=== PATIENT | male | born 1990 | race American Indian/Alaskan Native ===

== ENCOUNTER 2017-04-17 12:21 | Inpatient (IN) | payer SELFPAY ==
[~2017-04-17] VITALS: Ht 193 cm; Wt 90.9 kg
--- NOTE | 2017-04-17 13:24 | PHYS DOC ---
Past Medical History Past Medical History: Pancreatitis Past Surgical History: No Surgical History Alcohol Use: Heavy Drug Use: Benzodiazepine, Opiates Social History Narrative: friend's hydrocodone and xanax yesterday for pain Adult General Chief Complaint Chief Complaint: ABDOMINAL PAIN HPI HPI Patient is a 26 year old male with history of pancreatitis alcohol-induced who presents today abdominal pain moderate in nature with nausea and vomiting that began yesterday. Patient states his pain is on the left upper quadrant and radiates to the left flank region. Patient states he has been during this weekend. He states this typically induces his pancreatitis. Patient denies any fever. Denies any hematemesis. He is actively vomiting in the ED. Review of Systems Review of Systems Constitutional: Denies fever or chills [] Eyes: Denies change in visual acuity, redness, or eye pain [] HENT: Denies nasal congestion or sore throat [] Respiratory: Denies cough or shortness of breath [] Cardiovascular: No additional information not addressed in HPI [] GI: LUQ abdominal pain, nausea, vomiting, denies diarrhea [] : Denies dysuria or hematuria [] Musculoskeletal: Denies back pain or joint pain [] Integument: Denies rash or skin lesions [] Neurologic: Denies headache, focal weakness or sensory changes [] All other systems were reviewed and found to be within normal limits, except as documented in this note. Current Medications Current Medications Current Medications Medications (Trade) Dose Ordered Sig/Barb Start Time Stop Time Status Last Admin Dose Admin Famotidine (Pepcid Vial) 20 mg 1X ONCE 04/17/17 13:30 04/17/17 13:31 DC 04/17/17 13:45 20 MG Hydromorphone HCl (Dilaudid) 2 mg 1X ONCE 04/17/17 15:45 04/17/17 15:46 DC 04/17/17 15:44 2 MG Info (Do NOT chart on this entry -- for MONITORING) 1 each PRN DAILY PRN 04/17/17 13:30 04/19/17 13:29 Iohexol (Omnipaque 300 Mg/ml) 75 ml 1X ONCE 04/17/17 13:30 04/17/17 13:31 DC 04/17/17 13:30 75 ML Ondansetron HCl (Zofran) 8 mg 1X ONCE 04/17/17 13:30 04/17/17 13:31 DC 04/17/17 13:42 8 MG Sodium Chloride 1,000 ml @ 1,000 mls/hr 1X ONCE 04/17/17 13:30 04/17/17 14:29 DC 04/17/17 13:42 1,000 MLS/HR Allergies Allergies Allergies Coded Allergies Type Severity Reaction Last Updated Verified No Known Drug Allergies 04/17/17 No Physical Exam Physical Exam Constitutional: Well developed, well nourished, no acute distress, non-toxic appearance. [] HENT: Normocephalic, atraumatic, bilateral external ears normal, oropharynx moist, no oral exudates, nose normal. [] Eyes: PERRLA, EOMI, conjunctiva normal, no discharge. [] Neck: Normal range of motion, no tenderness, supple, no stridor. [] Cardiovascular:Heart rate regular rhythm, no murmur [] Lungs & Thorax: Bilateral breath sounds clear to auscultation [] Abdomen: Bowel sounds normal, soft, patient is actively vomiting in the ED. Tenderness on palpation of the left upper quadrant. Skin: Warm, dry, no erythema, no rash. [] Back: No tenderness, no CVA tenderness. [] Extremities: No tenderness, no cyanosis, no clubbing, ROM intact, no edema. [] Neurologic: Alert and oriented X 3, normal motor function, normal sensory function, no focal deficits noted. [] Psychologic: Affect normal, judgement normal, mood normal. [] Current Patient Data Vital Signs Vital Signs Date Time Temp Pulse Resp B/P (MAP) Pulse Ox O2 Delivery O2 Flow Rate FiO2 04/17/17 15:44 Room Air 04/17/17 15:04 56 16 153/100 (117) 98 04/17/17 12:55 97.9 97.9 Lab Values Laboratory Tests Test 04/17/17 13:05 04/17/17 15:04 White Blood Count 13.9 x10^3/uL (4.0-11.0) H Red Blood Count 5.29 x10^6/uL (4.30-5.70) Hemoglobin 16.4 g/dL (13.0-17.5) Hematocrit 47.1 % (39.0-53.0) Mean Corpuscular Volume 89 fL (79-100) Mean Corpuscular Hemoglobin 31 pg (25-35) Mean Corpuscular Hemoglobin Concent 35 g/dL (31-37) Red Cell Distribution Width 13.8 % (11.5-14.5) Platelet Count 170 x10^3/uL (140-400) Neutrophils (%) (Auto) 89 % (31-73) H Lymphocytes (%) (Auto) 5 % (24-48) L Monocytes (%) (Auto) 6 % (0-9) Eosinophils (%) (Auto) 0 % (0-3) Basophils (%) (Auto) 1 % (0-3) Neutrophils # (Auto) 12.4 x10^3uL (1.8-7.7) H Lymphocytes # (Auto) 0.6 x10^3/uL (1.0-4.8) L Monocytes # (Auto) 0.8 x10^3/uL (0.0-1.1) Eosinophils # (Auto) 0.0 x10^3/uL (0.0-0.7) Basophils # (Auto) 0.1 x10^3/uL (0.0-0.2) Segmented Neutrophils % 83 % (35-66) H Band Neutrophils % 10 % (0-9) H Lymphocytes % 1 % (24-48) L Atypical Lymphocytes % (Manual) 2 % (0-0) H Monocytes % 4 % (0-10) Platelet Estimate Adequate (ADEQUATE) Sodium Level 140 mmol/L (136-145) Potassium Level 3.7 mmol/L (3.5-5.1) Chloride Level 101 mmol/L (98-107) Carbon Dioxide Level 25 mmol/L (21-32) Anion Gap 14 (6-14) Blood Urea Nitrogen 13 mg/dL (8-26) Creatinine 0.8 mg/dL (0.7-1.3) Estimated GFR (Cockcroft-Gault) 118.8 BUN/Creatinine Ratio 16 (6-20) Glucose Level 131 mg/dL (70-99) H Calcium Level 9.6 mg/dL (8.5-10.1) Total Bilirubin 1.4 mg/dL (0.2-1.0) H Aspartate Amino Transferase (AST) 32 U/L (15-37) Alanine Aminotransferase (ALT) 48 U/L (16-63) Alkaline Phosphatase 117 U/L (46-116) H Total Protein 7.7 g/dL (6.4-8.2) Albumin 4.3 g/dL (3.4-5.0) Albumin/Globulin Ratio 1.3 (1.0-1.7) Lipase 2230 U/L (73-393) H Ethyl Alcohol Level < 10 mg/dL (0-10) Urine Collection Type Unknown Urine Color Yellow Urine Clarity Clear Urine pH 6.0 Urine Specific [place] >=1.030 Urine Protein Negative mg/dL (NEG-TRACE) Urine Glucose (UA) Negative mg/dL (NEG) Urine Ketones (Stick) Negative mg/dL (NEG) Urine Blood Negative (NEG) Urine Nitrite Negative (NEG) Urine Bilirubin Negative (NEG) Urine Urobilinogen Dipstick 0.2 mg/dL (0.2 mg/dL) Urine Leukocyte Esterase Negative (NEG) Urine RBC 1-2 /HPF (0-2) Urine WBC 0 /HPF (0-4) Urine Squamous Epithelial Cells Few /LPF Urine Bacteria 0 /HPF (0-FEW) Urine Mucus Mod /LPF Urine Opiates Screen Pos (NEG) Urine Methadone Screen Neg (NEG) Urine Barbiturates Neg (NEG) Urine Phencyclidine Screen Neg (NEG) Urine Amphetamine/Methamphetamine Neg (NEG) Urine Benzodiazepines Screen Neg (NEG) Urine Cocaine Screen Neg (NEG) Urine Cannabinoids Screen Neg (NEG) Urine Ethyl Alcohol Neg (NEG) Laboratory Tests 04/17/17 13:05 Laboratory Tests 04/17/17 13:05 EKG EKG [] Radiology/Procedures Radiology/Procedures []PROCEDURE: CT ABD PELV W/ IV CONTRST ONLY CT abdomen and pelvis with contrast Indication: Upper abdominal pain and vomiting since yesterday. History of pancreatitis. Technique: CT abdomen and pelvis with 75 mL of Omnipaque 300 with multi planar reformats. Comparison: None Findings: Heart is normal in size. No pericardial or pleural effusion. Clear lung bases. Liver is normal in morphology without focal hepatic lesion. Spleen is not enlarged. Gallbladder is distended without radiopaque gallstones. No pericholecystic fluid or gallbladder wall thickening. Pancreas is diffusely thickened with low attenuation in the pancreatic tail and peripancreatic inflammatory changes. There is a 4.2 x 2.1 cm fluid collection along the pancreatic tail the pancreas demonstrate homogeneous enhancement suggesting no necrosis. High attenuating nodule in the left lower quadrant measuring 1.7 cm likely accessory spleen. Trace amount of perisplenic fluid noted. No retroperitoneal or pelvic adenopathy. No bowel obstruction. Normal appendix. The main portal vein and splenic artery are patent. Multiple perigastric and perisplenic collaterals noted. Patency of distal splenic vein is not confirmed. Adrenal glands are within normal limits. No hydronephrosis or suspicious renal lesion. Bladder within normal limits. The prostate and seminal vesicles show no mass lesion. No suspicious bony lesion. Impression: Findings of acute interstitial edematous pancreatitis with small amount of peripancreatic fluid collection along the pancreatic tail. PQRS Compliance Statement: One or more of the following individualized dose reduction techniques were utilized for this examination: 1. Automated exposure control 2. Adjustment of the mA and/or kV according to patient size 3. Use of iterative reconstruction technique DICTATED and SIGNED BY: MECHELLE MONZON DO DATE: 04/17/17 1423 CC: JULIANA KRUEGER APRN; NO PCP; NON,STAFF ~ Course & Med Decision Making Course & Med Decision Making Pertinent Labs and Imaging studies reviewed. (See chart for details) This is a 26-year-old male patient presenting to the ED today with abdominal pain nausea and vomiting, he has history of pancreatitis and spent the drinking. CBC with a WBC of 13.9, lipase 2230 CT of the abdomen and pelvic was noted for acute interstitial demented] head to his with small amount of pancreatic fluid collection along the pancreatic tail. Patient was started on IV fluids, nausea and pain medicine. Consulted with Dari MANINNG for GI, who will follow-up with patient upon admission. Consulted Dr. iKm who accepted patient for admission. Dragon Disclaimer Dragon Disclaimer This electronic medical record was generated, in whole or in part, using a voice recognition dictation system. Departure Departure Impression: Primary Impression: Acute pancreatitis Additional Impression: ETOH abuse Disposition: ADMITTED INPATIENT Condition: STABLE Referrals: NO PCP (PCP) Problem Qualifiers Primary Impression: Acute pancreatitis Pancreatitis type: alcohol induced Acute pancreatitis complication: unspecified Qualified Codes: K85.20 - Alcohol induced acute pancreatitis without necrosis or infection JULIANA KRUEGER APRN Apr 17, 2017 13:24
[2017-04-17 13:28] LABS: BASO # 0.1 x10^3/uL (0.0-0.2); BASO % 1 % (0-3); EOS % 0 % (0-3); HEMATOCRIT 47.1 % (39.0-53.0); HEMOGLOBIN 16.4 g/dL (13.0-17.5); LYMPH # 0.6 x10^3/uL (1.0-4.8); LYMPH % 5 % (24-48); MEAN CORPUSCULAR HEMOGLOBIN 31 pg (25-35); MEAN CORPUSCULAR HGB CONC 35 g/dL (31-37); MEAN CORPUSCULAR VOLUME 89 fL (79-100); MONO % 6 % (0-9); NEUT % 89 % (31-73); PLATELET COUNT 170 x10^3/uL (140-400); RED BLOOD COUNT 5.29 x10^6/uL (4.30-5.70); RED CELL DISTRIBUTION WIDTH 13.8 % (11.5-14.5); WHITE BLOOD COUNT 13.9 x10^3/uL (4.0-11.0)
[2017-04-17] MEDS ORDERED: CONTRAST GIVEN MC PRN (13:30)
[2017-04-17] MEDS ORDERED: ONDANSETRON PF 4 MG/2 ML VIAL. IV ONE (13:30)
[2017-04-17] MEDS ORDERED: FAMOTIDINE 20 MG/2 ML VIAL IVP ONE (13:30)
[2017-04-17] MEDS ORDERED: IV NORMAL SALINE 1000ML BAG 1,000 ML IV ONE ×2 (13:30→16:15)
[2017-04-17] MEDS ORDERED: HYDROmorphone 2 MG/ML VIAL IV ONE ×2 (13:30→15:45)
[2017-04-17] MEDS ORDERED: IOHEXOL 300 MG/ML 100ML VIAL. IV ONE (13:30)
[2017-04-17 13:37] LABS: CALCIUM 9.6 mg/dL (8.5-10.1); CREATININE 0.8 mg/dL (0.7-1.3); GFR 118.8; POTASSIUM 3.7 mmol/L (3.5-5.1)
[2017-04-17 13:44] LABS: ALBUMIN 4.3 g/dL (3.4-5.0); ALBUMIN/GLOBULIN RATIO 1.3 (1.0-1.7); TOTAL BILIRUBIN 1.4 mg/dL (0.2-1.0); TOTAL PROTEIN 7.7 g/dL (6.4-8.2)
[2017-04-17 13:56] LABS: PLT ESTIMATE ADEQUATE (ADEQUATE)
[2017-04-17 15:18] LABS: BILIRUBIN,URINE NEGATIVE (NEG); GLUCOSE,URINE NEGATIVE (NEG); NITRITE,URINE NEGATIVE (NEG); PROTEIN,URINE NEGATIVE (NEG-TRACE); UROBILINOGEN,URINE 0.2 mg/dL (0.2 mg/dL)
[2017-04-17 15:33] LABS: BARBITURATES NEG (NEG); BENZODIAZEPINES NEG (NEG); CANNABINOIDS NEG (NEG); COCAINE NEG (NEG); METHADONE NEG (NEG); OPIATES POS (NEG); PHENCYCLIDINE NEG (NEG)
[2017-04-17 15:34] LABS: BACTERIA,URINE 0 /HPF (0-FEW); SQUAMOUS EPITHELIAL CELL,UR FEW /LPF; WBC,URINE 0 /HPF (0-4)
--- NOTE | 2017-04-17 15:48 | RAD ---
CT abdomen and pelvis with contrast Indication: Upper abdominal pain and vomiting since yesterday. History of pancreatitis. Technique: CT abdomen and pelvis with 75 mL of Omnipaque 300 with multi planar reformats. Comparison: None Findings: Heart is normal in size. No pericardial or pleural effusion. Clear lung bases. Liver is normal in morphology without focal hepatic lesion. Spleen is not enlarged. Gallbladder is distended without radiopaque gallstones. No pericholecystic fluid or gallbladder wall thickening. Pancreas is diffusely thickened with low attenuation in the pancreatic tail and peripancreatic inflammatory changes. There is a 4.2 x 2.1 cm fluid collection along the pancreatic tail the pancreas demonstrate homogeneous enhancement suggesting no necrosis. High attenuating nodule in the left lower quadrant measuring 1.7 cm likely accessory spleen. Trace amount of perisplenic fluid noted. No retroperitoneal or pelvic adenopathy. No bowel obstruction. Normal appendix. The main portal vein and splenic artery are patent. Multiple perigastric and perisplenic collaterals noted. Patency of distal splenic vein is not confirmed. Adrenal glands are within normal limits. No hydronephrosis or suspicious renal lesion. Bladder within normal limits. The prostate and seminal vesicles show no mass lesion. No suspicious bony lesion. Impression: Findings of acute interstitial edematous pancreatitis with small amount of peripancreatic fluid collection along the pancreatic tail. PQRS Compliance Statement: One or more of the following individualized dose reduction techniques were utilized for this examination: 1. Automated exposure control 2. Adjustment of the mA and/or kV according to patient size 3. Use of iterative reconstruction technique
[2017-04-17] MEDS ORDERED: ONDANSETRON PF 4 MG/2 ML VIAL. IV PRN ×2 (16:15→21:45)
[2017-04-17] MEDS ORDERED: HYDROmorphone 2 MG/ML VIAL IV PRN (16:15)
--- NOTE | 2017-04-17 17:33 | PDOC2 ---
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 Ill since yesterday w/ upper/left-sided abd pain and n/v. Pain radiates to left back, similar to three previous episodes of pancreatitis which have been attributed to alcohol. Binge drinks up to 10 beers + a few mixed drinks in a day. Can go a couple weeks w/o drinking, had been drinking recently (after Thanksgiving). Occasional reflux after certain foods, untreated. No diarrhea, constipation, or bleeding. No previous EGD or colonoscopy. No GB or liver history. No NSAIDs. Labs: WBC 13.9, bili 1.4, Alk Phos 117, lipase 2230. CT: pancreas is diffusely thickened with low attenuation in the pancreatic tail and peripancreatic inflammatory changes w/ a 4.2 x 2.1 cm fluid collection along the pancreatic tail the pancreas demonstrate homogeneous enhancement suggesting no necrosis. PMH: PMH: HTN, GERD, pancreatitis, exploratory surgery for abnormal imaging of back ( nothing found) FH: Family History: Cancer (breast - MGM, stomach and bone - MGF, esopahgeal - materal great uncle), Other (cholecystectomy - mother) Social History: ALCOHOL: heavy Drugs: None ROS: GEN: Denies fevers, chills, sweats HEENT: Denies blurred vision, sore throat CV: Denies chest pain RESP: Denies shortness of air, cough GI: Per HPI : Denies hematuria, dysuria ENDO: Denies weight changes NEURO: Denies confusion, dizziness MSK: Denies weakness, joint pain/swelling SKIN: Denies jaundice, pruritus Vitals: Vitals: Vital Signs Date Time Temp Pulse Resp B/P (MAP) Pulse Ox O2 Delivery O2 Flow Rate FiO2 04/17/17 15:44 Room Air 04/17/17 15:04 56 16 153/100 (117) 98 04/17/17 12:55 97.9 97.9 Labs: Labs: Laboratory Tests Test 04/17/17 13:05 04/17/17 15:04 White Blood Count 13.9 x10^3/uL (4.0-11.0) Red Blood Count 5.29 x10^6/uL (4.30-5.70) Hemoglobin 16.4 g/dL (13.0-17.5) Hematocrit 47.1 % (39.0-53.0) Mean Corpuscular Volume 89 fL (79-100) Mean Corpuscular Hemoglobin 31 pg (25-35) Mean Corpuscular Hemoglobin Concent 35 g/dL (31-37) Red Cell Distribution Width 13.8 % (11.5-14.5) Platelet Count 170 x10^3/uL (140-400) Neutrophils (%) (Auto) 89 % (31-73) Lymphocytes (%) (Auto) 5 % (24-48) Monocytes (%) (Auto) 6 % (0-9) Eosinophils (%) (Auto) 0 % (0-3) Basophils (%) (Auto) 1 % (0-3) Neutrophils # (Auto) 12.4 x10^3uL (1.8-7.7) Lymphocytes # (Auto) 0.6 x10^3/uL (1.0-4.8) Monocytes # (Auto) 0.8 x10^3/uL (0.0-1.1) Eosinophils # (Auto) 0.0 x10^3/uL (0.0-0.7) Basophils # (Auto) 0.1 x10^3/uL (0.0-0.2) Segmented Neutrophils % 83 % (35-66) Band Neutrophils % 10 % (0-9) Lymphocytes % 1 % (24-48) Atypical Lymphocytes % (Manual) 2 % (0-0) Monocytes % 4 % (0-10) Platelet Estimate Adequate (ADEQUATE) Sodium Level 140 mmol/L (136-145) Potassium Level 3.7 mmol/L (3.5-5.1) Chloride Level 101 mmol/L (98-107) Carbon Dioxide Level 25 mmol/L (21-32) Anion Gap 14 (6-14) Blood Urea Nitrogen 13 mg/dL (8-26) Creatinine 0.8 mg/dL (0.7-1.3) Estimated GFR (Cockcroft-Gault) 118.8 BUN/Creatinine Ratio 16 (6-20) Glucose Level 131 mg/dL (70-99) Calcium Level 9.6 mg/dL (8.5-10.1) Total Bilirubin 1.4 mg/dL (0.2-1.0) Aspartate Amino Transf (AST/SGOT) 32 U/L (15-37) Alanine Aminotransferase (ALT/SGPT) 48 U/L (16-63) Alkaline Phosphatase 117 U/L (46-116) Total Protein 7.7 g/dL (6.4-8.2) Albumin 4.3 g/dL (3.4-5.0) Albumin/Globulin Ratio 1.3 (1.0-1.7) Lipase 2230 U/L (73-393) Ethyl Alcohol Level < 10 mg/dL (0-10) Urine Collection Type Unknown Urine Color Yellow Urine Clarity Clear Urine pH 6.0 Urine Specific [place] >=1.030 Urine Protein Negative mg/dL (NEG-TRACE) Urine Glucose (UA) Negative mg/dL (NEG) Urine Ketones (Stick) Negative mg/dL (NEG) Urine Blood Negative (NEG) Urine Nitrite Negative (NEG) Urine Bilirubin Negative (NEG) Urine Urobilinogen Dipstick 0.2 mg/dL (0.2 mg/dL) Urine Leukocyte Esterase Negative (NEG) Urine RBC 1-2 /HPF (0-2) Urine WBC 0 /HPF (0-4) Urine Squamous Epithelial Cells Few /LPF Urine Bacteria 0 /HPF (0-FEW) Urine Mucus Mod /LPF Urine Opiates Screen Pos (NEG) Urine Methadone Screen Neg (NEG) Urine Barbiturates Neg (NEG) Urine Phencyclidine Screen Neg (NEG) Urine Amphetamine/Methamphetamine Neg (NEG) Urine Benzodiazepines Screen Neg (NEG) Urine Cocaine Screen Neg (NEG) Urine Cannabinoids Screen Neg (NEG) Urine Ethyl Alcohol Neg (NEG) Allergies: Coded Allergies: No Known Drug Allergies (Unverified , 04/17/17) Medications: Current Medications Medications (Trade) Dose Ordered Sig/Barb Route PRN Reason Start Time Stop Time Status Last Admin Dose Admin Sodium Chloride 1,000 ml @ 1,000 mls/hr 1X ONCE IV 04/17/17 13:30 04/17/17 14:29 DC 04/17/17 13:42 Ondansetron HCl (Zofran) 8 mg 1X ONCE IV 04/17/17 13:30 04/17/17 13:31 DC 04/17/17 13:42 Hydromorphone HCl (Dilaudid) 1 mg 1X ONCE IV 04/17/17 13:30 04/17/17 13:31 DC 04/17/17 13:44 Famotidine (Pepcid Vial) 20 mg 1X ONCE IVP 04/17/17 13:30 04/17/17 13:31 DC 04/17/17 13:45 Iohexol (Omnipaque 300 Mg/ml) 75 ml 1X ONCE IV 04/17/17 13:30 04/17/17 13:31 DC 04/17/17 13:30 Hydromorphone HCl (Dilaudid) 2 mg 1X ONCE IV 04/17/17 15:45 04/17/17 15:46 DC 04/17/17 15:44 Imaging: Imaging: CT A/P w/ IV contrast Findings: Heart is normal in size. No pericardial or pleural effusion. Clear lung bases. Liver is normal in morphology without focal hepatic lesion. Spleen is not enlarged. Gallbladder is distended without radiopaque gallstones. No pericholecystic fluid or gallbladder wall thickening. Pancreas is diffusely thickened with low attenuation in the pancreatic tail and peripancreatic inflammatory changes. There is a 4.2 x 2.1 cm fluid collection along the pancreatic tail the pancreas demonstrate homogeneous enhancement suggesting no necrosis. High attenuating nodule in the left lower quadrant measuring 1.7 cm likely accessory spleen. Trace amount of perisplenic fluid noted. No retroperitoneal or pelvic adenopathy. No bowel obstruction. Normal appendix. The main portal vein and splenic artery are patent. Multiple perigastric and perisplenic collaterals noted. Patency of distal splenic vein is not confirmed. Adrenal glands are within normal limits. No hydronephrosis or suspicious renal lesion. Bladder within normal limits. The prostate and seminal vesicles show no mass lesion. No suspicious bony lesion. Impression: Findings of acute interstitial edematous pancreatitis with small amount of peripancreatic fluid collection along the pancreatic tail. PE: GEN: NAD HEENT: Atraumatic, PERRL LUNGS: CTAB HEART: RRR ABD: epigastric to LUQ tenderness, BS quiet EXTREMITY: No edema SKIN: No rashes, no jaundice NEURO/PSYCH: A & O 3 A/P: A/P: Pancreatitis, alcohol abuse -4th episode; abd pain w/ n/v began yesterday -binge drinker -lipase 2200 -CT w/ diffusely thickened pancreas w/ fluid collection along the pancreatic tail HTN -- NPO, supportive care, withdrawal precautions. Will review CT findings w/ Dr. Propeck. Encouraged alcohol cessation. NHUNG CHURCHILL Apr 17, 2017 17:33
[2017-04-17 20:00] VITALS: BP 170/102
[2017-04-17] MEDS: HYDROmorphone 2 MG/ML VIAL IV PRN ×2 (21:06→23:08)
--- NOTE | 2017-04-17 21:55 | HP ---
ADMIT DATE: 04/17/2017 CHIEF COMPLAINT: Abdominal pain. HISTORY OF PRESENT ILLNESS: The patient is a 26-year-old gentleman with history of pancreatitis and alcohol abuse who presented with severe mid abdominal pain. He relates that he went on a drinking binge with his friend on Saturday, then started having mid abdominal pain on Saturday, which progressively got worse. He had nausea with this. Never has actually thrown up. Denies any chest pain, shortness of breath, fevers or chills. In the Emergency Room, he was found with a lipase of 2230 and admitted with pancreatitis. PAST MEDICAL HISTORY: Multiple bouts of pancreatitis, last one a few months ago. Alcohol abuse. FAMILY HISTORY: Multiple members including father and paternal grandfather with alcohol abuse. SOCIAL HISTORY: Lives by himself, excessive alcohol use, no tobacco or other drugs. 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 ALLERGIES: No known drug allergies. MEDICATIONS: None. REVIEW OF SYSTEMS: Positive as per HPI. The organ systems were reviewed and found negative otherwise. PHYSICAL EXAMINATION: VITAL SIGNS: From today show a blood pressure of 170/102, pulse of 57, respiratory rate at 19. He is afebrile, currently rating his pain a 10/10. GENERAL: He is alert and oriented, in mild distress, sitting upright as lying back makes his pain worse. HEENT: Shows no scleral icterus. NECK: Supple. LUNGS: Clear. HEART: Has regular rate and rhythm. ABDOMEN: Exquisitely tender above the umbilicus to the left upper quadrant. EXTREMITIES: Show no edema. SKIN: Warm, soft and dry without any rash. LABORATORY DATA: CBC with a WBC of 13.9, hemoglobin 16.4, platelets of 170. Chemistries with BUN and creatinine of 13 and 0.8, normal electrolytes, total bilirubin at 1.4. LFTs within normal, alkaline phosphatase at 117 and lipase at 2230. Tox screen with negative alcohol, positive for opiates, probably from ER administrations. IMAGING: CT of the abdomen and pelvis reveals acute interstitial edematous pancreatitis with small amount of peripancreatic fluid collection along the pancreatic tail. ASSESSMENT AND PLAN: The patient is a 26-year-old alcoholic with previous history of pancreatitis, now admitted for same. He is receiving Dilaudid q. 2 h. p.r.n. for pain. He will be kept n.p.o. He is receiving IV fluids. I will monitor for withdrawal symptoms. This is his second day of abstinence since his binge over the weekend. We would anticipate symptoms to solve fairly soon. According to him never had DTs in the past. We will monitor all his labs including LDH, lipase, platelets and hemoglobin closely with severe signs of pancreatitis. BRADY JANG MD DR: ANDRE/nts JOB#: [id number] / [id number] ESSENCE
[2017-04-17 23:00] VITALS: BP 169/113
[2017-04-17] MEDS ORDERED: METOPROLOL SUCC 24HR ER 25 MG TAB.ER.24H. PO SCH (23:45)
[2017-04-18] VITALS (7 sets, daily range): BP systolic 149–168; BP diastolic 107–120
[2017-04-18] MEDS ORDERED: METOPROLOL TARTRATE 5 MG/5 ML VIAL. IVP PRN (00:15)
[2017-04-18] MEDS: METOPROLOL TARTRATE 5 MG/5 ML VIAL. IVP PRN ×2 (00:17→11:23)
[2017-04-18] MEDS: HYDROmorphone 2 MG/ML VIAL IV PRN ×11 (01:05→22:09)
[2017-04-18 06:07] LABS: BASO % 0 % (0-3); EOS % 0 % (0-3); HEMATOCRIT 43.5 % (39.0-53.0); LYMPH # 0.7 x10^3/uL (1.0-4.8); LYMPH % 5 % (24-48); MEAN CORPUSCULAR HEMOGLOBIN 31 pg (25-35); MEAN CORPUSCULAR HGB CONC 35 g/dL (31-37); MEAN CORPUSCULAR VOLUME 90 fL (79-100); MONO % 7 % (0-9); NEUT % 87 % (31-73); PLATELET COUNT 129 x10^3/uL (140-400); RED BLOOD COUNT 4.84 x10^6/uL (4.30-5.70); RED CELL DISTRIBUTION WIDTH 13.9 % (11.5-14.5); WHITE BLOOD COUNT 14.4 x10^3/uL (4.0-11.0)
[2017-04-18 06:27] LABS: ALBUMIN 3.7 g/dL (3.4-5.0); CREATININE 0.7 mg/dL (0.7-1.3); GFR 138.6; POTASSIUM 3.6 mmol/L (3.5-5.1); TOTAL BILIRUBIN 0.9 mg/dL (0.2-1.0); TOTAL PROTEIN 7.4 g/dL (6.4-8.2)
--- NOTE | 2017-04-18 10:43 | PDOC ---
Subjective: Subjective: A little better today, pain is less. Really thirsty, really wants water. Objective: Vital Signs: Vital Signs Date Time Temp Pulse Resp B/P (MAP) Pulse Ox O2 Delivery O2 Flow Rate FiO2 04/18/17 09:57 Room Air 04/18/17 07:00 98.1 100 18 165/116 (132) 96 98.1 PE: GEN: NAD LUNGS: clear HEART: tachycardic ABD: epigastric soreness NEURO/PSYCH: A & O 3 A/P: Recurrent pancreatitis in setting of alcohol abuse -lipase improving (still >1000), LFTs WNL -CT 04/17 w/ diffusely thickened pancreas w/ fluid collection along the pancreatic tail Leukocytosis (worse), thrombocytopenia HTN, non-compliance -- Cautiously try clears. NHUNG CHURCHILL Apr 18, 2017 10:43
[2017-04-18] MEDS: PANTOPRAZOLE 40 MG TABLET.DR. PO SCH (11:22)
[2017-04-18 12:32] LABS: PROTHROMBIN TIME PATIENT 12.9 SEC (11.7-14.0)
--- NOTE | 2017-04-18 15:21 | PDOC ---
PROGRESS NOTES Chief Complaint Chief Complaint alcoholic pancreatitis, EtOH abuse hx nausea, abd pain leyukocytosis History of Present Illness History of Present Illness hydrate clears advance diet soon, plan to DC if able to karen full liquids Vitals Vitals Vital Signs Date Time Temp Pulse Resp B/P (MAP) Pulse Ox O2 Delivery O2 Flow Rate FiO2 04/18/17 14:42 97.9 102 18 163/110 (127) 97 Room Air 97.9 Physical Exam General: Alert, Cooperative, No acute distress Heart: Normal S1, Gallops Lungs: Wheezing Abdomen: Soft Extremities: No cyanosis, No edema Skin: No breakdown, No significant lesion Labs LABS Laboratory Tests Test 04/18/17 05:00 04/18/17 11:35 White Blood Count 14.4 x10^3/uL (4.0-11.0) Red Blood Count 4.84 x10^6/uL (4.30-5.70) Hemoglobin 15.0 g/dL (13.0-17.5) Hematocrit 43.5 % (39.0-53.0) Mean Corpuscular Volume 90 fL (79-100) Mean Corpuscular Hemoglobin 31 pg (25-35) Mean Corpuscular Hemoglobin Concent 35 g/dL (31-37) Red Cell Distribution Width 13.9 % (11.5-14.5) Platelet Count 129 x10^3/uL (140-400) Neutrophils (%) (Auto) 87 % (31-73) Lymphocytes (%) (Auto) 5 % (24-48) Monocytes (%) (Auto) 7 % (0-9) Eosinophils (%) (Auto) 0 % (0-3) Basophils (%) (Auto) 0 % (0-3) Neutrophils # (Auto) 12.5 x10^3uL (1.8-7.7) Lymphocytes # (Auto) 0.7 x10^3/uL (1.0-4.8) Monocytes # (Auto) 1.1 x10^3/uL (0.0-1.1) Eosinophils # (Auto) 0.0 x10^3/uL (0.0-0.7) Basophils # (Auto) 0.0 x10^3/uL (0.0-0.2) Sodium Level 136 mmol/L (136-145) Potassium Level 3.6 mmol/L (3.5-5.1) Chloride Level 101 mmol/L (98-107) Carbon Dioxide Level 27 mmol/L (21-32) Anion Gap 8 (6-14) Blood Urea Nitrogen 11 mg/dL (8-26) Creatinine 0.7 mg/dL (0.7-1.3) Estimated GFR (Cockcroft-Gault) 138.6 BUN/Creatinine Ratio 16 (6-20) Glucose Level 109 mg/dL (70-99) Calcium Level 9.0 mg/dL (8.5-10.1) Total Bilirubin 0.9 mg/dL (0.2-1.0) Aspartate Amino Transf (AST/SGOT) 25 U/L (15-37) Alanine Aminotransferase (ALT/SGPT) 36 U/L (16-63) Alkaline Phosphatase 91 U/L (46-116) Total Protein 7.4 g/dL (6.4-8.2) Albumin 3.7 g/dL (3.4-5.0) Albumin/Globulin Ratio 1.0 (1.0-1.7) Lipase 1280 U/L (73-393) Prothrombin Time 12.9 SEC (11.7-14.0) Prothromb Time International Ratio 1.0 (0.8-1.1) Review of Systems Review of Systems abd pain nausea Assessment and Plan Assessmemt and Plan Problems Medical Problems: (1) Acute pancreatitis Status: Acute (2) ETOH abuse Status: Acute Problems: Comment Review of Relevant I have reviewed the following items zain (where applicable) has been applied. Labs Laboratory Tests Test 04/17/17 13:05 04/17/17 15:04 04/18/17 05:00 04/18/17 11:35 White Blood Count 13.9 x10^3/uL (4.0-11.0) 14.4 x10^3/uL (4.0-11.0) Red Blood Count 5.29 x10^6/uL (4.30-5.70) 4.84 x10^6/uL (4.30-5.70) Hemoglobin 16.4 g/dL (13.0-17.5) 15.0 g/dL (13.0-17.5) Hematocrit 47.1 % (39.0-53.0) 43.5 % (39.0-53.0) Mean Corpuscular Volume 89 fL (79-100) 90 fL (79-100) Mean Corpuscular Hemoglobin 31 pg (25-35) 31 pg (25-35) Mean Corpuscular Hemoglobin Concent 35 g/dL (31-37) 35 g/dL (31-37) Red Cell Distribution Width 13.8 % (11.5-14.5) 13.9 % (11.5-14.5) Platelet Count 170 x10^3/uL (140-400) 129 x10^3/uL (140-400) Neutrophils (%) (Auto) 89 % (31-73) 87 % (31-73) Lymphocytes (%) (Auto) 5 % (24-48) 5 % (24-48) Monocytes (%) (Auto) 6 % (0-9) 7 % (0-9) Eosinophils (%) (Auto) 0 % (0-3) 0 % (0-3) Basophils (%) (Auto) 1 % (0-3) 0 % (0-3) Neutrophils # (Auto) 12.4 x10^3uL (1.8-7.7) 12.5 x10^3uL (1.8-7.7) Lymphocytes # (Auto) 0.6 x10^3/uL (1.0-4.8) 0.7 x10^3/uL (1.0-4.8) Monocytes # (Auto) 0.8 x10^3/uL (0.0-1.1) 1.1 x10^3/uL (0.0-1.1) Eosinophils # (Auto) 0.0 x10^3/uL (0.0-0.7) 0.0 x10^3/uL (0.0-0.7) Basophils # (Auto) 0.1 x10^3/uL (0.0-0.2) 0.0 x10^3/uL (0.0-0.2) Segmented Neutrophils % 83 % (35-66) Band Neutrophils % 10 % (0-9) Lymphocytes % 1 % (24-48) Atypical Lymphocytes % (Manual) 2 % (0-0) Monocytes % 4 % (0-10) Platelet Estimate Adequate (ADEQUATE) Sodium Level 140 mmol/L (136-145) 136 mmol/L (136-145) Potassium Level 3.7 mmol/L (3.5-5.1) 3.6 mmol/L (3.5-5.1) Chloride Level 101 mmol/L (98-107) 101 mmol/L (98-107) Carbon Dioxide Level 25 mmol/L (21-32) 27 mmol/L (21-32) Anion Gap 14 (6-14) 8 (6-14) Blood Urea Nitrogen 13 mg/dL (8-26) 11 mg/dL (8-26) Creatinine 0.8 mg/dL (0.7-1.3) 0.7 mg/dL (0.7-1.3) Estimated GFR (Cockcroft-Gault) 118.8 138.6 BUN/Creatinine Ratio 16 (6-20) 16 (6-20) Glucose Level 131 mg/dL (70-99) 109 mg/dL (70-99) Calcium Level 9.6 mg/dL (8.5-10.1) 9.0 mg/dL (8.5-10.1) Total Bilirubin 1.4 mg/dL (0.2-1.0) 0.9 mg/dL (0.2-1.0) Aspartate Amino Transf (AST/SGOT) 32 U/L (15-37) 25 U/L (15-37) Alanine Aminotransferase (ALT/SGPT) 48 U/L (16-63) 36 U/L (16-63) Alkaline Phosphatase 117 U/L (46-116) 91 U/L (46-116) Total Protein 7.7 g/dL (6.4-8.2) 7.4 g/dL (6.4-8.2) Albumin 4.3 g/dL (3.4-5.0) 3.7 g/dL (3.4-5.0) Albumin/Globulin Ratio 1.3 (1.0-1.7) 1.0 (1.0-1.7) Lipase 2230 U/L (73-393) 1280 U/L (73-393) Ethyl Alcohol Level < 10 mg/dL (0-10) Urine Collection Type Unknown Urine Color Yellow Urine Clarity Clear Urine pH 6.0 Urine Specific [place] >=1.030 Urine Protein Negative mg/dL (NEG-TRACE) Urine Glucose (UA) Negative mg/dL (NEG) Urine Ketones (Stick) Negative mg/dL (NEG) Urine Blood Negative (NEG) Urine Nitrite Negative (NEG) Urine Bilirubin Negative (NEG) Urine Urobilinogen Dipstick 0.2 mg/dL (0.2 mg/dL) Urine Leukocyte Esterase Negative (NEG) Urine RBC 1-2 /HPF (0-2) Urine WBC 0 /HPF (0-4) Urine Squamous Epithelial Cells Few /LPF Urine Bacteria 0 /HPF (0-FEW) Urine Mucus Mod /LPF Urine Opiates Screen Pos (NEG) Urine Methadone Screen Neg (NEG) Urine Barbiturates Neg (NEG) Urine Phencyclidine Screen Neg (NEG) Urine Amphetamine/Methamphetamine Neg (NEG) Urine Benzodiazepines Screen Neg (NEG) Urine Cocaine Screen Neg (NEG) Urine Cannabinoids Screen Neg (NEG) Urine Ethyl Alcohol Neg (NEG) Prothrombin Time 12.9 SEC (11.7-14.0) Prothromb Time International Ratio 1.0 (0.8-1.1) Laboratory Tests Test 04/18/17 05:00 04/18/17 11:35 White Blood Count 14.4 x10^3/uL (4.0-11.0) Red Blood Count 4.84 x10^6/uL (4.30-5.70) Hemoglobin 15.0 g/dL (13.0-17.5) Hematocrit 43.5 % (39.0-53.0) Mean Corpuscular Volume 90 fL (79-100) Mean Corpuscular Hemoglobin 31 pg (25-35) Mean Corpuscular Hemoglobin Concent 35 g/dL (31-37) Red Cell Distribution Width 13.9 % (11.5-14.5) Platelet Count 129 x10^3/uL (140-400) Neutrophils (%) (Auto) 87 % (31-73) Lymphocytes (%) (Auto) 5 % (24-48) Monocytes (%) (Auto) 7 % (0-9) Eosinophils (%) (Auto) 0 % (0-3) Basophils (%) (Auto) 0 % (0-3) Neutrophils # (Auto) 12.5 x10^3uL (1.8-7.7) Lymphocytes # (Auto) 0.7 x10^3/uL (1.0-4.8) Monocytes # (Auto) 1.1 x10^3/uL (0.0-1.1) Eosinophils # (Auto) 0.0 x10^3/uL (0.0-0.7) Basophils # (Auto) 0.0 x10^3/uL (0.0-0.2) Sodium Level 136 mmol/L (136-145) Potassium Level 3.6 mmol/L (3.5-5.1) Chloride Level 101 mmol/L (98-107) Carbon Dioxide Level 27 mmol/L (21-32) Anion Gap 8 (6-14) Blood Urea Nitrogen 11 mg/dL (8-26) Creatinine 0.7 mg/dL (0.7-1.3) Estimated GFR (Cockcroft-Gault) 138.6 BUN/Creatinine Ratio 16 (6-20) Glucose Level 109 mg/dL (70-99) Calcium Level 9.0 mg/dL (8.5-10.1) Total Bilirubin 0.9 mg/dL (0.2-1.0) Aspartate Amino Transf (AST/SGOT) 25 U/L (15-37) Alanine Aminotransferase (ALT/SGPT) 36 U/L (16-63) Alkaline Phosphatase 91 U/L (46-116) Total Protein 7.4 g/dL (6.4-8.2) Albumin 3.7 g/dL (3.4-5.0) Albumin/Globulin Ratio 1.0 (1.0-1.7) Lipase 1280 U/L (73-393) Prothrombin Time 12.9 SEC (11.7-14.0) Prothromb Time International Ratio 1.0 (0.8-1.1) Medications Current Medications Sodium Chloride 1,000 ml @ 1,000 mls/hr 1X ONCE IV Last administered on 04/17 13:42; Start 04/17/17 at 13:30; Stop 04/17/17 at 14:29; Status DC Ondansetron HCl (Zofran) 8 mg 1X ONCE IV Last administered on 04/17/17 13:42 ; Start 04/17/17 at 13:30; Stop 04/17/17 at 13:31; Status DC Hydromorphone HCl (Dilaudid) 1 mg 1X ONCE IV Last administered on 04/17/17 13:44; Start 04/17/17 at 13:30; Stop 04/17/17 at 13:31; Status DC Famotidine (Pepcid Vial) 20 mg 1X ONCE IVP Last administered on 04/17/17 13: 45; Start 04/17/17 at 13:30; Stop 04/17/17 at 13:31; Status DC Iohexol (Omnipaque 300 Mg/ml) 75 ml 1X ONCE IV Last administered on 13:30; Start 04/17/17 at 13:30; Stop 04/17/17 at 13:31; Status DC Info (Do NOT chart on this entry -- for MONITORING) 1 each PRN DAILY PRN MC SEE COMMENTS; Start 04/17/17 at 13:30; Stop 04/19/17 at 13:29 Hydromorphone HCl (Dilaudid) 2 mg 1X ONCE IV Last administered on 04/17/17 15:44; Start 04/17/17 at 15:45; Stop 04/17/17 at 15:46; Status DC Ondansetron HCl (Zofran) 4 mg PRN Q8HRS PRN IV NAUSEA/VOMITING; Start at 16:15; Stop 04/17/17 at 21:46; Status DC Sodium Chloride 1,000 ml @ 125 mls/hr 1X ONCE IV Last administered on 17:59; Start 04/17/17 at 16:15; Stop 04/18/17 at 00:14; Status DC Hydromorphone HCl (Dilaudid) 1 mg Q3HRS PRN IV pain Last administered on 18:05; Start 04/17/17 at 16:15; Stop 04/17/17 at 20:58; Status DC Hydromorphone HCl (Dilaudid) 1 mg PRN Q2HR PRN IV pain Last administered on 14:03; Start 04/17/17 at 21:00 Ondansetron HCl (Zofran) 4 mg PRN Q6HRS PRN IV NAUSEA/VOMITING; Start at 21:45 Metoprolol Succinate (Toprol Xl) 25 mg BID PO ; Start 04/17/17 at 23:45; Status Cancel Metoprolol Tartrate (Lopressor) 25 mg BID PO ; Start 04/18/17 at 23:55; Stop 04/18/17 at 23:55; Status DC Metoprolol Tartrate (Lopressor Vial) 5 mg PRN Q6HRS PRN IVP HYPERTENSION, SEE COMMENTS Last administered on 04/18/17 11:23; Start 04/18/17 at 00:00 Metoprolol Tartrate (Lopressor Vial) 5 mg Q6HRS PRN IVP HYPERTENSION, SEE COMMENTS; Start 04/18/17 at 00:15; Status UNV Pantoprazole Sodium (Protonix) 40 mg DAILYAC PO Last administered on 11:22; Start 04/18/17 at 11:30 Potassium Chloride/Sodium Chloride 1,000 ml @ 100 mls/hr Q10H IV Last administered on 04/18/17 14:48; Start 04/18/17 at 14:15 Lorazepam (Ativan) 2 mg PRN Q4HRS PRN IV ANXIETY / AGITATION Last administered on 04/18/17 14:49; Start 04/18/17 at 14:45 Vitals/I & O Vital Sign - Last 24 Hours 04/17/17 04/17/17 04/17/17 04/17/17 15:44 16:04 17:04 18:04 Pulse 54 78 54 Resp 20 15 14 B/P (MAP) 173/117 (135) 168/109 (128) 183/114 (137) Pulse Ox 97 96 97 O2 Delivery Room Air Room Air Room Air Room Air 04/17/17 04/17/17 04/17/17 04/17/17 18:05 18:34 19:04 20:00 Temp 98.5 98.5 Pulse 58 59 57 Resp 22 16 16 19 B/P (MAP) 179/114 (135) 165/111 (129) 170/102 (124) Pulse Ox 96 95 96 97 O2 Delivery Room Air Room Air Room Air Room Air 04/17/17 04/17/17 04/17/17 04/18/17 21:06 23:00 23:08 00:17 Temp 98.4 98.4 Pulse 61 95 Resp 20 17 20 B/P (MAP) 169/113 (131) 167/110 Pulse Ox 95 96 95 O2 Delivery Room Air Room Air Room Air 04/18/17 04/18/17 04/18/17 04/18/17 01:05 03:00 03:06 03:39 Temp 98.6 98.6 Pulse 84 Resp 20 19 20 B/P (MAP) 168/120 (136) 161/108 (125) Pulse Ox 94 97 O2 Delivery Room Air Room Air Room Air 04/18/17 04/18/17 04/18/17 04/18/17 05:10 06:00 07:00 07:44 Temp 98.1 98.1 Pulse 100 Resp 20 20 18 B/P (MAP) 165/116 (132) Pulse Ox 94 95 96 O2 Delivery Room Air Room Air Room Air 04/18/17 04/18/17 04/18/17 04/18/17 08:00 09:57 11:00 11:23 Temp 98.0 98.0 Pulse 105 105 Resp 18 B/P (MAP) 157/113 (128) 157/113 Pulse Ox 95 O2 Delivery Room Air Room Air Room Air 04/18/17 04/18/17 04/18/17 04/18/17 12:03 14:03 14:35 14:42 Temp 97.9 97.9 Pulse 102 Resp 18 B/P (MAP) 163/110 (127) Pulse Ox 97 O2 Delivery Room Air Room Air Room Air Room Air Intake and Output 04/17/17 04/17/17 04/18/17 15:00 23:00 07:00 Intake Total 1000 ml Output Total 400 ml Balance 1000 ml -400 ml PUSHPA ARAMBULA MD Apr 18, 2017 15:21
[2017-04-18] MEDS ORDERED: METOPROLOL TART IMMED RELEASE 25 MG TABLET. PO SCH (23:55)
[2017-04-19] MEDS: HYDROmorphone 2 MG/ML VIAL IV PRN ×10 (00:15→22:41)
[2017-04-19 03:00] VITALS: BP 143/103
[2017-04-19] MEDS: METOPROLOL TARTRATE 5 MG/5 ML VIAL. IVP PRN (03:38)
[2017-04-19 07:00] VITALS: BP 150/92
[2017-04-19 07:02] LABS: BASO % 0 % (0-3); EOS % 0 % (0-3); HEMOGLOBIN 14.6 g/dL (13.0-17.5); LYMPH # 0.8 x10^3/uL (1.0-4.8); LYMPH % 4 % (24-48); MEAN CORPUSCULAR HEMOGLOBIN 31 pg (25-35); MEAN CORPUSCULAR HGB CONC 34 g/dL (31-37); MEAN CORPUSCULAR VOLUME 90 fL (79-100); MONO % 10 % (0-9); NEUT % 86 % (31-73); PLATELET COUNT 123 x10^3/uL (140-400); RED BLOOD COUNT 4.77 x10^6/uL (4.30-5.70); RED CELL DISTRIBUTION WIDTH 13.7 % (11.5-14.5); WHITE BLOOD COUNT 20.2 x10^3/uL (4.0-11.0)
[2017-04-19 07:09] LABS: ALBUMIN 3.2 g/dL (3.4-5.0); ALBUMIN/GLOBULIN RATIO 0.8 (1.0-1.7); CALCIUM 9.3 mg/dL (8.5-10.1); GFR 91.8; POTASSIUM 3.4 mmol/L (3.5-5.1); TOTAL PROTEIN 7.3 g/dL (6.4-8.2)
[2017-04-19] MEDS: PANTOPRAZOLE 40 MG TABLET.DR. PO SCH (07:43)
[2017-04-19] MEDS ORDERED: LORazepam 1 MG TABLET PO ONE (10:30)
[2017-04-19] MEDS ORDERED: METOPROLOL TART IMMED RELEASE 25 MG TABLET. PO ONE (10:30)
--- NOTE | 2017-04-19 10:41 | PDOC ---
PROGRESS NOTES Chief Complaint Chief Complaint alcoholic pancreatitis, EtOH abuse hx nausea, abd pain leukocytosis History of Present Illness History of Present Illness weird dreams overnight pain persists, poor PO intake clears, he does not want to advance, still getting IV pain meds hypokalemia today, getting 20meq in NS, 125 advance diet soon, plan to DC if able to karen full liquids Vitals Vitals Vital Signs Date Time Temp Pulse Resp B/P (MAP) Pulse Ox O2 Delivery O2 Flow Rate FiO2 04/19/17 10:38 Room Air 04/19/17 10:31 119 141/92 04/19/17 07:00 97.7 18 95 97.7 Physical Exam General: Alert, Oriented X3, Cooperative, No acute distress Heart: Normal S1, Gallops Lungs: Wheezing Abdomen: Soft Extremities: No cyanosis, No edema Skin: No breakdown, No significant lesion Labs LABS Laboratory Tests Test 04/18/17 11:35 04/19/17 05:15 Prothrombin Time 12.9 SEC (11.7-14.0) Prothromb Time International Ratio 1.0 (0.8-1.1) White Blood Count 20.2 x10^3/uL (4.0-11.0) Red Blood Count 4.77 x10^6/uL (4.30-5.70) Hemoglobin 14.6 g/dL (13.0-17.5) Hematocrit 43.0 % (39.0-53.0) Mean Corpuscular Volume 90 fL (79-100) Mean Corpuscular Hemoglobin 31 pg (25-35) Mean Corpuscular Hemoglobin Concent 34 g/dL (31-37) Red Cell Distribution Width 13.7 % (11.5-14.5) Platelet Count 123 x10^3/uL (140-400) Neutrophils (%) (Auto) 86 % (31-73) Lymphocytes (%) (Auto) 4 % (24-48) Monocytes (%) (Auto) 10 % (0-9) Eosinophils (%) (Auto) 0 % (0-3) Basophils (%) (Auto) 0 % (0-3) Neutrophils # (Auto) 17.3 x10^3uL (1.8-7.7) Lymphocytes # (Auto) 0.8 x10^3/uL (1.0-4.8) Monocytes # (Auto) 2.0 x10^3/uL (0.0-1.1) Eosinophils # (Auto) 0.0 x10^3/uL (0.0-0.7) Basophils # (Auto) 0.0 x10^3/uL (0.0-0.2) Sodium Level 135 mmol/L (136-145) Potassium Level 3.4 mmol/L (3.5-5.1) Chloride Level 98 mmol/L (98-107) Carbon Dioxide Level 25 mmol/L (21-32) Anion Gap 12 (6-14) Blood Urea Nitrogen 10 mg/dL (8-26) Creatinine 1.0 mg/dL (0.7-1.3) Estimated GFR (Cockcroft-Gault) 91.8 BUN/Creatinine Ratio 10 (6-20) Glucose Level 109 mg/dL (70-99) Calcium Level 9.3 mg/dL (8.5-10.1) Total Bilirubin 2.0 mg/dL (0.2-1.0) Aspartate Amino Transf (AST/SGOT) 21 U/L (15-37) Alanine Aminotransferase (ALT/SGPT) 23 U/L (16-63) Alkaline Phosphatase 89 U/L (46-116) Total Protein 7.3 g/dL (6.4-8.2) Albumin 3.2 g/dL (3.4-5.0) Albumin/Globulin Ratio 0.8 (1.0-1.7) Assessment and Plan Assessmemt and Plan Problems Medical Problems: (1) Acute pancreatitis Status: Acute (2) ETOH abuse Status: Acute Problems: Comment Review of Relevant I have reviewed the following items zain (where applicable) has been applied. Labs Laboratory Tests Test 04/17/17 13:05 04/17/17 15:04 04/18/17 05:00 04/18/17 11:35 White Blood Count 13.9 x10^3/uL (4.0-11.0) 14.4 x10^3/uL (4.0-11.0) Red Blood Count 5.29 x10^6/uL (4.30-5.70) 4.84 x10^6/uL (4.30-5.70) Hemoglobin 16.4 g/dL (13.0-17.5) 15.0 g/dL (13.0-17.5) Hematocrit 47.1 % (39.0-53.0) 43.5 % (39.0-53.0) Mean Corpuscular Volume 89 fL (79-100) 90 fL (79-100) Mean Corpuscular Hemoglobin 31 pg (25-35) 31 pg (25-35) Mean Corpuscular Hemoglobin Concent 35 g/dL (31-37) 35 g/dL (31-37) Red Cell Distribution Width 13.8 % (11.5-14.5) 13.9 % (11.5-14.5) Platelet Count 170 x10^3/uL (140-400) 129 x10^3/uL (140-400) Neutrophils (%) (Auto) 89 % (31-73) 87 % (31-73) Lymphocytes (%) (Auto) 5 % (24-48) 5 % (24-48) Monocytes (%) (Auto) 6 % (0-9) 7 % (0-9) Eosinophils (%) (Auto) 0 % (0-3) 0 % (0-3) Basophils (%) (Auto) 1 % (0-3) 0 % (0-3) Neutrophils # (Auto) 12.4 x10^3uL (1.8-7.7) 12.5 x10^3uL (1.8-7.7) Lymphocytes # (Auto) 0.6 x10^3/uL (1.0-4.8) 0.7 x10^3/uL (1.0-4.8) Monocytes # (Auto) 0.8 x10^3/uL (0.0-1.1) 1.1 x10^3/uL (0.0-1.1) Eosinophils # (Auto) 0.0 x10^3/uL (0.0-0.7) 0.0 x10^3/uL (0.0-0.7) Basophils # (Auto) 0.1 x10^3/uL (0.0-0.2) 0.0 x10^3/uL (0.0-0.2) Segmented Neutrophils % 83 % (35-66) Band Neutrophils % 10 % (0-9) Lymphocytes % 1 % (24-48) Atypical Lymphocytes % (Manual) 2 % (0-0) Monocytes % 4 % (0-10) Platelet Estimate Adequate (ADEQUATE) Sodium Level 140 mmol/L (136-145) 136 mmol/L (136-145) Potassium Level 3.7 mmol/L (3.5-5.1) 3.6 mmol/L (3.5-5.1) Chloride Level 101 mmol/L (98-107) 101 mmol/L (98-107) Carbon Dioxide Level 25 mmol/L (21-32) 27 mmol/L (21-32) Anion Gap 14 (6-14) 8 (6-14) Blood Urea Nitrogen 13 mg/dL (8-26) 11 mg/dL (8-26) Creatinine 0.8 mg/dL (0.7-1.3) 0.7 mg/dL (0.7-1.3) Estimated GFR (Cockcroft-Gault) 118.8 138.6 BUN/Creatinine Ratio 16 (6-20) 16 (6-20) Glucose Level 131 mg/dL (70-99) 109 mg/dL (70-99) Calcium Level 9.6 mg/dL (8.5-10.1) 9.0 mg/dL (8.5-10.1) Total Bilirubin 1.4 mg/dL (0.2-1.0) 0.9 mg/dL (0.2-1.0) Aspartate Amino Transf (AST/SGOT) 32 U/L (15-37) 25 U/L (15-37) Alanine Aminotransferase (ALT/SGPT) 48 U/L (16-63) 36 U/L (16-63) Alkaline Phosphatase 117 U/L (46-116) 91 U/L (46-116) Total Protein 7.7 g/dL (6.4-8.2) 7.4 g/dL (6.4-8.2) Albumin 4.3 g/dL (3.4-5.0) 3.7 g/dL (3.4-5.0) Albumin/Globulin Ratio 1.3 (1.0-1.7) 1.0 (1.0-1.7) Lipase 2230 U/L (73-393) 1280 U/L (73-393) Ethyl Alcohol Level < 10 mg/dL (0-10) Urine Collection Type Unknown Urine Color Yellow Urine Clarity Clear Urine pH 6.0 Urine Specific [place] >=1.030 Urine Protein Negative mg/dL (NEG-TRACE) Urine Glucose (UA) Negative mg/dL (NEG) Urine Ketones (Stick) Negative mg/dL (NEG) Urine Blood Negative (NEG) Urine Nitrite Negative (NEG) Urine Bilirubin Negative (NEG) Urine Urobilinogen Dipstick 0.2 mg/dL (0.2 mg/dL) Urine Leukocyte Esterase Negative (NEG) Urine RBC 1-2 /HPF (0-2) Urine WBC 0 /HPF (0-4) Urine Squamous Epithelial Cells Few /LPF Urine Bacteria 0 /HPF (0-FEW) Urine Mucus Mod /LPF Urine Opiates Screen Pos (NEG) Urine Methadone Screen Neg (NEG) Urine Barbiturates Neg (NEG) Urine Phencyclidine Screen Neg (NEG) Urine Amphetamine/Methamphetamine Neg (NEG) Urine Benzodiazepines Screen Neg (NEG) Urine Cocaine Screen Neg (NEG) Urine Cannabinoids Screen Neg (NEG) Urine Ethyl Alcohol Neg (NEG) Prothrombin Time 12.9 SEC (11.7-14.0) Prothromb Time International Ratio 1.0 (0.8-1.1) Test 04/19/17 05:15 White Blood Count 20.2 x10^3/uL (4.0-11.0) Red Blood Count 4.77 x10^6/uL (4.30-5.70) Hemoglobin 14.6 g/dL (13.0-17.5) Hematocrit 43.0 % (39.0-53.0) Mean Corpuscular Volume 90 fL (79-100) Mean Corpuscular Hemoglobin 31 pg (25-35) Mean Corpuscular Hemoglobin Concent 34 g/dL (31-37) Red Cell Distribution Width 13.7 % (11.5-14.5) Platelet Count 123 x10^3/uL (140-400) Neutrophils (%) (Auto) 86 % (31-73) Lymphocytes (%) (Auto) 4 % (24-48) Monocytes (%) (Auto) 10 % (0-9) Eosinophils (%) (Auto) 0 % (0-3) Basophils (%) (Auto) 0 % (0-3) Neutrophils # (Auto) 17.3 x10^3uL (1.8-7.7) Lymphocytes # (Auto) 0.8 x10^3/uL (1.0-4.8) Monocytes # (Auto) 2.0 x10^3/uL (0.0-1.1) Eosinophils # (Auto) 0.0 x10^3/uL (0.0-0.7) Basophils # (Auto) 0.0 x10^3/uL (0.0-0.2) Sodium Level 135 mmol/L (136-145) Potassium Level 3.4 mmol/L (3.5-5.1) Chloride Level 98 mmol/L (98-107) Carbon Dioxide Level 25 mmol/L (21-32) Anion Gap 12 (6-14) Blood Urea Nitrogen 10 mg/dL (8-26) Creatinine 1.0 mg/dL (0.7-1.3) Estimated GFR (Cockcroft-Gault) 91.8 BUN/Creatinine Ratio 10 (6-20) Glucose Level 109 mg/dL (70-99) Calcium Level 9.3 mg/dL (8.5-10.1) Total Bilirubin 2.0 mg/dL (0.2-1.0) Aspartate Amino Transf (AST/SGOT) 21 U/L (15-37) Alanine Aminotransferase (ALT/SGPT) 23 U/L (16-63) Alkaline Phosphatase 89 U/L (46-116) Total Protein 7.3 g/dL (6.4-8.2) Albumin 3.2 g/dL (3.4-5.0) Albumin/Globulin Ratio 0.8 (1.0-1.7) Laboratory Tests Test 04/18/17 11:35 04/19/17 05:15 Prothrombin Time 12.9 SEC (11.7-14.0) Prothromb Time International Ratio 1.0 (0.8-1.1) White Blood Count 20.2 x10^3/uL (4.0-11.0) Red Blood Count 4.77 x10^6/uL (4.30-5.70) Hemoglobin 14.6 g/dL (13.0-17.5) Hematocrit 43.0 % (39.0-53.0) Mean Corpuscular Volume 90 fL (79-100) Mean Corpuscular Hemoglobin 31 pg (25-35) Mean Corpuscular Hemoglobin Concent 34 g/dL (31-37) Red Cell Distribution Width 13.7 % (11.5-14.5) Platelet Count 123 x10^3/uL (140-400) Neutrophils (%) (Auto) 86 % (31-73) Lymphocytes (%) (Auto) 4 % (24-48) Monocytes (%) (Auto) 10 % (0-9) Eosinophils (%) (Auto) 0 % (0-3) Basophils (%) (Auto) 0 % (0-3) Neutrophils # (Auto) 17.3 x10^3uL (1.8-7.7) Lymphocytes # (Auto) 0.8 x10^3/uL (1.0-4.8) Monocytes # (Auto) 2.0 x10^3/uL (0.0-1.1) Eosinophils # (Auto) 0.0 x10^3/uL (0.0-0.7) Basophils # (Auto) 0.0 x10^3/uL (0.0-0.2) Sodium Level 135 mmol/L (136-145) Potassium Level 3.4 mmol/L (3.5-5.1) Chloride Level 98 mmol/L (98-107) Carbon Dioxide Level 25 mmol/L (21-32) Anion Gap 12 (6-14) Blood Urea Nitrogen 10 mg/dL (8-26) Creatinine 1.0 mg/dL (0.7-1.3) Estimated GFR (Cockcroft-Gault) 91.8 BUN/Creatinine Ratio 10 (6-20) Glucose Level 109 mg/dL (70-99) Calcium Level 9.3 mg/dL (8.5-10.1) Total Bilirubin 2.0 mg/dL (0.2-1.0) Aspartate Amino Transf (AST/SGOT) 21 U/L (15-37) Alanine Aminotransferase (ALT/SGPT) 23 U/L (16-63) Alkaline Phosphatase 89 U/L (46-116) Total Protein 7.3 g/dL (6.4-8.2) Albumin 3.2 g/dL (3.4-5.0) Albumin/Globulin Ratio 0.8 (1.0-1.7) Medications Current Medications Sodium Chloride 1,000 ml @ 1,000 mls/hr 1X ONCE IV Last administered on 04/17 13:42; Start 04/17/17 at 13:30; Stop 04/17/17 at 14:29; Status DC Ondansetron HCl (Zofran) 8 mg 1X ONCE IV Last administered on 04/17/17 13:42 ; Start 04/17/17 at 13:30; Stop 04/17/17 at 13:31; Status DC Hydromorphone HCl (Dilaudid) 1 mg 1X ONCE IV Last administered on 04/17/17 13:44; Start 04/17/17 at 13:30; Stop 04/17/17 at 13:31; Status DC Famotidine (Pepcid Vial) 20 mg 1X ONCE IVP Last administered on 04/17/17 13: 45; Start 04/17/17 at 13:30; Stop 04/17/17 at 13:31; Status DC Iohexol (Omnipaque 300 Mg/ml) 75 ml 1X ONCE IV Last administered on 13:30; Start 04/17/17 at 13:30; Stop 04/17/17 at 13:31; Status DC Info (Do NOT chart on this entry -- for MONITORING) 1 each PRN DAILY PRN MC SEE COMMENTS; Start 04/17/17 at 13:30; Stop 04/19/17 at 13:29 Hydromorphone HCl (Dilaudid) 2 mg 1X ONCE IV Last administered on 04/17/17 15:44; Start 04/17/17 at 15:45; Stop 04/17/17 at 15:46; Status DC Ondansetron HCl (Zofran) 4 mg PRN Q8HRS PRN IV NAUSEA/VOMITING; Start at 16:15; Stop 04/17/17 at 21:46; Status DC Sodium Chloride 1,000 ml @ 125 mls/hr 1X ONCE IV Last administered on 17:59; Start 04/17/17 at 16:15; Stop 04/18/17 at 00:14; Status DC Hydromorphone HCl (Dilaudid) 1 mg Q3HRS PRN IV pain Last administered on 18:05; Start 04/17/17 at 16:15; Stop 04/17/17 at 20:58; Status DC Hydromorphone HCl (Dilaudid) 1 mg PRN Q2HR PRN IV pain Last administered on 10:08; Start 04/17/17 at 21:00 Ondansetron HCl (Zofran) 4 mg PRN Q6HRS PRN IV NAUSEA/VOMITING; Start at 21:45 Metoprolol Succinate (Toprol Xl) 25 mg BID PO ; Start 04/17/17 at 23:45; Status Cancel Metoprolol Tartrate (Lopressor) 25 mg BID PO ; Start 04/18/17 at 23:55; Stop 04/18/17 at 23:55; Status DC Metoprolol Tartrate (Lopressor Vial) 5 mg PRN Q6HRS PRN IVP HYPERTENSION, SEE COMMENTS Last administered on 04/19/17 03:38; Start 04/18/17 at 00:00 Metoprolol Tartrate (Lopressor Vial) 5 mg Q6HRS PRN IVP HYPERTENSION, SEE COMMENTS; Start 04/18/17 at 00:15; Status UNV Pantoprazole Sodium (Protonix) 40 mg DAILYAC PO Last administered on 04/19/17 07:43; Start 04/18/17 at 11:30 Potassium Chloride/Sodium Chloride 1,000 ml @ 100 mls/hr Q10H IV Last administered on 04/19/17 01:36; Start 04/18/17 at 14:15 Lorazepam (Ativan) 2 mg PRN Q4HRS PRN IV ANXIETY / AGITATION Last administered on 04/19/17 07:44; Start 04/18/17 at 14:45 Lorazepam (Ativan) 1 mg 1X ONCE PO Last administered on 04/19/17 10:31; Start 04/19/17 at 10:30; Stop 04/19/17 at 10:31; Status DC Metoprolol Tartrate (Lopressor) 25 mg 1X ONCE PO Last administered on 10:31; Start 04/19/17 at 10:30; Stop 04/19/17 at 10:31; Status DC Metoprolol Tartrate (Lopressor) 25 mg BID PO ; Start 04/19/17 at 21:00 Vitals/I & O Vital Sign - Last 24 Hours 11/30/04/18/17 04/18/17 04/18/17 11:00 11:23 12:03 14:03 Temp 98.0 98.0 Pulse 105 105 Resp 18 B/P (MAP) 157/113 (128) 157/113 Pulse Ox 95 O2 Delivery Room Air Room Air Room Air 04/18/17 04/18/17 04/18/17 04/18/17 14:42 16:16 18:29 19:00 Temp 97.9 99.4 97.9 99.4 Pulse 102 115 Resp 18 20 B/P (MAP) 163/110 (127) 158/109 (125) Pulse Ox 97 95 O2 Delivery Room Air Room Air Room Air Room Air 04/18/17 04/18/17 04/18/17 04/18/17 20:00 20:08 22:09 23:00 Temp 99.5 99.5 Pulse 129 Resp 20 B/P (MAP) 149/107 (121) Pulse Ox 97 97 93 O2 Delivery Room Air Room Air Room Air Room Air 04/19/17 04/19/17 04/19/17 04/19/17 00:15 03:00 03:02 03:38 Temp 99.9 99.9 Pulse 130 130 Resp 20 B/P (MAP) 143/103 (116) 149/110 Pulse Ox 97 95 97 O2 Delivery Room Air Room Air 04/19/17 04/19/17 04/19/17 04/19/17 05:00 05:30 07:00 07:44 Temp 97.7 97.7 Pulse 116 Resp 18 B/P (MAP) 150/92 (111) Pulse Ox 97 97 95 O2 Delivery Room Air Room Air Room Air 04/19/17 04/19/17 04/19/17 04/19/17 08:30 10:08 10:31 10:38 Pulse 119 B/P (MAP) 141/92 O2 Delivery Room Air Room Air Room Air Intake and Output 04/18/17 04/18/17 04/19/17 15:00 23:00 07:00 Intake Total 640 ml 2574 ml Output Total 350 ml Balance 640 ml 2224 ml PUSHPA ARAMBULA MD Apr 19, 2017 10:41
[2017-04-19 10:57] VITALS: BP 141/92
--- NOTE | 2017-04-19 11:29 | PDOC ---
G I PROGRESS NOTE Reason for Follow-up Pancreatitis/abd pain Subjective Pain persists Physical Exam Lungs decreased BS CV S1 S2 ABD +hypoactive BS, soft, epigastric tenderness to palpation Review of Relevant I have reviewed the following items zain (where applicable) has been applied. Labs Laboratory Tests Test 04/17/17 13:05 04/17/17 15:04 04/18/17 05:00 04/18/17 11:35 White Blood Count 13.9 x10^3/uL (4.0-11.0) 14.4 x10^3/uL (4.0-11.0) Red Blood Count 5.29 x10^6/uL (4.30-5.70) 4.84 x10^6/uL (4.30-5.70) Hemoglobin 16.4 g/dL (13.0-17.5) 15.0 g/dL (13.0-17.5) Hematocrit 47.1 % (39.0-53.0) 43.5 % (39.0-53.0) Mean Corpuscular Volume 89 fL (79-100) 90 fL (79-100) Mean Corpuscular Hemoglobin 31 pg (25-35) 31 pg (25-35) Mean Corpuscular Hemoglobin Concent 35 g/dL (31-37) 35 g/dL (31-37) Red Cell Distribution Width 13.8 % (11.5-14.5) 13.9 % (11.5-14.5) Platelet Count 170 x10^3/uL (140-400) 129 x10^3/uL (140-400) Neutrophils (%) (Auto) 89 % (31-73) 87 % (31-73) Lymphocytes (%) (Auto) 5 % (24-48) 5 % (24-48) Monocytes (%) (Auto) 6 % (0-9) 7 % (0-9) Eosinophils (%) (Auto) 0 % (0-3) 0 % (0-3) Basophils (%) (Auto) 1 % (0-3) 0 % (0-3) Neutrophils # (Auto) 12.4 x10^3uL (1.8-7.7) 12.5 x10^3uL (1.8-7.7) Lymphocytes # (Auto) 0.6 x10^3/uL (1.0-4.8) 0.7 x10^3/uL (1.0-4.8) Monocytes # (Auto) 0.8 x10^3/uL (0.0-1.1) 1.1 x10^3/uL (0.0-1.1) Eosinophils # (Auto) 0.0 x10^3/uL (0.0-0.7) 0.0 x10^3/uL (0.0-0.7) Basophils # (Auto) 0.1 x10^3/uL (0.0-0.2) 0.0 x10^3/uL (0.0-0.2) Segmented Neutrophils % 83 % (35-66) Band Neutrophils % 10 % (0-9) Lymphocytes % 1 % (24-48) Atypical Lymphocytes % (Manual) 2 % (0-0) Monocytes % 4 % (0-10) Platelet Estimate Adequate (ADEQUATE) Sodium Level 140 mmol/L (136-145) 136 mmol/L (136-145) Potassium Level 3.7 mmol/L (3.5-5.1) 3.6 mmol/L (3.5-5.1) Chloride Level 101 mmol/L (98-107) 101 mmol/L (98-107) Carbon Dioxide Level 25 mmol/L (21-32) 27 mmol/L (21-32) Anion Gap 14 (6-14) 8 (6-14) Blood Urea Nitrogen 13 mg/dL (8-26) 11 mg/dL (8-26) Creatinine 0.8 mg/dL (0.7-1.3) 0.7 mg/dL (0.7-1.3) Estimated GFR (Cockcroft-Gault) 118.8 138.6 BUN/Creatinine Ratio 16 (6-20) 16 (6-20) Glucose Level 131 mg/dL (70-99) 109 mg/dL (70-99) Calcium Level 9.6 mg/dL (8.5-10.1) 9.0 mg/dL (8.5-10.1) Total Bilirubin 1.4 mg/dL (0.2-1.0) 0.9 mg/dL (0.2-1.0) Aspartate Amino Transf (AST/SGOT) 32 U/L (15-37) 25 U/L (15-37) Alanine Aminotransferase (ALT/SGPT) 48 U/L (16-63) 36 U/L (16-63) Alkaline Phosphatase 117 U/L (46-116) 91 U/L (46-116) Total Protein 7.7 g/dL (6.4-8.2) 7.4 g/dL (6.4-8.2) Albumin 4.3 g/dL (3.4-5.0) 3.7 g/dL (3.4-5.0) Albumin/Globulin Ratio 1.3 (1.0-1.7) 1.0 (1.0-1.7) Lipase 2230 U/L (73-393) 1280 U/L (73-393) Ethyl Alcohol Level < 10 mg/dL (0-10) Urine Collection Type Unknown Urine Color Yellow Urine Clarity Clear Urine pH 6.0 Urine Specific [place] >=1.030 Urine Protein Negative mg/dL (NEG-TRACE) Urine Glucose (UA) Negative mg/dL (NEG) Urine Ketones (Stick) Negative mg/dL (NEG) Urine Blood Negative (NEG) Urine Nitrite Negative (NEG) Urine Bilirubin Negative (NEG) Urine Urobilinogen Dipstick 0.2 mg/dL (0.2 mg/dL) Urine Leukocyte Esterase Negative (NEG) Urine RBC 1-2 /HPF (0-2) Urine WBC 0 /HPF (0-4) Urine Squamous Epithelial Cells Few /LPF Urine Bacteria 0 /HPF (0-FEW) Urine Mucus Mod /LPF Urine Opiates Screen Pos (NEG) Urine Methadone Screen Neg (NEG) Urine Barbiturates Neg (NEG) Urine Phencyclidine Screen Neg (NEG) Urine Amphetamine/Methamphetamine Neg (NEG) Urine Benzodiazepines Screen Neg (NEG) Urine Cocaine Screen Neg (NEG) Urine Cannabinoids Screen Neg (NEG) Urine Ethyl Alcohol Neg (NEG) Prothrombin Time 12.9 SEC (11.7-14.0) Prothromb Time International Ratio 1.0 (0.8-1.1) Test 04/19/17 05:15 04/19/17 09:45 White Blood Count 20.2 x10^3/uL (4.0-11.0) Red Blood Count 4.77 x10^6/uL (4.30-5.70) Hemoglobin 14.6 g/dL (13.0-17.5) Hematocrit 43.0 % (39.0-53.0) Mean Corpuscular Volume 90 fL (79-100) Mean Corpuscular Hemoglobin 31 pg (25-35) Mean Corpuscular Hemoglobin Concent 34 g/dL (31-37) Red Cell Distribution Width 13.7 % (11.5-14.5) Platelet Count 123 x10^3/uL (140-400) Neutrophils (%) (Auto) 86 % (31-73) Lymphocytes (%) (Auto) 4 % (24-48) Monocytes (%) (Auto) 10 % (0-9) Eosinophils (%) (Auto) 0 % (0-3) Basophils (%) (Auto) 0 % (0-3) Neutrophils # (Auto) 17.3 x10^3uL (1.8-7.7) Lymphocytes # (Auto) 0.8 x10^3/uL (1.0-4.8) Monocytes # (Auto) 2.0 x10^3/uL (0.0-1.1) Eosinophils # (Auto) 0.0 x10^3/uL (0.0-0.7) Basophils # (Auto) 0.0 x10^3/uL (0.0-0.2) Sodium Level 135 mmol/L (136-145) Potassium Level 3.4 mmol/L (3.5-5.1) Chloride Level 98 mmol/L (98-107) Carbon Dioxide Level 25 mmol/L (21-32) Anion Gap 12 (6-14) Blood Urea Nitrogen 10 mg/dL (8-26) Creatinine 1.0 mg/dL (0.7-1.3) Estimated GFR (Cockcroft-Gault) 91.8 BUN/Creatinine Ratio 10 (6-20) Glucose Level 109 mg/dL (70-99) Calcium Level 9.3 mg/dL (8.5-10.1) Total Bilirubin 2.0 mg/dL (0.2-1.0) Aspartate Amino Transf (AST/SGOT) 21 U/L (15-37) Alanine Aminotransferase (ALT/SGPT) 23 U/L (16-63) Alkaline Phosphatase 89 U/L (46-116) Total Protein 7.3 g/dL (6.4-8.2) Albumin 3.2 g/dL (3.4-5.0) Albumin/Globulin Ratio 0.8 (1.0-1.7) Magnesium Level 1.6 mg/dL (1.8-2.4) Laboratory Tests Test 04/18/17 11:35 04/19/17 05:15 04/19/17 09:45 Prothrombin Time 12.9 SEC (11.7-14.0) Prothromb Time International Ratio 1.0 (0.8-1.1) White Blood Count 20.2 x10^3/uL (4.0-11.0) Red Blood Count 4.77 x10^6/uL (4.30-5.70) Hemoglobin 14.6 g/dL (13.0-17.5) Hematocrit 43.0 % (39.0-53.0) Mean Corpuscular Volume 90 fL (79-100) Mean Corpuscular Hemoglobin 31 pg (25-35) Mean Corpuscular Hemoglobin Concent 34 g/dL (31-37) Red Cell Distribution Width 13.7 % (11.5-14.5) Platelet Count 123 x10^3/uL (140-400) Neutrophils (%) (Auto) 86 % (31-73) Lymphocytes (%) (Auto) 4 % (24-48) Monocytes (%) (Auto) 10 % (0-9) Eosinophils (%) (Auto) 0 % (0-3) Basophils (%) (Auto) 0 % (0-3) Neutrophils # (Auto) 17.3 x10^3uL (1.8-7.7) Lymphocytes # (Auto) 0.8 x10^3/uL (1.0-4.8) Monocytes # (Auto) 2.0 x10^3/uL (0.0-1.1) Eosinophils # (Auto) 0.0 x10^3/uL (0.0-0.7) Basophils # (Auto) 0.0 x10^3/uL (0.0-0.2) Sodium Level 135 mmol/L (136-145) Potassium Level 3.4 mmol/L (3.5-5.1) Chloride Level 98 mmol/L (98-107) Carbon Dioxide Level 25 mmol/L (21-32) Anion Gap 12 (6-14) Blood Urea Nitrogen 10 mg/dL (8-26) Creatinine 1.0 mg/dL (0.7-1.3) Estimated GFR (Cockcroft-Gault) 91.8 BUN/Creatinine Ratio 10 (6-20) Glucose Level 109 mg/dL (70-99) Calcium Level 9.3 mg/dL (8.5-10.1) Total Bilirubin 2.0 mg/dL (0.2-1.0) Aspartate Amino Transf (AST/SGOT) 21 U/L (15-37) Alanine Aminotransferase (ALT/SGPT) 23 U/L (16-63) Alkaline Phosphatase 89 U/L (46-116) Total Protein 7.3 g/dL (6.4-8.2) Albumin 3.2 g/dL (3.4-5.0) Albumin/Globulin Ratio 0.8 (1.0-1.7) Magnesium Level 1.6 mg/dL (1.8-2.4) Medications Current Medications Sodium Chloride 1,000 ml @ 1,000 mls/hr 1X ONCE IV Last administered on 04/17 13:42; Start 04/17/17 at 13:30; Stop 04/17/17 at 14:29; Status DC Ondansetron HCl (Zofran) 8 mg 1X ONCE IV Last administered on 04/17/17 13:42 ; Start 04/17/17 at 13:30; Stop 04/17/17 at 13:31; Status DC Hydromorphone HCl (Dilaudid) 1 mg 1X ONCE IV Last administered on 04/17/17 13:44; Start 04/17/17 at 13:30; Stop 04/17/17 at 13:31; Status DC Famotidine (Pepcid Vial) 20 mg 1X ONCE IVP Last administered on 04/17/17 13: 45; Start 04/17/17 at 13:30; Stop 04/17/17 at 13:31; Status DC Iohexol (Omnipaque 300 Mg/ml) 75 ml 1X ONCE IV Last administered on 13:30; Start 04/17/17 at 13:30; Stop 04/17/17 at 13:31; Status DC Info (Do NOT chart on this entry -- for MONITORING) 1 each PRN DAILY PRN MC SEE COMMENTS; Start 04/17/17 at 13:30; Stop 04/19/17 at 13:29 Hydromorphone HCl (Dilaudid) 2 mg 1X ONCE IV Last administered on 04/17/17 15:44; Start 04/17/17 at 15:45; Stop 04/17/17 at 15:46; Status DC Ondansetron HCl (Zofran) 4 mg PRN Q8HRS PRN IV NAUSEA/VOMITING; Start at 16:15; Stop 04/17/17 at 21:46; Status DC Sodium Chloride 1,000 ml @ 125 mls/hr 1X ONCE IV Last administered on 17:59; Start 04/17/17 at 16:15; Stop 04/18/17 at 00:14; Status DC Hydromorphone HCl (Dilaudid) 1 mg Q3HRS PRN IV pain Last administered on 18:05; Start 04/17/17 at 16:15; Stop 04/17/17 at 20:58; Status DC Hydromorphone HCl (Dilaudid) 1 mg PRN Q2HR PRN IV pain Last administered on 10:08; Start 04/17/17 at 21:00 Ondansetron HCl (Zofran) 4 mg PRN Q6HRS PRN IV NAUSEA/VOMITING; Start at 21:45 Metoprolol Succinate (Toprol Xl) 25 mg BID PO ; Start 04/17/17 at 23:45; Status Cancel Metoprolol Tartrate (Lopressor) 25 mg BID PO ; Start 04/18/17 at 23:55; Stop 04/18/17 at 23:55; Status DC Metoprolol Tartrate (Lopressor Vial) 5 mg PRN Q6HRS PRN IVP HYPERTENSION, SEE COMMENTS Last administered on 04/19/17 03:38; Start 04/18/17 at 00:00 Metoprolol Tartrate (Lopressor Vial) 5 mg Q6HRS PRN IVP HYPERTENSION, SEE COMMENTS; Start 04/18/17 at 00:15; Status UNV Pantoprazole Sodium (Protonix) 40 mg DAILYAC PO Last administered on 04/19/17 07:43; Start 04/18/17 at 11:30 Potassium Chloride/Sodium Chloride 1,000 ml @ 100 mls/hr Q10H IV Last administered on 04/19/17 01:36; Start 04/18/17 at 14:15 Lorazepam (Ativan) 2 mg PRN Q4HRS PRN IV ANXIETY / AGITATION Last administered on 04/19/17 07:44; Start 04/18/17 at 14:45 Lorazepam (Ativan) 1 mg 1X ONCE PO Last administered on 04/19/17 10:31; Start 04/19/17 at 10:30; Stop 04/19/17 at 10:31; Status DC Metoprolol Tartrate (Lopressor) 25 mg 1X ONCE PO Last administered on 10:31; Start 04/19/17 at 10:30; Stop 04/19/17 at 10:31; Status DC Metoprolol Tartrate (Lopressor) 25 mg BID PO ; Start 04/19/17 at 21:00 Vitals/I & O Vital Sign - Last 24 Hours 04/18/17 04/18/17 04/18/17 04/18/17 12:03 14:03 14:42 16:16 Temp 97.9 97.9 Pulse 102 Resp 18 B/P (MAP) 163/110 (127) Pulse Ox 97 O2 Delivery Room Air Room Air Room Air Room Air 04/18/17 04/18/17 04/18/17 04/18/17 18:29 19:00 20:00 20:08 Temp 99.4 99.4 Pulse 115 Resp 20 B/P (MAP) 158/109 (125) Pulse Ox 95 97 O2 Delivery Room Air Room Air Room Air Room Air 04/18/17 04/18/17 04/19/17 04/19/17 22:09 23:00 00:15 03:00 Temp 99.5 99.9 99.5 99.9 Pulse 129 130 Resp 20 20 B/P (MAP) 149/107 (121) 143/103 (116) Pulse Ox 97 93 97 95 O2 Delivery Room Air Room Air Room Air 04/19/17 04/19/17 04/19/17 04/19/17 03:02 03:38 05:00 05:30 Pulse 130 B/P (MAP) 149/110 Pulse Ox 97 97 97 O2 Delivery Room Air Room Air 04/19/17 04/19/17 04/19/17 04/19/17 07:00 07:44 08:30 10:08 Temp 97.7 97.7 Pulse 116 Resp 18 B/P (MAP) 150/92 (111) Pulse Ox 95 O2 Delivery Room Air Room Air Room Air Room Air 04/19/17 04/19/17 04/19/17 10:31 10:38 10:57 Temp 97.9 97.9 Pulse 119 119 Resp 18 B/P (MAP) 141/92 141/92 (108) Pulse Ox 98 O2 Delivery Room Air Room Air Intake and Output 04/18/17 04/18/17 04/19/17 15:00 23:00 07:00 Intake Total 640 ml 2574 ml Output Total 350 ml Balance 640 ml 2224 ml Problem List Problems Medical Problems: (1) Acute pancreatitis Status: Acute (2) ETOH abuse Status: Acute Assessment Acute pancreatitis- most likely alcohol induced, rising leukopcytosis and tachycardia noted, medical therapy recommended, interval CT scan next week if pain/abnormal labs persist to assess for complication-pseudocyst, pancreatic necrosis, and/or phlegmon. ADDISON THOMPSON MD Apr 19, 2017 11:29
[2017-04-19 14:40] VITALS: BP 142/90
[2017-04-19 19:22] VITALS: BP 156/93
[2017-04-19] MEDS: METOPROLOL TART IMMED RELEASE 25 MG TABLET. PO SCH (20:46)
[2017-04-19 23:22] VITALS: BP 139/96
[2017-04-20] MEDS: HYDROmorphone 2 MG/ML VIAL IV PRN ×9 (00:51→23:02)
[2017-04-20 03:11] VITALS: BP 132/90
[2017-04-20 07:00] VITALS: BP 144/97
[2017-04-20] MEDS: PANTOPRAZOLE 40 MG TABLET.DR. PO SCH (08:12)
[2017-04-20] MEDS: METOPROLOL TART IMMED RELEASE 25 MG TABLET. PO SCH ×2 (08:13→20:52)
[2017-04-20] MEDS: NICOTINE 7MG PATCH. TD PRN (08:18)
[2017-04-20 10:41] VITALS: BP 138/98
--- NOTE | 2017-04-20 14:40 | PDOC ---
Subjective: Subjective: tolerating broth. Wants to advance diet Objective: Vital Signs: Vital Signs Date Time Temp Pulse Resp B/P (MAP) Pulse Ox O2 Delivery O2 Flow Rate FiO2 04/20/17 14:07 16 Room Air 04/20/17 10:41 97.8 102 138/98 (111) 96 97.8 Labs: none today Physical Exam: Physical Exam: GEN: NAD HEENT: OP clear CV: S1S2 without murmurs, rubs, or gallops RESP: CTAB without wheezing, rhonchi, or crackles ABD: NABS, SNT/ND EXT: No edema NEURO: AAO x 3 Assessment & Plan: Assessment : 1) Pancreatitis Plan: Check labs (WBC 20 yesterday) Advance diet Problems: BULMARO TEIXEIRA MD Apr 20, 2017 14:40
--- NOTE | 2017-04-20 18:18 | PDOC ---
PROGRESS NOTES Chief Complaint Chief Complaint alcoholic pancreatitis, EtOH abuse hx nausea, abd pain leukocytosis History of Present Illness History of Present Illness weird dreams overnight pain persists, poor PO intake, liquid diet, req. IV fliud clears, he does not want to advance, still getting IV pain meds advance diet soon, plan to DC if able to karen full liquids Vitals Vitals Vital Signs Date Time Temp Pulse Resp B/P (MAP) Pulse Ox O2 Delivery O2 Flow Rate FiO2 04/20/17 16:56 16 Room Air 04/20/17 10:41 97.8 102 138/98 (111) 96 97.8 Physical Exam General: Alert, Oriented X3, Cooperative, No acute distress Heart: Normal S1, Gallops Lungs: Wheezing Abdomen: Soft Extremities: No cyanosis, No edema Skin: No breakdown, No significant lesion Review of Systems Review of Systems nausea, abd pain Assessment and Plan Assessmemt and Plan Problems Medical Problems: (1) Acute pancreatitis Status: Acute (2) ETOH abuse Status: Acute Problems: Comment Review of Relevant I have reviewed the following items zain (where applicable) has been applied. Labs Laboratory Tests Test 04/19/17 05:15 04/19/17 09:45 White Blood Count 20.2 x10^3/uL (4.0-11.0) Red Blood Count 4.77 x10^6/uL (4.30-5.70) Hemoglobin 14.6 g/dL (13.0-17.5) Hematocrit 43.0 % (39.0-53.0) Mean Corpuscular Volume 90 fL (79-100) Mean Corpuscular Hemoglobin 31 pg (25-35) Mean Corpuscular Hemoglobin Concent 34 g/dL (31-37) Red Cell Distribution Width 13.7 % (11.5-14.5) Platelet Count 123 x10^3/uL (140-400) Neutrophils (%) (Auto) 86 % (31-73) Lymphocytes (%) (Auto) 4 % (24-48) Monocytes (%) (Auto) 10 % (0-9) Eosinophils (%) (Auto) 0 % (0-3) Basophils (%) (Auto) 0 % (0-3) Neutrophils # (Auto) 17.3 x10^3uL (1.8-7.7) Lymphocytes # (Auto) 0.8 x10^3/uL (1.0-4.8) Monocytes # (Auto) 2.0 x10^3/uL (0.0-1.1) Eosinophils # (Auto) 0.0 x10^3/uL (0.0-0.7) Basophils # (Auto) 0.0 x10^3/uL (0.0-0.2) Sodium Level 135 mmol/L (136-145) Potassium Level 3.4 mmol/L (3.5-5.1) Chloride Level 98 mmol/L (98-107) Carbon Dioxide Level 25 mmol/L (21-32) Anion Gap 12 (6-14) Blood Urea Nitrogen 10 mg/dL (8-26) Creatinine 1.0 mg/dL (0.7-1.3) Estimated GFR (Cockcroft-Gault) 91.8 BUN/Creatinine Ratio 10 (6-20) Glucose Level 109 mg/dL (70-99) Calcium Level 9.3 mg/dL (8.5-10.1) Total Bilirubin 2.0 mg/dL (0.2-1.0) Aspartate Amino Transf (AST/SGOT) 21 U/L (15-37) Alanine Aminotransferase (ALT/SGPT) 23 U/L (16-63) Alkaline Phosphatase 89 U/L (46-116) Total Protein 7.3 g/dL (6.4-8.2) Albumin 3.2 g/dL (3.4-5.0) Albumin/Globulin Ratio 0.8 (1.0-1.7) Magnesium Level 1.6 mg/dL (1.8-2.4) Medications Current Medications Sodium Chloride 1,000 ml @ 1,000 mls/hr 1X ONCE IV Last administered on 04/17 13:42; Start 04/17/17 at 13:30; Stop 04/17/17 at 14:29; Status DC Ondansetron HCl (Zofran) 8 mg 1X ONCE IV Last administered on 04/17/17 13:42 ; Start 04/17/17 at 13:30; Stop 04/17/17 at 13:31; Status DC Hydromorphone HCl (Dilaudid) 1 mg 1X ONCE IV Last administered on 04/17/17 13:44; Start 04/17/17 at 13:30; Stop 04/17/17 at 13:31; Status DC Famotidine (Pepcid Vial) 20 mg 1X ONCE IVP Last administered on 04/17/17 13: 45; Start 04/17/17 at 13:30; Stop 04/17/17 at 13:31; Status DC Iohexol (Omnipaque 300 Mg/ml) 75 ml 1X ONCE IV Last administered on 13:30; Start 04/17/17 at 13:30; Stop 04/17/17 at 13:31; Status DC Info (Do NOT chart on this entry -- for MONITORING) 1 each PRN DAILY PRN MC SEE COMMENTS; Start 04/17/17 at 13:30; Stop 04/19/17 at 13:29; Status DC Hydromorphone HCl (Dilaudid) 2 mg 1X ONCE IV Last administered on 04/17/17 15:44; Start 04/17/17 at 15:45; Stop 04/17/17 at 15:46; Status DC Ondansetron HCl (Zofran) 4 mg PRN Q8HRS PRN IV NAUSEA/VOMITING; Start at 16:15; Stop 04/17/17 at 21:46; Status DC Sodium Chloride 1,000 ml @ 125 mls/hr 1X ONCE IV Last administered on 17:59; Start 04/17/17 at 16:15; Stop 04/18/17 at 00:14; Status DC Hydromorphone HCl (Dilaudid) 1 mg Q3HRS PRN IV pain Last administered on 18:05; Start 04/17/17 at 16:15; Stop 04/17/17 at 20:58; Status DC Hydromorphone HCl (Dilaudid) 1 mg PRN Q2HR PRN IV pain Last administered on 16:26; Start 04/17/17 at 21:00 Ondansetron HCl (Zofran) 4 mg PRN Q6HRS PRN IV NAUSEA/VOMITING; Start at 21:45 Metoprolol Succinate (Toprol Xl) 25 mg BID PO ; Start 04/17/17 at 23:45; Status Cancel Metoprolol Tartrate (Lopressor) 25 mg BID PO ; Start 04/18/17 at 23:55; Stop 04/18/17 at 23:55; Status DC Metoprolol Tartrate (Lopressor Vial) 5 mg PRN Q6HRS PRN IVP HYPERTENSION, SEE COMMENTS Last administered on 04/19/17 03:38; Start 04/18/17 at 00:00 Metoprolol Tartrate (Lopressor Vial) 5 mg Q6HRS PRN IVP HYPERTENSION, SEE COMMENTS; Start 04/18/17 at 00:15; Status UNV Pantoprazole Sodium (Protonix) 40 mg DAILYAC PO Last administered on 04/20/17 08:12; Start 04/18/17 at 11:30 Potassium Chloride/Sodium Chloride 1,000 ml @ 100 mls/hr Q10H IV Last administered on 04/20/17 08:19; Start 04/18/17 at 14:15 Lorazepam (Ativan) 2 mg PRN Q4HRS PRN IV ANXIETY / AGITATION Last administered on 04/20/17 12:31; Start 04/18/17 at 14:45 Lorazepam (Ativan) 1 mg 1X ONCE PO Last administered on 04/19/17 10:31; Start 04/19/17 at 10:30; Stop 04/19/17 at 10:31; Status DC Metoprolol Tartrate (Lopressor) 25 mg 1X ONCE PO Last administered on 10:31; Start 04/19/17 at 10:30; Stop 04/19/17 at 10:31; Status DC Metoprolol Tartrate (Lopressor) 25 mg BID PO Last administered on 04/20/17 08: 13; Start 04/19/17 at 21:00 Nicotine (Nicoderm Cq 7mg) 1 patch PRN DAILY PRN TD SMOKING CESSATION Last administered on 04/20/17 08:18; Start 04/19/17 at 22:00 Nicotine Polacrilex (Nicorette Gum) 1 each PRN Q1HR PRN BC SMOKING CESSATION; Start 04/20/17 at 17:45 Vitals/I & O Vital Sign - Last 24 Hours 04/19/17 04/19/17 04/19/17 04/19/17 19:20 19:22 19:23 20:46 Temp 98.0 98.0 Pulse 122 122 Resp 18 16 B/P (MAP) 156/93 (114) 156/93 Pulse Ox 95 O2 Delivery Room Air Room Air Room Air 04/19/17 04/19/17 04/20/17 04/20/17 22:41 23:22 00:51 03:11 Temp 98.5 98.6 98.5 98.6 Pulse 107 103 Resp 18 18 18 18 B/P (MAP) 139/96 (110) 132/90 (104) Pulse Ox 98 93 O2 Delivery Room Air Room Air Room Air Room Air 04/20/17 04/20/17 04/20/17 04/20/17 03:21 07:00 08:00 08:13 Temp 98.0 98.0 Pulse 105 Resp 18 18 16 B/P (MAP) 144/97 (113) Pulse Ox 98 O2 Delivery Room Air Room Air Room Air Room Air 04/20/17 04/20/17 04/20/17 04/20/17 08:13 10:41 10:56 13:33 Temp 97.8 97.8 Pulse 105 102 Resp 18 16 16 B/P (MAP) 144/97 138/98 (111) Pulse Ox 96 O2 Delivery Room Air Room Air Room Air 04/20/17 04/20/17 16:26 16:56 Resp 16 16 O2 Delivery Room Air Room Air Intake and Output 04/19/17 04/19/17 04/20/17 15:00 23:00 07:00 Intake Total 700 ml 1100 ml 1935.74 ml Output Total 250 ml 375 ml Balance 450 ml 1100 ml 1560.74 ml PUSHPA ARAMBULA MD Apr 20, 2017 18:18
[2017-04-20] MEDS: NICOTINE POLACRILEX 2MG GUM PACKAGE of 12. BC PRN (18:30)
[2017-04-20 19:00] VITALS: BP 140/99
[2017-04-20 23:00] VITALS: BP 128/82
[2017-04-21] MEDS: HYDROmorphone 2 MG/ML VIAL IV PRN ×3 (01:14→07:55)
[2017-04-21 03:00] VITALS: BP 130/89
[2017-04-21 06:05] LABS: BASO % 0 % (0-3); EOS % 1 % (0-3); HEMATOCRIT 36.3 % (39.0-53.0); HEMOGLOBIN 12.6 g/dL (13.0-17.5); LYMPH # 0.7 x10^3/uL (1.0-4.8); LYMPH % 9 % (24-48); MEAN CORPUSCULAR HEMOGLOBIN 31 pg (25-35); MEAN CORPUSCULAR HGB CONC 35 g/dL (31-37); MEAN CORPUSCULAR VOLUME 90 fL (79-100); MONO % 14 % (0-9); NEUT % 76 % (31-73); PLATELET COUNT 124 x10^3/uL (140-400); RED BLOOD COUNT 4.02 x10^6/uL (4.30-5.70); RED CELL DISTRIBUTION WIDTH 13.5 % (11.5-14.5); WHITE BLOOD COUNT 7.3 x10^3/uL (4.0-11.0)
[2017-04-21 07:00] VITALS: BP 125/85
[2017-04-21] MEDS: PANTOPRAZOLE 40 MG TABLET.DR. PO SCH (07:54)
[2017-04-21] MEDS: NICOTINE 7MG PATCH. TD PRN (08:05)
[2017-04-21] MEDS: METOPROLOL TART IMMED RELEASE 25 MG TABLET. PO SCH ×2 (08:08→20:21)
[2017-04-21 11:00] VITALS: BP 128/88
[2017-04-21] MEDS: oxyCODONE IR 5 MG TABLET PO PRN ×3 (12:44→22:15)
[2017-04-21] MEDS: NICOTINE POLACRILEX 2MG GUM PACKAGE of 12. BC PRN (12:46)
--- NOTE | 2017-04-21 13:27 | PDOC ---
PROGRESS NOTES Chief Complaint Chief Complaint alcoholic pancreatitis, EtOH abuse hx nausea, abd pain leukocytosis History of Present Illness History of Present Illness pain getting better, poor PO intake, try to advance to full liquid diet, req. IV fliud still getting IV pain meds, encourage PO, oxy 10 prn in AM, plan to DC if able to karen full liquids Vitals Vitals Vital Signs Date Time Temp Pulse Resp B/P (MAP) Pulse Ox O2 Delivery O2 Flow Rate FiO2 04/21/17 12:44 16 Room Air 04/21/17 11:00 98.6 96 128/88 (101) 99 98.6 Physical Exam General: Alert, Oriented X3, Cooperative, No acute distress Heart: Normal S1, Gallops Lungs: Wheezing Abdomen: Soft Extremities: No cyanosis, No edema Skin: No breakdown, No significant lesion Labs LABS Laboratory Tests Test 04/21/17 05:00 White Blood Count 7.3 x10^3/uL (4.0-11.0) Red Blood Count 4.02 x10^6/uL (4.30-5.70) Hemoglobin 12.6 g/dL (13.0-17.5) Hematocrit 36.3 % (39.0-53.0) Mean Corpuscular Volume 90 fL (79-100) Mean Corpuscular Hemoglobin 31 pg (25-35) Mean Corpuscular Hemoglobin Concent 35 g/dL (31-37) Red Cell Distribution Width 13.5 % (11.5-14.5) Platelet Count 124 x10^3/uL (140-400) Neutrophils (%) (Auto) 76 % (31-73) Lymphocytes (%) (Auto) 9 % (24-48) Monocytes (%) (Auto) 14 % (0-9) Eosinophils (%) (Auto) 1 % (0-3) Basophils (%) (Auto) 0 % (0-3) Neutrophils # (Auto) 5.5 x10^3uL (1.8-7.7) Lymphocytes # (Auto) 0.7 x10^3/uL (1.0-4.8) Monocytes # (Auto) 1.0 x10^3/uL (0.0-1.1) Eosinophils # (Auto) 0.1 x10^3/uL (0.0-0.7) Basophils # (Auto) 0.0 x10^3/uL (0.0-0.2) Assessment and Plan Assessmemt and Plan Problems Medical Problems: (1) Acute pancreatitis Status: Acute (2) ETOH abuse Status: Acute Problems: Comment Review of Relevant I have reviewed the following items zain (where applicable) has been applied. Labs Laboratory Tests Test 04/21/17 05:00 White Blood Count 7.3 x10^3/uL (4.0-11.0) Red Blood Count 4.02 x10^6/uL (4.30-5.70) Hemoglobin 12.6 g/dL (13.0-17.5) Hematocrit 36.3 % (39.0-53.0) Mean Corpuscular Volume 90 fL (79-100) Mean Corpuscular Hemoglobin 31 pg (25-35) Mean Corpuscular Hemoglobin Concent 35 g/dL (31-37) Red Cell Distribution Width 13.5 % (11.5-14.5) Platelet Count 124 x10^3/uL (140-400) Neutrophils (%) (Auto) 76 % (31-73) Lymphocytes (%) (Auto) 9 % (24-48) Monocytes (%) (Auto) 14 % (0-9) Eosinophils (%) (Auto) 1 % (0-3) Basophils (%) (Auto) 0 % (0-3) Neutrophils # (Auto) 5.5 x10^3uL (1.8-7.7) Lymphocytes # (Auto) 0.7 x10^3/uL (1.0-4.8) Monocytes # (Auto) 1.0 x10^3/uL (0.0-1.1) Eosinophils # (Auto) 0.1 x10^3/uL (0.0-0.7) Basophils # (Auto) 0.0 x10^3/uL (0.0-0.2) Laboratory Tests Test 04/21/17 05:00 White Blood Count 7.3 x10^3/uL (4.0-11.0) Red Blood Count 4.02 x10^6/uL (4.30-5.70) Hemoglobin 12.6 g/dL (13.0-17.5) Hematocrit 36.3 % (39.0-53.0) Mean Corpuscular Volume 90 fL (79-100) Mean Corpuscular Hemoglobin 31 pg (25-35) Mean Corpuscular Hemoglobin Concent 35 g/dL (31-37) Red Cell Distribution Width 13.5 % (11.5-14.5) Platelet Count 124 x10^3/uL (140-400) Neutrophils (%) (Auto) 76 % (31-73) Lymphocytes (%) (Auto) 9 % (24-48) Monocytes (%) (Auto) 14 % (0-9) Eosinophils (%) (Auto) 1 % (0-3) Basophils (%) (Auto) 0 % (0-3) Neutrophils # (Auto) 5.5 x10^3uL (1.8-7.7) Lymphocytes # (Auto) 0.7 x10^3/uL (1.0-4.8) Monocytes # (Auto) 1.0 x10^3/uL (0.0-1.1) Eosinophils # (Auto) 0.1 x10^3/uL (0.0-0.7) Basophils # (Auto) 0.0 x10^3/uL (0.0-0.2) Medications Current Medications Sodium Chloride 1,000 ml @ 1,000 mls/hr 1X ONCE IV Last administered on 04/17 13:42; Start 04/17/17 at 13:30; Stop 04/17/17 at 14:29; Status DC Ondansetron HCl (Zofran) 8 mg 1X ONCE IV Last administered on 04/17/17 13:42 ; Start 04/17/17 at 13:30; Stop 04/17/17 at 13:31; Status DC Hydromorphone HCl (Dilaudid) 1 mg 1X ONCE IV Last administered on 04/17/17 13:44; Start 04/17/17 at 13:30; Stop 04/17/17 at 13:31; Status DC Famotidine (Pepcid Vial) 20 mg 1X ONCE IVP Last administered on 04/17/17 13: 45; Start 04/17/17 at 13:30; Stop 04/17/17 at 13:31; Status DC Iohexol (Omnipaque 300 Mg/ml) 75 ml 1X ONCE IV Last administered on 13:30; Start 04/17/17 at 13:30; Stop 04/17/17 at 13:31; Status DC Info (Do NOT chart on this entry -- for MONITORING) 1 each PRN DAILY PRN MC SEE COMMENTS; Start 04/17/17 at 13:30; Stop 04/19/17 at 13:29; Status DC Hydromorphone HCl (Dilaudid) 2 mg 1X ONCE IV Last administered on 04/17/17 15:44; Start 04/17/17 at 15:45; Stop 04/17/17 at 15:46; Status DC Ondansetron HCl (Zofran) 4 mg PRN Q8HRS PRN IV NAUSEA/VOMITING; Start at 16:15; Stop 04/17/17 at 21:46; Status DC Sodium Chloride 1,000 ml @ 125 mls/hr 1X ONCE IV Last administered on 17:59; Start 04/17/17 at 16:15; Stop 04/18/17 at 00:14; Status DC Hydromorphone HCl (Dilaudid) 1 mg Q3HRS PRN IV pain Last administered on 18:05; Start 04/17/17 at 16:15; Stop 04/17/17 at 20:58; Status DC Hydromorphone HCl (Dilaudid) 1 mg PRN Q2HR PRN IV pain Last administered on 07:55; Start 04/17/17 at 21:00 Ondansetron HCl (Zofran) 4 mg PRN Q6HRS PRN IV NAUSEA/VOMITING; Start at 21:45 Metoprolol Succinate (Toprol Xl) 25 mg BID PO ; Start 04/17/17 at 23:45; Status Cancel Metoprolol Tartrate (Lopressor) 25 mg BID PO ; Start 04/18/17 at 23:55; Stop 04/18/17 at 23:55; Status DC Metoprolol Tartrate (Lopressor Vial) 5 mg PRN Q6HRS PRN IVP HYPERTENSION, SEE COMMENTS Last administered on 04/19/17 03:38; Start 04/18/17 at 00:00 Metoprolol Tartrate (Lopressor Vial) 5 mg Q6HRS PRN IVP HYPERTENSION, SEE COMMENTS; Start 04/18/17 at 00:15; Status UNV Pantoprazole Sodium (Protonix) 40 mg DAILYAC PO Last administered on 04/21/17 07:54; Start 04/18/17 at 11:30 Potassium Chloride/Sodium Chloride 1,000 ml @ 100 mls/hr Q10H IV Last administered on 04/21/17 08:03; Start 04/18/17 at 14:15 Lorazepam (Ativan) 2 mg PRN Q4HRS PRN IV ANXIETY / AGITATION Last administered on 04/21/17 06:06; Start 04/18/17 at 14:45 Lorazepam (Ativan) 1 mg 1X ONCE PO Last administered on 04/19/17 10:31; Start 04/19/17 at 10:30; Stop 04/19/17 at 10:31; Status DC Metoprolol Tartrate (Lopressor) 25 mg 1X ONCE PO Last administered on 10:31; Start 04/19/17 at 10:30; Stop 04/19/17 at 10:31; Status DC Metoprolol Tartrate (Lopressor) 25 mg BID PO Last administered on 04/21/17 08: 08; Start 04/19/17 at 21:00 Nicotine (Nicoderm Cq 7mg) 1 patch PRN DAILY PRN TD SMOKING CESSATION Last administered on 04/21/17 08:05; Start 04/19/17 at 22:00 Nicotine Polacrilex (Nicorette Gum) 1 each PRN Q1HR PRN BC SMOKING CESSATION Last administered on 04/21/17 12:46; Start 04/20/17 at 17:45 Oxycodone HCl (Roxicodone) 10 mg PRN Q4HRS PRN PO PAIN Last administered on 12:44; Start 04/21/17 at 11:30 Vitals/I & O Vital Sign - Last 24 Hours 04/20/17 04/20/17 04/20/17 04/20/17 13:33 16:26 18:31 19:00 Temp 98.1 98.1 Pulse 105 Resp 16 16 16 20 B/P (MAP) 140/99 (113) Pulse Ox 95 O2 Delivery Room Air Room Air Room Air 04/20/17 04/20/17 04/20/17 04/20/17 20:52 20:53 23:00 23:02 Temp 97.8 97.8 Pulse 105 91 Resp 18 17 B/P (MAP) 140/99 128/82 (97) Pulse Ox 95 94 95 O2 Delivery Room Air Room Air 04/21/17 04/21/17 04/21/17 04/21/17 01:14 03:00 04:13 04:51 Temp 98.1 98.1 Pulse 94 Resp 17 B/P (MAP) 130/89 (103) Pulse Ox 95 98 95 95 O2 Delivery Room Air Room Air 04/21/17 04/21/17 04/21/17 04/21/17 07:00 07:55 08:00 08:08 Temp 98.0 98.0 Pulse 85 85 Resp 22 16 B/P (MAP) 125/85 (98) 128/85 Pulse Ox 98 O2 Delivery Room Air Room Air Room Air 04/21/17 04/21/17 04/21/17 08:25 11:00 12:44 Temp 98.6 98.6 Pulse 96 Resp 16 24 16 B/P (MAP) 128/88 (101) Pulse Ox 99 O2 Delivery Room Air Room Air Room Air Intake and Output 04/20/17 04/20/17 04/21/17 15:00 23:00 07:00 Intake Total 720 ml 1230 ml Output Total 850 ml Balance 720 ml 1230 ml -850 ml PUSHPA ARAMBULA MD Apr 21, 2017 13:27
--- NOTE | 2017-04-21 14:45 | PDOC ---
Subjective: Subjective: Wants to go home. Some pain after liquids. Tolerating PO meds somewhat Objective: Vital Signs: Vital Signs Date Time Temp Pulse Resp B/P (MAP) Pulse Ox O2 Delivery O2 Flow Rate FiO2 04/21/17 12:44 16 Room Air 04/21/17 11:00 98.6 96 128/88 (101) 99 98.6 Labs: Laboratory Tests Test 04/21/17 05:00 White Blood Count 7.3 x10^3/uL (4.0-11.0) Red Blood Count 4.02 x10^6/uL (4.30-5.70) Hemoglobin 12.6 g/dL (13.0-17.5) Hematocrit 36.3 % (39.0-53.0) Mean Corpuscular Volume 90 fL (79-100) Mean Corpuscular Hemoglobin 31 pg (25-35) Mean Corpuscular Hemoglobin Concent 35 g/dL (31-37) Red Cell Distribution Width 13.5 % (11.5-14.5) Platelet Count 124 x10^3/uL (140-400) Neutrophils (%) (Auto) 76 % (31-73) Lymphocytes (%) (Auto) 9 % (24-48) Monocytes (%) (Auto) 14 % (0-9) Eosinophils (%) (Auto) 1 % (0-3) Basophils (%) (Auto) 0 % (0-3) Neutrophils # (Auto) 5.5 x10^3uL (1.8-7.7) Lymphocytes # (Auto) 0.7 x10^3/uL (1.0-4.8) Monocytes # (Auto) 1.0 x10^3/uL (0.0-1.1) Eosinophils # (Auto) 0.1 x10^3/uL (0.0-0.7) Basophils # (Auto) 0.0 x10^3/uL (0.0-0.2) Physical Exam: Physical Exam: GEN: NAD HEENT: OP clear CV: S1S2 without murmurs, rubs, or gallops RESP: CTAB without wheezing, rhonchi, or crackles ABD: NABS, SNT/ND EXT: No edema NEURO: AAO x 3 Assessment & Plan: Assessment : 1) Pancreatitis Plan: Leukocytosis resolved Can d/c if tolerating PO meds and PO Advised EtOH cessation Problems: BULMARO TEIXEIRA MD Apr 21, 2017 14:45
[2017-04-21 15:00] VITALS: BP 140/84
[2017-04-21 19:00] VITALS: BP 141/93
[2017-04-21 23:00] VITALS: BP 137/89
[2017-04-22 03:00] VITALS: BP 130/80
[2017-04-22] MEDS: oxyCODONE IR 5 MG TABLET PO PRN ×5 (03:08→23:42)
[2017-04-22 05:34] LABS: BASO % 0 % (0-3); EOS % 2 % (0-3); HEMATOCRIT 37.6 % (39.0-53.0); LYMPH # 0.8 x10^3/uL (1.0-4.8); LYMPH % 12 % (24-48); MEAN CORPUSCULAR HEMOGLOBIN 31 pg (25-35); MEAN CORPUSCULAR HGB CONC 35 g/dL (31-37); MEAN CORPUSCULAR VOLUME 90 fL (79-100); MONO % 17 % (0-9); NEUT % 69 % (31-73); PLATELET COUNT 158 x10^3/uL (140-400); RED BLOOD COUNT 4.16 x10^6/uL (4.30-5.70); RED CELL DISTRIBUTION WIDTH 13.7 % (11.5-14.5); WHITE BLOOD COUNT 6.7 x10^3/uL (4.0-11.0)
[2017-04-22 06:13] LABS: ALBUMIN 2.9 g/dL (3.4-5.0); ALBUMIN/GLOBULIN RATIO 0.6 (1.0-1.7); CALCIUM 10.1 mg/dL (8.5-10.1); CREATININE 0.9 mg/dL (0.7-1.3); GFR 103.7; TOTAL BILIRUBIN 0.7 mg/dL (0.2-1.0); TOTAL PROTEIN 7.6 g/dL (6.4-8.2)
[2017-04-22 06:19] LABS: POTASSIUM 4.9 mmol/L (3.5-5.1)
[2017-04-22 07:16] VITALS: BP 124/90
[2017-04-22] MEDS: PANTOPRAZOLE 40 MG TABLET.DR. PO SCH (08:27)
[2017-04-22] MEDS: METOPROLOL TART IMMED RELEASE 25 MG TABLET. PO SCH ×2 (08:27→20:53)
[2017-04-22] MEDS: NICOTINE 7MG PATCH. TD PRN (08:33)
[2017-04-22 10:36] VITALS: BP 122/80
--- NOTE | 2017-04-22 10:39 | PDOC ---
Subjective: Subjective: Tells me tolerating GI soft w/ ongoing pain - says no better. Asks for Ativan. Objective: Objective: Reviewed notes - yesterday discussed possible DC today. Per RN - not eating much (estimates 50%), stops because he has LUQ pain. Vital Signs: Vital Signs Date Time Temp Pulse Resp B/P (MAP) Pulse Ox O2 Delivery O2 Flow Rate FiO2 04/22/17 08:31 18 Room Air 04/22/17 08:27 84 124/90 04/22/17 07:16 98.1 96 98.1 PE: GEN: NAD, was asleep LUNGS: clear HEART: RRR ABD: BS+ (quiet), epigastric to LUQ discomfort NEURO/PSYCH: A & O 3 A/P: Recurrent pancreatitis -alcohol abuse -lipase now WNL, Alk Phos 139 -CT 04/17 w/ diffusely thickened pancreas w/ fluid collection along the pancreatic tail Leukocytosis, tachycardia - resolved -- Defer request for Ativan to primary. Labs/vital improved. If no plans to DC today, consider repeating CT A/P w/ ongoing post-prandial pain. NHUNG CHURCHILL Apr 22, 2017 10:39
[2017-04-22] MEDS: NICOTINE POLACRILEX 2MG GUM PACKAGE of 12. BC PRN ×2 (12:20→18:15)
--- NOTE | 2017-04-22 12:27 | PDOC ---
PROGRESS NOTES Chief Complaint Chief Complaint acute pancreatitis, recurrent alcoholic pancreatitis, EtOH abuse hx nausea, abd pain leukocytosis History of Present Illness History of Present Illness pain getting better, poor PO intake, try to advance to full liquid diet, req. IV fluid again today, not much urine output try to limit use of IV pain meds, encourage PO, oxy 10 prn may be able to DC if able to karen full liquids Vitals Vitals Vital Signs Date Time Temp Pulse Resp B/P (MAP) Pulse Ox O2 Delivery O2 Flow Rate FiO2 04/22/17 10:36 97.8 83 18 122/80 (94) 95 Room Air 97.8 Physical Exam General: Alert, Oriented X3, Cooperative, No acute distress Heart: Normal S1, Gallops Lungs: Wheezing Abdomen: Soft Extremities: No cyanosis, No edema Skin: No breakdown, No significant lesion Labs LABS Laboratory Tests Test 04/22/17 04:50 White Blood Count 6.7 x10^3/uL (4.0-11.0) Red Blood Count 4.16 x10^6/uL (4.30-5.70) Hemoglobin 13.0 g/dL (13.0-17.5) Hematocrit 37.6 % (39.0-53.0) Mean Corpuscular Volume 90 fL (79-100) Mean Corpuscular Hemoglobin 31 pg (25-35) Mean Corpuscular Hemoglobin Concent 35 g/dL (31-37) Red Cell Distribution Width 13.7 % (11.5-14.5) Platelet Count 158 x10^3/uL (140-400) Neutrophils (%) (Auto) 69 % (31-73) Lymphocytes (%) (Auto) 12 % (24-48) Monocytes (%) (Auto) 17 % (0-9) Eosinophils (%) (Auto) 2 % (0-3) Basophils (%) (Auto) 0 % (0-3) Neutrophils # (Auto) 4.6 x10^3uL (1.8-7.7) Lymphocytes # (Auto) 0.8 x10^3/uL (1.0-4.8) Monocytes # (Auto) 1.1 x10^3/uL (0.0-1.1) Eosinophils # (Auto) 0.1 x10^3/uL (0.0-0.7) Basophils # (Auto) 0.0 x10^3/uL (0.0-0.2) Sodium Level 140 mmol/L (136-145) Potassium Level 4.9 mmol/L (3.5-5.1) Chloride Level 102 mmol/L (98-107) Carbon Dioxide Level 32 mmol/L (21-32) Anion Gap 6 (6-14) Blood Urea Nitrogen 7 mg/dL (8-26) Creatinine 0.9 mg/dL (0.7-1.3) Estimated GFR (Cockcroft-Gault) 103.7 BUN/Creatinine Ratio 8 (6-20) Glucose Level 100 mg/dL (70-99) Calcium Level 10.1 mg/dL (8.5-10.1) Total Bilirubin 0.7 mg/dL (0.2-1.0) Aspartate Amino Transf (AST/SGOT) 23 U/L (15-37) Alanine Aminotransferase (ALT/SGPT) 15 U/L (16-63) Alkaline Phosphatase 139 U/L (46-116) Total Protein 7.6 g/dL (6.4-8.2) Albumin 2.9 g/dL (3.4-5.0) Albumin/Globulin Ratio 0.6 (1.0-1.7) Lipase 287 U/L (73-393) Assessment and Plan Assessmemt and Plan lipase improved pain persists, try to advance diet as able Problems Medical Problems: (1) Acute pancreatitis Status: Acute (2) ETOH abuse Status: Acute Problems: Comment Review of Relevant I have reviewed the following items zain (where applicable) has been applied. Labs Laboratory Tests Test 04/21/17 05:00 04/22/17 04:50 White Blood Count 7.3 x10^3/uL (4.0-11.0) 6.7 x10^3/uL (4.0-11.0) Red Blood Count 4.02 x10^6/uL (4.30-5.70) 4.16 x10^6/uL (4.30-5.70) Hemoglobin 12.6 g/dL (13.0-17.5) 13.0 g/dL (13.0-17.5) Hematocrit 36.3 % (39.0-53.0) 37.6 % (39.0-53.0) Mean Corpuscular Volume 90 fL (79-100) 90 fL (79-100) Mean Corpuscular Hemoglobin 31 pg (25-35) 31 pg (25-35) Mean Corpuscular Hemoglobin Concent 35 g/dL (31-37) 35 g/dL (31-37) Red Cell Distribution Width 13.5 % (11.5-14.5) 13.7 % (11.5-14.5) Platelet Count 124 x10^3/uL (140-400) 158 x10^3/uL (140-400) Neutrophils (%) (Auto) 76 % (31-73) 69 % (31-73) Lymphocytes (%) (Auto) 9 % (24-48) 12 % (24-48) Monocytes (%) (Auto) 14 % (0-9) 17 % (0-9) Eosinophils (%) (Auto) 1 % (0-3) 2 % (0-3) Basophils (%) (Auto) 0 % (0-3) 0 % (0-3) Neutrophils # (Auto) 5.5 x10^3uL (1.8-7.7) 4.6 x10^3uL (1.8-7.7) Lymphocytes # (Auto) 0.7 x10^3/uL (1.0-4.8) 0.8 x10^3/uL (1.0-4.8) Monocytes # (Auto) 1.0 x10^3/uL (0.0-1.1) 1.1 x10^3/uL (0.0-1.1) Eosinophils # (Auto) 0.1 x10^3/uL (0.0-0.7) 0.1 x10^3/uL (0.0-0.7) Basophils # (Auto) 0.0 x10^3/uL (0.0-0.2) 0.0 x10^3/uL (0.0-0.2) Sodium Level 140 mmol/L (136-145) Potassium Level 4.9 mmol/L (3.5-5.1) Chloride Level 102 mmol/L (98-107) Carbon Dioxide Level 32 mmol/L (21-32) Anion Gap 6 (6-14) Blood Urea Nitrogen 7 mg/dL (8-26) Creatinine 0.9 mg/dL (0.7-1.3) Estimated GFR (Cockcroft-Gault) 103.7 BUN/Creatinine Ratio 8 (6-20) Glucose Level 100 mg/dL (70-99) Calcium Level 10.1 mg/dL (8.5-10.1) Total Bilirubin 0.7 mg/dL (0.2-1.0) Aspartate Amino Transf (AST/SGOT) 23 U/L (15-37) Alanine Aminotransferase (ALT/SGPT) 15 U/L (16-63) Alkaline Phosphatase 139 U/L (46-116) Total Protein 7.6 g/dL (6.4-8.2) Albumin 2.9 g/dL (3.4-5.0) Albumin/Globulin Ratio 0.6 (1.0-1.7) Lipase 287 U/L (73-393) Laboratory Tests Test 04/22/17 04:50 White Blood Count 6.7 x10^3/uL (4.0-11.0) Red Blood Count 4.16 x10^6/uL (4.30-5.70) Hemoglobin 13.0 g/dL (13.0-17.5) Hematocrit 37.6 % (39.0-53.0) Mean Corpuscular Volume 90 fL (79-100) Mean Corpuscular Hemoglobin 31 pg (25-35) Mean Corpuscular Hemoglobin Concent 35 g/dL (31-37) Red Cell Distribution Width 13.7 % (11.5-14.5) Platelet Count 158 x10^3/uL (140-400) Neutrophils (%) (Auto) 69 % (31-73) Lymphocytes (%) (Auto) 12 % (24-48) Monocytes (%) (Auto) 17 % (0-9) Eosinophils (%) (Auto) 2 % (0-3) Basophils (%) (Auto) 0 % (0-3) Neutrophils # (Auto) 4.6 x10^3uL (1.8-7.7) Lymphocytes # (Auto) 0.8 x10^3/uL (1.0-4.8) Monocytes # (Auto) 1.1 x10^3/uL (0.0-1.1) Eosinophils # (Auto) 0.1 x10^3/uL (0.0-0.7) Basophils # (Auto) 0.0 x10^3/uL (0.0-0.2) Sodium Level 140 mmol/L (136-145) Potassium Level 4.9 mmol/L (3.5-5.1) Chloride Level 102 mmol/L (98-107) Carbon Dioxide Level 32 mmol/L (21-32) Anion Gap 6 (6-14) Blood Urea Nitrogen 7 mg/dL (8-26) Creatinine 0.9 mg/dL (0.7-1.3) Estimated GFR (Cockcroft-Gault) 103.7 BUN/Creatinine Ratio 8 (6-20) Glucose Level 100 mg/dL (70-99) Calcium Level 10.1 mg/dL (8.5-10.1) Total Bilirubin 0.7 mg/dL (0.2-1.0) Aspartate Amino Transf (AST/SGOT) 23 U/L (15-37) Alanine Aminotransferase (ALT/SGPT) 15 U/L (16-63) Alkaline Phosphatase 139 U/L (46-116) Total Protein 7.6 g/dL (6.4-8.2) Albumin 2.9 g/dL (3.4-5.0) Albumin/Globulin Ratio 0.6 (1.0-1.7) Lipase 287 U/L (73-393) Medications Current Medications Sodium Chloride 1,000 ml @ 1,000 mls/hr 1X ONCE IV Last administered on 04/17 13:42; Start 04/17/17 at 13:30; Stop 04/17/17 at 14:29; Status DC Ondansetron HCl (Zofran) 8 mg 1X ONCE IV Last administered on 04/17/17 13:42 ; Start 04/17/17 at 13:30; Stop 04/17/17 at 13:31; Status DC Hydromorphone HCl (Dilaudid) 1 mg 1X ONCE IV Last administered on 04/17/17 13:44; Start 04/17/17 at 13:30; Stop 04/17/17 at 13:31; Status DC Famotidine (Pepcid Vial) 20 mg 1X ONCE IVP Last administered on 04/17/17 13: 45; Start 04/17/17 at 13:30; Stop 04/17/17 at 13:31; Status DC Iohexol (Omnipaque 300 Mg/ml) 75 ml 1X ONCE IV Last administered on 13:30; Start 04/17/17 at 13:30; Stop 04/17/17 at 13:31; Status DC Info (Do NOT chart on this entry -- for MONITORING) 1 each PRN DAILY PRN MC SEE COMMENTS; Start 04/17/17 at 13:30; Stop 04/19/17 at 13:29; Status DC Hydromorphone HCl (Dilaudid) 2 mg 1X ONCE IV Last administered on 04/17/17 15:44; Start 04/17/17 at 15:45; Stop 04/17/17 at 15:46; Status DC Ondansetron HCl (Zofran) 4 mg PRN Q8HRS PRN IV NAUSEA/VOMITING; Start at 16:15; Stop 04/17/17 at 21:46; Status DC Sodium Chloride 1,000 ml @ 125 mls/hr 1X ONCE IV Last administered on 17:59; Start 04/17/17 at 16:15; Stop 04/18/17 at 00:14; Status DC Hydromorphone HCl (Dilaudid) 1 mg Q3HRS PRN IV pain Last administered on 18:05; Start 04/17/17 at 16:15; Stop 04/17/17 at 20:58; Status DC Hydromorphone HCl (Dilaudid) 1 mg PRN Q2HR PRN IV pain Last administered on 07:55; Start 04/17/17 at 21:00 Ondansetron HCl (Zofran) 4 mg PRN Q6HRS PRN IV NAUSEA/VOMITING; Start at 21:45 Metoprolol Succinate (Toprol Xl) 25 mg BID PO ; Start 04/17/17 at 23:45; Status Cancel Metoprolol Tartrate (Lopressor) 25 mg BID PO ; Start 04/18/17 at 23:55; Stop 04/18/17 at 23:55; Status DC Metoprolol Tartrate (Lopressor Vial) 5 mg PRN Q6HRS PRN IVP HYPERTENSION, SEE COMMENTS Last administered on 04/19/17 03:38; Start 04/18/17 at 00:00 Metoprolol Tartrate (Lopressor Vial) 5 mg Q6HRS PRN IVP HYPERTENSION, SEE COMMENTS; Start 04/18/17 at 00:15; Status UNV Pantoprazole Sodium (Protonix) 40 mg DAILYAC PO Last administered on 04/22/17 08:27; Start 04/18/17 at 11:30 Potassium Chloride/Sodium Chloride 1,000 ml @ 100 mls/hr Q10H IV Last administered on 04/21/17 08:03; Start 04/18/17 at 14:15; Stop 04/21/17 at 13: 28; Status DC Lorazepam (Ativan) 2 mg PRN Q4HRS PRN IV ANXIETY / AGITATION Last administered on 04/22/17 11:17; Start 04/18/17 at 14:45 Lorazepam (Ativan) 1 mg 1X ONCE PO Last administered on 04/19/17 10:31; Start 04/19/17 at 10:30; Stop 04/19/17 at 10:31; Status DC Metoprolol Tartrate (Lopressor) 25 mg 1X ONCE PO Last administered on 10:31; Start 04/19/17 at 10:30; Stop 04/19/17 at 10:31; Status DC Metoprolol Tartrate (Lopressor) 25 mg BID PO Last administered on 04/22/17 08: 27; Start 04/19/17 at 21:00 Nicotine (Nicoderm Cq 7mg) 1 patch PRN DAILY PRN TD SMOKING CESSATION Last administered on 04/22/17 08:33; Start 04/19/17 at 22:00 Nicotine Polacrilex (Nicorette Gum) 1 each PRN Q1HR PRN BC SMOKING CESSATION Last administered on 04/22/17 12:20; Start 04/20/17 at 17:45 Oxycodone HCl (Roxicodone) 10 mg PRN Q4HRS PRN PO PAIN Last administered on 08:31; Start 04/21/17 at 11:30 Vitals/I & O Vital Sign - Last 24 Hours 04/21/17 04/21/17 04/21/17 04/21/17 12:44 15:00 17:36 19:00 Temp 98.0 96.3 98.0 96.3 Pulse 88 94 Resp 16 22 16 18 B/P (MAP) 140/84 (102) 141/93 (109) Pulse Ox 99 95 O2 Delivery Room Air Room Air Room Air 04/21/17 04/21/17 04/21/17 04/22/17 20:21 22:15 23:00 03:00 Temp 100.0 98.0 100.0 98.0 Pulse 94 90 94 Resp 16 18 18 B/P (MAP) 141/93 137/89 (105) 130/80 (97) Pulse Ox 95 99 98 O2 Delivery Room Air Room Air Room Air 04/22/17 04/22/17 04/22/17 04/22/17 03:08 04:37 07:16 08:00 Temp 98.1 98.1 Pulse 84 Resp 15 18 B/P (MAP) 124/90 (101) Pulse Ox 99 99 96 O2 Delivery Room Air Room Air Room Air 04/22/17 04/22/17 04/22/17 04/22/17 08:27 08:31 09:31 10:36 Temp 97.8 97.8 Pulse 84 83 Resp 18 18 18 B/P (MAP) 124/90 122/80 (94) Pulse Ox 95 O2 Delivery Room Air Room Air Room Air Intake and Output 04/21/17 04/21/17 04/22/17 15:00 23:00 07:00 Intake Total 780 ml 1180 ml 1000 ml Output Total 600 ml Balance 780 ml 580 ml 1000 ml PUSHPA ARAMBULA MD Apr 22, 2017 12:27
[2017-04-22] MEDS ORDERED: IV NORMAL SALINE 1000ML BAG 1,000 ML IV ONE (12:30)
[2017-04-22 14:45] VITALS: BP 131/83
[2017-04-22 19:00] VITALS: BP 138/90
[2017-04-22 22:54] VITALS: BP 137/100
[2017-04-23] MEDS: NICOTINE POLACRILEX 2MG GUM PACKAGE of 12. BC PRN ×2 (00:30→08:15)
[2017-04-23 02:33] VITALS: BP 138/99
[2017-04-23] MEDS: oxyCODONE IR 5 MG TABLET PO PRN ×2 (03:36→08:14)
[2017-04-23 05:11] LABS: BASO % 0 % (0-3); EOS % 1 % (0-3); HEMATOCRIT 39.2 % (39.0-53.0); HEMOGLOBIN 13.3 g/dL (13.0-17.5); LYMPH # 0.8 x10^3/uL (1.0-4.8); LYMPH % 14 % (24-48); MEAN CORPUSCULAR HEMOGLOBIN 31 pg (25-35); MEAN CORPUSCULAR HGB CONC 34 g/dL (31-37); MEAN CORPUSCULAR VOLUME 91 fL (79-100); MONO % 15 % (0-9); NEUT % 70 % (31-73); PLATELET COUNT 192 x10^3/uL (140-400); RED CELL DISTRIBUTION WIDTH 13.6 % (11.5-14.5); WHITE BLOOD COUNT 6.2 x10^3/uL (4.0-11.0)
[2017-04-23 06:25] LABS: ALBUMIN/GLOBULIN RATIO 0.6 (1.0-1.7); CALCIUM 9.3 mg/dL (8.5-10.1); CREATININE 0.7 mg/dL (0.7-1.3); GFR 138.6; POTASSIUM 3.9 mmol/L (3.5-5.1); TOTAL BILIRUBIN 0.6 mg/dL (0.2-1.0); TOTAL PROTEIN 7.7 g/dL (6.4-8.2)
[2017-04-23 07:24] VITALS: BP 131/93
[2017-04-23] MEDS: METOPROLOL TART IMMED RELEASE 25 MG TABLET. PO SCH (08:15)
[2017-04-23] MEDS: PANTOPRAZOLE 40 MG TABLET.DR. PO SCH (08:15)
[2017-04-23] MEDS ORDERED: OXYC5TAB95 PO (09:57)
--- NOTE | 2017-04-23 10:01 | DISCH ---
DISCHARGE INSTRUCTIONS Condition on Discharge Condition on Discharge: Stable Activity After Discharge Activity Instructions for Disc: No restrictions Diet after Discharge Diet after Discharge: GI Soft Contacting the DR. after DC Call your doctor for: If your condition worsens (Please avoid drinking alcohol ) Follow-Up Follow up with: Follow-up with PCP in 1 week LISSET NAQVI MD Apr 23, 2017 10:01
[2017-04-23 10:32] VITALS: BP 120/81
--- NOTE | 2017-04-23 16:34 | PDOC3 ---
Discharge Summary [facility] Date of Admission: Apr 17, 2017 Discharge Date: Apr 23, 2017 Admitting Diagnosis Acute Pancreatitis Alcohol Abuse Problems: (1) Acute pancreatitis (2) ETOH abuse Final Diagnosis Problems Medical Problems: (1) Acute pancreatitis Status: Acute (2) ETOH abuse Status: Acute CONSULTS GI Procedures None Brief Hospital Course Mr. Foreman is a 26 year old male that complained of epigastric pain after he went on a drinking binge with his friend. Patient was found to have lipase > 2000 and was treated for acute pancreatitis. Patient initially was started on IV pain medications and IV fluids and GI was consulted as well. Patient eventually was able to tolerate food and his lipase was within normal and he was medically stable for discharge Problems: (1) Acute pancreatitis (2) ETOH abuse Disposition Home CONDITION AT DISCHARGE: Stable Diet GI soft Scheduled PRN Oxycodone Hcl (Oxycodone Hcl), 5 MG PO PRN Q8HRS PRN for PAIN Follow Up Follow-up with PCP in 1 week Patient Instructions Alcohol Cessation Problem Qualifiers (1) Acute pancreatitis: Pancreatitis type: alcohol induced Acute pancreatitis complication: unspecified Qualified Codes: K85.20 - Alcohol induced acute pancreatitis without necrosis or infection LISSET NAQVI MD Apr 23, 2017 16:34
== END 2017-04-23 11:06 | disposition home or self-care (01) | DRG 440 ==
LOC: ER 12:21 → ED HOLD 16:05 → 5 SOUTH 19:15
PROVIDERS: ADMIT Internal Medicine Hematology & Oncology; ATTEND Internal Medicine Hematology & Oncology
DX: K85.20 Alcohol induced acute pancreatitis without necrosis or infection (principal); D69.6 Thrombocytopenia, unspecified; F10.10 Alcohol abuse, uncomplicated; E87.6 Hypokalemia; I10 Essential (primary) hypertension; K21.9 Gastro-esophageal reflux disease without esophagitis; D72.829 Elevated white blood cell count, unspecified; Z91.19 Patient's noncompliance with other medical treatment and regimen; Z80.3 Family history of malignant neoplasm of breast; Z81.1 Family history of alcohol abuse and dependence
CPT/HCPCS: 36415; 74177; 80053; 80307; 81001; 83690; 83735; 85007; 85025; 85610; 96361; 96374; 96375; 96376; G0480; J1170; J2060; J2405; J3490; J7030; Q9967; S0028; 99285-25; G0479

== ENCOUNTER 2017-05-15 10:41 | Inpatient (IN) | payer SELFPAY ==
[2017-05-15 11:27] LABS: ADD MAN DIFF? NO
[2017-05-15 11:33] LABS: BILIRUBIN,URINE NEGATIVE (NEG); CLARITY,URINE CLEAR; COLOR,URINE YELLOW; GLUCOSE,URINE NEGATIVE (NEG); NITRITE,URINE NEGATIVE (NEG); PROTEIN,URINE NEGATIVE (NEG-TRACE); UROBILINOGEN,URINE 0.2 mg/dL (0.2 mg/dL)
[2017-05-15 11:34] LABS: BASO # 0.1 x10^3/uL (0.0-0.2); BASO % 1 % (0-3); EOS # 0.1 x10^3/uL (0.0-0.7); EOS % 1 % (0-3); HEMATOCRIT 45.4 % (39.0-53.0); HEMOGLOBIN 15.5 g/dL (13.0-17.5); LYMPH % 10 % (24-48); MEAN CORPUSCULAR HEMOGLOBIN 31 pg (25-35); MEAN CORPUSCULAR HGB CONC 34 g/dL (31-37); MEAN CORPUSCULAR VOLUME 90 fL (79-100); MONO # 0.8 x10^3/uL (0.0-1.1); MONO % 8 % (0-9); NEUT # 7.9 x10^3uL (1.8-7.7); NEUT % 80 % (31-73); PLATELET COUNT 207 x10^3/uL (140-400); RED BLOOD COUNT 5.05 x10^6/uL (4.30-5.70); RED CELL DISTRIBUTION WIDTH 14.9 % (11.5-14.5); WHITE BLOOD COUNT 9.9 x10^3/uL (4.0-11.0)
[2017-05-15 11:40] LABS: BARBITURATES NEG (NEG); BENZODIAZEPINES NEG (NEG); CANNABINOIDS NEG (NEG); COCAINE NEG (NEG); METHADONE NEG (NEG); OPIATES NEG (NEG); PHENCYCLIDINE NEG (NEG)
[2017-05-15 11:45] LABS: AMPHETAMINE/METHAMPHETAMINE NEG (NEG); ETHANOL, URINE POS (NEG)
[2017-05-15 11:49] LABS: BACTERIA,URINE 0 /HPF (0-FEW); RBC,URINE 0 /HPF (0-2); WBC,URINE 0 /HPF (0-4)
[2017-05-15 11:54] LABS: ANION GAP 13 (6-14); BLOOD UREA NITROGEN 8 mg/dL (8-26); BUN/CREATININE RATIO 10 (6-20); CALCIUM 9.1 mg/dL (8.5-10.1); CARBON DIOXIDE 26 mmol/L (21-32); CHLORIDE 103 mmol/L (98-107); CREATININE 0.8 mg/dL (0.7-1.3); GFR 118.8; GLUCOSE 100 mg/dL (70-99); INFLUENZA A PATIENT NEGATIVE (NEGATIVE); INFLUENZA B PATIENT NEGATIVE (NEGATIVE); OBC FLU VALID; POTASSIUM 4.3 mmol/L (3.5-5.1); SODIUM 142 mmol/L (136-145)
[2017-05-15] MEDS: fentaNYL PF VIAL 100 MCG/2 ML VIAL IV ×2 (11:58→12:48)
[2017-05-15] MEDS: hydrALAZINE 20 MG/ML VIAL. IVP ×2 (11:59→21:03)
[2017-05-15] MEDS: IV NORMAL SALINE 1000ML BAG 1,000 ML IV ×3 (11:59→21:29)
[2017-05-15 12:00] LABS: ALBUMIN 3.9 g/dL (3.4-5.0); ALK PHOS 108 U/L (46-116); ALT (SGPT) 60 U/L (16-63); AMYLASE 110 U/L (25-115); AST (SGOT) 45 U/L (15-37); LIPASE 858 U/L (73-393); TOTAL BILIRUBIN 0.7 mg/dL (0.2-1.0); TOTAL PROTEIN 7.7 g/dL (6.4-8.2)
[2017-05-15 12:02] LABS: LACTIC ACID 1.9 mmol/L (0.4-2.0)
[2017-05-15] MEDS: MORPHINE SULFATE 2 MG/ML DISP.SYRIN. IV ×4 (13:11→20:44)
[2017-05-15] MEDS: ONDANSETRON PF 4 MG/2 ML VIAL. IV ×2 (13:11→14:30)
[2017-05-15] MEDS ORDERED: ONDANSETRON PF 4 MG/2 ML VIAL. IV (14:45)
[2017-05-15] MEDS ORDERED: CONTRAST GIVEN MC (15:00)
[2017-05-15] MEDS: IOHEXOL 300 MG/ML 100ML VIAL. IV (15:04)
[2017-05-15] MEDS: METOCLOPRAMIDE HCL 10 MG/2 ML VIAL. IV (15:13)
[2017-05-15 15:28] LABS: LACTIC ACID 2.4 mmol/L (0.4-2.0)
[2017-05-15 15:44] LABS: LIPASE 5645 U/L (73-393)
[2017-05-15] MEDS: MULTIVIT INFUSN,ADULT 4,VIT K 10 ML, THIAMINE 100 MG, FOLIC ACID 1 MG in IV DEXTROSE 5 ... IV (16:17)
[2017-05-15] MEDS: HYDROmorphone 2 MG/ML VIAL IVP ×2 (16:36→22:42)
[2017-05-15] MEDS: ALPRAZolam 0.25 MG TABLET PO (16:36)
[2017-05-15] MEDS: chlordiazePOXIDE HCL 25 MG CAPSULE PO (16:36)
[2017-05-15] MEDS: NICOTINE 21MG PATCH. TD (16:37)
[2017-05-15] MEDS: ZOLPIDEM 5 MG TABLET. PO (22:45)
[2017-05-16] MEDS: MORPHINE SULFATE 2 MG/ML DISP.SYRIN. IV ×5 (00:14→18:39)
[2017-05-16] MEDS: HYDROmorphone 2 MG/ML VIAL IVP ×5 (02:45→21:29)
[2017-05-16] MEDS: IV NORMAL SALINE 1000ML BAG 1,000 ML IV ×2 (04:25→09:04)
[2017-05-16] MEDS: hydrALAZINE 20 MG/ML VIAL. IVP ×3 (04:43→18:08)
[2017-05-16 06:24] LABS: BASO % 0 % (0-3); EOS % 0 % (0-3); HEMATOCRIT 43.6 % (39.0-53.0); HEMOGLOBIN 14.9 g/dL (13.0-17.5); LYMPH # 0.6 x10^3/uL (1.0-4.8); LYMPH % 3 % (24-48); MEAN CORPUSCULAR HEMOGLOBIN 31 pg (25-35); MEAN CORPUSCULAR HGB CONC 34 g/dL (31-37); MEAN CORPUSCULAR VOLUME 90 fL (79-100); MONO # 1.3 x10^3/uL (0.0-1.1); MONO % 8 % (0-9); NEUT # 14.3 x10^3uL (1.8-7.7); NEUT % 88 % (31-73); PLATELET COUNT 172 x10^3/uL (140-400); RED BLOOD COUNT 4.85 x10^6/uL (4.30-5.70); WHITE BLOOD COUNT 16.2 x10^3/uL (4.0-11.0)
[2017-05-16 06:47] LABS: ANION GAP 11 (6-14); BLOOD UREA NITROGEN 9 mg/dL (8-26); CALCIUM 8.6 mg/dL (8.5-10.1); CARBON DIOXIDE 27 mmol/L (21-32); CHLORIDE 102 mmol/L (98-107); CREATININE 0.6 mg/dL (0.7-1.3); GFR 165.5; GLUCOSE 129 mg/dL (70-99); POTASSIUM 3.4 mmol/L (3.5-5.1); SODIUM 140 mmol/L (136-145)
[2017-05-16 06:48] LABS: ADD MAN DIFF? YES
[2017-05-16 07:26] LABS: LIPASE 5314 U/L (73-393)
[2017-05-16] MEDS: MULTIVIT INFUSN,ADULT 4,VIT K 10 ML, THIAMINE 100 MG, FOLIC ACID 1 MG in IV DEXTROSE 5 ... IV (09:04)
[2017-05-16] MEDS ORDERED: ONDANSETRON PF 4 MG/2 ML VIAL. IV (10:00)
[2017-05-16 10:15] LABS: % BANDS 3 % (0-9); % LYMPHS 1 % (24-48); % MONOS 3 % (0-10); % SEGS 93 % (35-66)
[2017-05-16 10:17] LABS: PLT ESTIMATE ADEQUATE (ADEQUATE)
[2017-05-16] MEDS: cefTRIAXone IV Push 1 GM VIAL. IVP (10:28)
[2017-05-16] MEDS: POTASSIUM CHLORIDE 10MEQ 100 ML IV ×2 (10:32→11:39)
[2017-05-16] MEDS ORDERED: TPN PER PHARMACY MC (13:45)
[2017-05-16] MEDS: AMINO AC 3%/ELECTROLYTE/GLYCER 1,000 ML IV (14:21)
[2017-05-16] MEDS: NICOTINE 21MG PATCH. TD (15:00)
[2017-05-17] MEDS: HYDROmorphone 2 MG/ML VIAL IVP ×2 (02:15→11:09)
[2017-05-17] MEDS: AMINO AC 3%/ELECTROLYTE/GLYCER 1,000 ML IV ×2 (03:00→17:11)
[2017-05-17] MEDS: MORPHINE SULFATE 2 MG/ML DISP.SYRIN. IV ×9 (04:54→22:58)
[2017-05-17 05:44] LABS: ADD MAN DIFF? NO
[2017-05-17 06:07] LABS: BASO % 0 % (0-3); EOS % 1 % (0-3); HEMATOCRIT 42.4 % (39.0-53.0); HEMOGLOBIN 14.5 g/dL (13.0-17.5); LYMPH # 0.7 x10^3/uL (1.0-4.8); LYMPH % 8 % (24-48); MEAN CORPUSCULAR HEMOGLOBIN 31 pg (25-35); MEAN CORPUSCULAR HGB CONC 34 g/dL (31-37); MEAN CORPUSCULAR VOLUME 91 fL (79-100); MONO % 12 % (0-9); NEUT # 6.6 x10^3uL (1.8-7.7); NEUT % 80 % (31-73); PLATELET COUNT 116 x10^3/uL (140-400); RED BLOOD COUNT 4.68 x10^6/uL (4.30-5.70); RED CELL DISTRIBUTION WIDTH 14.8 % (11.5-14.5); WHITE BLOOD COUNT 8.3 x10^3/uL (4.0-11.0)
[2017-05-17 06:39] LABS: PHOSPHORUS 3.1 mg/dL (2.6-4.7)
[2017-05-17 06:39] LABS: MAGNESIUM 1.8 mg/dL (1.8-2.4); TRIGLYCERIDES 109 mg/dL (0-150)
[2017-05-17 06:43] LABS: ALBUMIN 3.2 g/dL (3.4-5.0); ALBUMIN/GLOBULIN RATIO 0.8 (1.0-1.7); ALK PHOS 87 U/L (46-116); ALT (SGPT) 29 U/L (16-63); ANION GAP 9 (6-14); AST (SGOT) 19 U/L (15-37); BLOOD UREA NITROGEN 9 mg/dL (8-26); BUN/CREATININE RATIO 15 (6-20); CALCIUM 8.6 mg/dL (8.5-10.1); CARBON DIOXIDE 26 mmol/L (21-32); CHLORIDE 100 mmol/L (98-107); CREATININE 0.6 mg/dL (0.7-1.3); GFR 165.5; GLUCOSE 110 mg/dL (70-99); POTASSIUM 3.5 mmol/L (3.5-5.1); SODIUM 135 mmol/L (136-145); TOTAL BILIRUBIN 0.8 mg/dL (0.2-1.0); TOTAL PROTEIN 7.2 g/dL (6.4-8.2)
[2017-05-17 06:46] LABS: LIPASE 1723 U/L (73-393)
[2017-05-17] MEDS: MULTIVIT INFUSN,ADULT 4,VIT K 10 ML, THIAMINE 100 MG, FOLIC ACID 1 MG in IV DEXTROSE 5 ... IV (09:45)
[2017-05-17] MEDS: cefTRIAXone IV Push 1 GM VIAL. IVP (09:45)
[2017-05-17] MEDS: hydrALAZINE 20 MG/ML VIAL. IVP (09:54)
[2017-05-17] MEDS: METOPROLOL TARTRATE 5 MG/5 ML VIAL. IVP ×3 (12:11→23:04)
[2017-05-17 14:19] LABS: BILIRUBIN,URINE NEGATIVE (NEG); CLARITY,URINE CLEAR; COLOR,URINE YELLOW; GLUCOSE,URINE NEGATIVE (NEG); NITRITE,URINE NEGATIVE (NEG); PROTEIN,URINE NEGATIVE (NEG-TRACE); UROBILINOGEN,URINE 0.2 mg/dL (0.2 mg/dL)
[2017-05-17 14:47] LABS: BACTERIA,URINE FEW /HPF (0-FEW); RBC,URINE 0 /HPF (0-2); SQUAMOUS EPITHELIAL CELL,UR OCC /LPF
[2017-05-17] MEDS ORDERED: TOTAL PARENTERAL NUTRITION IV (22:00)
[2017-05-17] MEDS ORDERED: AMINO ACIDS IV (22:00)
[2017-05-17] MEDS ORDERED: DEXTROSE 70% IV (22:00)
[2017-05-17] MEDS ORDERED: [UNRECOGNIZED DRUG - OTHER] IV (22:00)
[2017-05-18] MEDS: MORPHINE SULFATE 2 MG/ML DISP.SYRIN. IV ×10 (01:24→22:18)
[2017-05-18] MEDS: AMINO AC 3%/ELECTROLYTE/GLYCER 1,000 ML IV (03:49)
[2017-05-18] MEDS: METOPROLOL TARTRATE 5 MG/5 ML VIAL. IVP ×3 (06:00→17:03)
[2017-05-18 06:27] LABS: ANION GAP 10 (6-14); BLOOD UREA NITROGEN 12 mg/dL (8-26); CALCIUM 8.6 mg/dL (8.5-10.1); CARBON DIOXIDE 25 mmol/L (21-32); CHLORIDE 100 mmol/L (98-107); CREATININE 0.6 mg/dL (0.7-1.3); GFR 165.5; GLUCOSE 94 mg/dL (70-99); MAGNESIUM 1.9 mg/dL (1.8-2.4); PHOSPHORUS 3.9 mg/dL (2.6-4.7); POTASSIUM 3.7 mmol/L (3.5-5.1); SODIUM 135 mmol/L (136-145)
[2017-05-18] MEDS: cefTRIAXone IV Push 1 GM VIAL. IVP (08:23)
[2017-05-18] MEDS: MULTIVIT INFUSN,ADULT 4,VIT K 10 ML, THIAMINE 100 MG, FOLIC ACID 1 MG in IV DEXTROSE 5 ... IV (08:31)
[2017-05-18] MEDS: TPN PER PHARMACY MC (11:27)
[2017-05-18] MEDS: NICOTINE 21MG PATCH. TD (14:59)
[2017-05-18] MEDS: TOTAL PARENTERAL NUTRITION 1,424.9987 ML, AMINO ACIDS 10 % 60 GM, DEXTROSE 70 % IN WATE... IV (20:17)
[2017-05-18 23:41] LABS: POC GLUCOSE 86 mg/dL (70-99)
[2017-05-19] MEDS: METOPROLOL TARTRATE 5 MG/5 ML VIAL. IVP ×3 (00:44→12:00)
[2017-05-19] MEDS: MORPHINE SULFATE 2 MG/ML DISP.SYRIN. IV ×4 (00:46→10:32)
[2017-05-19 04:17] LABS: ANION GAP 8 (6-14); BLOOD UREA NITROGEN 13 mg/dL (8-26); CALCIUM 9.1 mg/dL (8.5-10.1); CARBON DIOXIDE 28 mmol/L (21-32); CHLORIDE 103 mmol/L (98-107); CREATININE 0.6 mg/dL (0.7-1.3); GFR 165.5; GLUCOSE 96 mg/dL (70-99); MAGNESIUM 1.9 mg/dL (1.8-2.4); PHOSPHORUS 4.8 mg/dL (2.6-4.7); POTASSIUM 3.7 mmol/L (3.5-5.1); SODIUM 139 mmol/L (136-145)
[2017-05-19 05:16] LABS: POC GLUCOSE 101 mg/dL (70-99)
[2017-05-19 07:38] LABS: LIPASE 367 U/L (73-393)
[2017-05-19] MEDS: TPN PER PHARMACY MC (09:10)
[2017-05-19] MEDS: MULTIVIT INFUSN,ADULT 4,VIT K 10 ML, THIAMINE 100 MG, FOLIC ACID 1 MG in IV DEXTROSE 5 ... IV (10:32)
[2017-05-19] MEDS: cefTRIAXone IV Push 1 GM VIAL. IVP (10:40)
[2017-05-19] MEDS ORDERED: AMINO ACIDS IV (22:00)
[2017-05-19] MEDS ORDERED: DEXTROSE 70% IV (22:00)
[2017-05-19] MEDS ORDERED: TOTAL PARENTERAL NUTRITION IV (22:00)
[2017-05-19] MEDS ORDERED: [UNRECOGNIZED DRUG - OTHER] IV (22:00)
== END 2017-05-19 16:48 | disposition home or self-care (01) | DRG 439 ==
LOC: ER 10:41 → 5 SOUTH 12:48
PROC: 05HB33Z Insertion of Infusion Device into Right Basilic Vein, Percutaneous Approach (ICD-10-PCS; principal; 2017-05-15)
PROC: B54MZZA Ultrasonography of Right Upper Extremity Veins, Guidance (ICD-10-PCS; 2017-05-15)
PROC: 02HV33Z Insertion of Infusion Device into Superior Vena Cava, Percutaneous Approach (ICD-10-PCS; 2017-05-15)
DX: K85.20 Alcohol induced acute pancreatitis without necrosis or infection (principal); R65.10 Systemic inflammatory response syndrome (SIRS) of non-infectious origin without acute organ dysfunction; F11.20 Opioid dependence, uncomplicated; K86.3 Pseudocyst of pancreas; K86.0 Alcohol-induced chronic pancreatitis; E11.9 Type 2 diabetes mellitus without complications; F17.210 Nicotine dependence, cigarettes, uncomplicated; I10 Essential (primary) hypertension; Z80.3 Family history of malignant neoplasm of breast; F10.20 Alcohol dependence, uncomplicated; K21.9 Gastro-esophageal reflux disease without esophagitis; Z90.49 Acquired absence of other specified parts of digestive tract
CPT/HCPCS: 36415; 36569; 71020; 74177; 76705; 80048; 80053; 80307; 81001; 82150; 82962; 83605; 83690; 83735; 84100; 84478; 85007; 85025; 87804; 87804-59; 96361; 96374; 96375; 99285; 99285-25; J0360; J0610; J0696; J1170; J2270; J2405; J2765; J3010; J3475; J3480; J3490; J7030; Q9967

== ENCOUNTER 2018-03-02 17:51 | Inpatient (IN) | payer SELFPAY ==
[~2018-03-02] VITALS: Ht 193 cm; Wt 108.9 kg
[~2018-03-02 17:51] MED LIST: OXYC5TAB95 PO
[2018-03-02] MEDS ORDERED: LIDO:MAALOX 1:1 20 ML SINGLE DOSE. SWSW ONE (18:00)
--- NOTE | 2018-03-02 18:06 | PHYS DOC ---
Past Medical History Past Medical History: Hypertension, Pancreatitis Past Surgical History: No Surgical History Alcohol Use: Heavy Drug Use: None Adult General Chief Complaint Chief Complaint: ABDOMINAL PAIN HPI HPI Patient is a 27 year old male who presents with eating spicy food last night and continuing having mid epigastric pain. Patient states he took some Advil this morning with little relief. Patient rates pain 8 out of 10. Patient denies vomiting, nausea, diarrhea. Patient's bowel movement was about 3 hours ago and was normal for him. Review of Systems Review of Systems Constitutional: Denies fever or chills [] Eyes: Denies change in visual acuity, redness, or eye pain [] HENT: Denies nasal congestion or sore throat [] Respiratory: Denies cough or shortness of breath [] Cardiovascular: No additional information not addressed in HPI [] GI: Epigastric abdominal pain. Denies nausea, vomiting, bloody stools or diarrhea [] : Denies dysuria or hematuria [] Musculoskeletal: Denies back pain or joint pain [] Integument: Denies rash or skin lesions [] Neurologic: Denies headache, focal weakness or sensory changes [] Endocrine: Denies polyuria or polydipsia [] All other systems were reviewed and found to be within normal limits, except as documented in this note. Current Medications Current Medications Current Medications Medications (Trade) Dose Ordered Sig/Barb Start Time Stop Time Status Last Admin Dose Admin Fentanyl Citrate (Fentanyl 2ml Vial) 50 mcg PRN Q2HR PRN 03/02/18 19:30 03/03/18 19:29 UNV Multi-Ingredient Mouthwash/Gargle (Gi Cocktail) 20 ml 1X ONCE 03/02/18 18:00 03/02/18 18:10 DC 03/02/18 18:00 20 ML Ondansetron HCl (Zofran) 4 mg PRN Q8HRS PRN 03/02/18 19:30 03/03/18 19:29 UNV Sodium Chloride 1,000 ml @ 200 mls/hr Q5H 03/02/18 19:30 03/03/18 19:29 UNV Allergies Allergies Allergies Coded Allergies Type Severity Reaction Last Updated Verified No Known Drug Allergies 04/17/17 No Physical Exam Physical Exam Constitutional: Well developed, well nourished, no acute distress, non-toxic appearance. [] HENT: Normocephalic, atraumatic, bilateral external ears normal, oropharynx moist, no oral exudates, nose normal. [] Eyes: PERRLA, EOMI, conjunctiva normal, no discharge. [] Neck: Normal range of motion, no tenderness, supple, no stridor. [] Cardiovascular:Heart rate regular rhythm, no murmur [] Lungs & Thorax: Bilateral breath sounds clear to auscultation [] Abdomen: Bowel sounds normal, soft, epigastric tenderness, no masses, no pulsatile masses. [] Skin: Warm, dry, no erythema, no rash. [] Back: No tenderness, no CVA tenderness. [] Extremities: No tenderness, no cyanosis, no clubbing, ROM intact, no edema. [] Neurologic: Alert and oriented X 3, normal motor function, normal sensory function, no focal deficits noted. [] Psychologic: Affect normal, judgement normal, mood normal. [] Current Patient Data Vital Signs Vital Signs Date Time Temp Pulse Resp B/P (MAP) Pulse Ox O2 Delivery O2 Flow Rate FiO2 03/02/18 19:11 16 98 Room Air 03/02/18 18:00 98.5 76 183/114 (137) 98.5 Lab Values Laboratory Tests Test 03/02/18 18:20 03/02/18 19:18 White Blood Count 8.3 x10^3/uL (4.0-11.0) Red Blood Count 4.77 x10^6/uL (4.30-5.70) Hemoglobin 15.1 g/dL (13.0-17.5) Hematocrit 41.6 % (39.0-53.0) Mean Corpuscular Volume 87 fL (79-100) Mean Corpuscular Hemoglobin 32 pg (25-35) Mean Corpuscular Hemoglobin Concent 36 g/dL (31-37) Red Cell Distribution Width 13.9 % (11.5-14.5) Platelet Count 179 x10^3/uL (140-400) Neutrophils (%) (Auto) 77 % (31-73) H Lymphocytes (%) (Auto) 14 % (24-48) L Monocytes (%) (Auto) 7 % (0-9) Eosinophils (%) (Auto) 2 % (0-3) Basophils (%) (Auto) 1 % (0-3) Neutrophils # (Auto) 6.4 x10^3uL (1.8-7.7) Lymphocytes # (Auto) 1.2 x10^3/uL (1.0-4.8) Monocytes # (Auto) 0.5 x10^3/uL (0.0-1.1) Eosinophils # (Auto) 0.2 x10^3/uL (0.0-0.7) Basophils # (Auto) 0.1 x10^3/uL (0.0-0.2) Sodium Level 144 mmol/L (136-145) Potassium Level 3.8 mmol/L (3.5-5.1) Chloride Level 104 mmol/L (98-107) Carbon Dioxide Level 26 mmol/L (21-32) Anion Gap 14 (6-14) Blood Urea Nitrogen 13 mg/dL (8-26) Creatinine 0.8 mg/dL (0.7-1.3) Estimated GFR (Cockcroft-Gault) 117.8 BUN/Creatinine Ratio 16 (6-20) Glucose Level 98 mg/dL (70-99) Calcium Level 9.2 mg/dL (8.5-10.1) Total Bilirubin 0.7 mg/dL (0.2-1.0) Aspartate Amino Transferase (AST) 48 U/L (15-37) H Alanine Aminotransferase (ALT) 91 U/L (16-63) H Alkaline Phosphatase 86 U/L (46-116) Total Protein 7.8 g/dL (6.4-8.2) Albumin 4.0 g/dL (3.4-5.0) Albumin/Globulin Ratio 1.1 (1.0-1.7) Lipase 658 U/L (73-393) H Urine Collection Type Unknown Urine Color Yellow Urine Clarity Clear Urine pH 6.5 Urine Specific Patterson 1.025 Urine Protein Negative mg/dL (NEG-TRACE) Urine Glucose (UA) Negative mg/dL (NEG) Urine Ketones (Stick) Negative mg/dL (NEG) Urine Blood Negative (NEG) Urine Nitrite Negative (NEG) Urine Bilirubin Negative (NEG) Urine Urobilinogen Dipstick 0.2 mg/dL (0.2 mg/dL) Urine Leukocyte Esterase Negative (NEG) Urine RBC Occ /HPF (0-2) Urine WBC 0 /HPF (0-4) Urine Squamous Epithelial Cells Few /LPF Urine Bacteria 0 /HPF (0-FEW) Urine Mucus Marked /LPF Urine Opiates Screen Neg (NEG) Urine Methadone Screen Neg (NEG) Urine Barbiturates Neg (NEG) Urine Phencyclidine Screen Neg (NEG) Urine Amphetamine/Methamphetamine Neg (NEG) Urine Benzodiazepines Screen Neg (NEG) Urine Cocaine Screen Neg (NEG) Urine Cannabinoids Screen Neg (NEG) Urine Ethyl Alcohol Neg (NEG) Laboratory Tests 03/02/18 18:20 Laboratory Tests 03/02/18 18:20 EKG EKG Sinus rhythm, no STEMI[] Interpretation Time: [address] Swartz Radiology/Procedures Radiology/Procedures Abdominal US Impressions: [facility] [address] [place], [place] [id number] IMAGING REPORT Signed PATIENT: RUEL BORREGO ACCOUNT: [id number] : 1990 LOCATION: ER AGE: 27 SEX: M EXAM STATUS: REG ER ORD. PHYSICIAN: ODALYS SIMMONS APRN REASON: HX pancreatitis , EPIGASTRIC PAIN PROCEDURE: ABDOMEN LTD ABDOMEN LTD History: Pancreatitis, abdominal pain Comparison: May 15, 2017 Findings: Multiple sonographic images of the abdomen are submitted. Pancreas is poorly visualized due to bowel gas, may be somewhat enlarged and heterogeneous, no focal fluid collection in this region. Gallbladder is present without intraluminal abnormality, wall thickening, pericholecystic fluid. There is some coarsening of the hepatic echotexture. No focal hepatic lesion is demonstrated. Right lobe of the liver measures 13.7 cm longitudinal. No free fluid is demonstrated. There is segmental visualization of the inferior vena cava. Right kidney measured 10.4 x 5.2 x 5.2 cm, no hydronephrosis. Common bile duct is within normal limits at 0.4 cm. Impression: 1. Pancreas is poorly visualized due to bowel gas, may be somewhat enlarged and heterogeneous as can be seen with pancreatitis, no focal fluid collection. 2. There is probable hepatic steatosis. Electronically signed by: Ben Sharma MD (03/02/2018 7:27 PM) [facility] DICTATED and SIGNED BY: BEN SHARMA MD DATE: 03/02/181923 Course & Med Decision Making Course & Med Decision Making Patient is a 27 year old male who presents with eating spicy food last night and continuing having mid epigastric pain. Patient states he took some Advil this morning with little relief. Patient rates pain 8 out of 10. Patient denies vomiting, nausea, diarrhea. Patient's bowel movement was about 3 hours ago and was normal for him. Skin is pink warm and dry. Patient is alert and oriented. Patient's lungs are clear to auscultation in all lobes. Abdomen is soft, without masses, and tender in the mid epigastric area. Patient denies any urinary symptoms. Patient denies headache, shortness breath, chest pain, numbness, tingling. She has no extremity edema. Patient states that he has a history of pancreatitis and anxiety. Patient states he takes no medications daily. Patient's blood pressure is currently 183/114 and states that at times it does get high but he has never been diagnosed and has no symptoms. Patient is asymptomatic. Patient denies drinking alcohol or or doing drugs. He has no known drug allergies. EKG sinus Rhythm and read by Dr Swartz. AST 48, alt 91, Lipase 658. Patient to be admitted for acute pancreatitis. I have spoken with Dr Sanchez and she has agreed to admit the patient. I will also consult GI. ABD US shows 1. Pancreas is poorly visualized due to bowel gas, may be somewhat enlarged and heterogeneous as can be seen with pancreatitis, no focal fluid collection. 2. There is probable hepatic steatosis. [] Dragon Disclaimer Dragon Disclaimer This electronic medical record was generated, in whole or in part, using a voice recognition dictation system. Departure Departure Impression: Primary Impression: Acute pancreatitis Disposition: 09 ADMITTED INPATIENT Admitting Physician: Allie Sanchez Condition: STABLE Referrals: NO PCP (PCP) Problem Qualifiers Primary Impression: Acute pancreatitis Pancreatitis type: unspecified pancreatitis type Acute pancreatitis complication: unspecified Qualified Codes: K85.90 - Acute pancreatitis without necrosis or infection, unspecified ODALYS SIMMONS PREFITTER DOORS Mar 02, 2018 18:06
--- NOTE | 2018-03-02 18:20 | EKG ---
[facility] [address] [place] [address] Test Date: 2018-03-02 Test Time: 18:13:31 Pat Name: RUEL BORREGO Department: Room: Gender: [employer]: [place] : 1990 Requested By: ODALYS SIMMONS Order Number: [id number] Reading MD: Keagan Phan MD Measurements Intervals [place] Rate: 76 P: 49 MS: 174 QRS: -6 QRSD: 94 T: 17 QT: 370 QTc: 420 Interpretive Statements SINUS RHYTHM Electronically Signed On 03-03-2018 9:38:56 CDT by Keagan Phan MD
[2018-03-02 18:36] LABS: BASO # 0.1 x10^3/uL (0.0-0.2); BASO % 1 % (0-3); CALCIUM 9.2 mg/dL (8.5-10.1); CREATININE 0.8 mg/dL (0.7-1.3); EOS # 0.2 x10^3/uL (0.0-0.7); EOS % 2 % (0-3); GFR 117.8; HEMATOCRIT 41.6 % (39.0-53.0); HEMOGLOBIN 15.1 g/dL (13.0-17.5); LYMPH # 1.2 x10^3/uL (1.0-4.8); LYMPH % 14 % (24-48); MEAN CORPUSCULAR HEMOGLOBIN 32 pg (25-35); MEAN CORPUSCULAR HGB CONC 36 g/dL (31-37); MEAN CORPUSCULAR VOLUME 87 fL (79-100); MONO # 0.5 x10^3/uL (0.0-1.1); MONO % 7 % (0-9); NEUT # 6.4 x10^3uL (1.8-7.7); NEUT % 77 % (31-73); PLATELET COUNT 179 x10^3/uL (140-400); POTASSIUM 3.8 mmol/L (3.5-5.1); RED BLOOD COUNT 4.77 x10^6/uL (4.30-5.70); RED CELL DISTRIBUTION WIDTH 13.9 % (11.5-14.5); WHITE BLOOD COUNT 8.3 x10^3/uL (4.0-11.0)
[2018-03-02 18:41] LABS: ALBUMIN/GLOBULIN RATIO 1.1 (1.0-1.7); TOTAL BILIRUBIN 0.7 mg/dL (0.2-1.0); TOTAL PROTEIN 7.8 g/dL (6.4-8.2)
[2018-03-02] MEDS ORDERED: fentaNYL PF VIAL 100 MCG/2 ML VIAL IV ONE (19:00)
[2018-03-02] MEDS ORDERED: IV NORMAL SALINE 1000ML BAG 1,000 ML IV ONE (19:00)
[2018-03-02 19:26] LABS: BILIRUBIN,URINE NEGATIVE (NEG); CLARITY,URINE CLEAR; COLOR,URINE YELLOW; NITRITE,URINE NEGATIVE (NEG); PH,URINE 6.5; PROTEIN,URINE NEGATIVE (NEG-TRACE); UROBILINOGEN,URINE 0.2 mg/dL (0.2 mg/dL)
[2018-03-02 19:30] LABS: BACTERIA,URINE 0 /HPF (0-FEW); RBC,URINE OCC /HPF (0-2); SQUAMOUS EPITHELIAL CELL,UR FEW /LPF; WBC,URINE 0 /HPF (0-4)
[2018-03-02] MEDS ORDERED: fentaNYL PF VIAL 100 MCG/2 ML VIAL IV PRN (19:30)
[2018-03-02] MEDS ORDERED: ONDANSETRON PF 4 MG/2 ML VIAL. IV PRN (19:30)
--- NOTE | 2018-03-02 19:30 | RAD ---
ABDOMEN LTD History: Pancreatitis, abdominal pain Comparison: May 15, 2017 Findings: Multiple sonographic images of the abdomen are submitted. Pancreas is poorly visualized due to bowel gas, may be somewhat enlarged and heterogeneous, no focal fluid collection in this region. Gallbladder is present without intraluminal abnormality, wall thickening, pericholecystic fluid. There is some coarsening of the hepatic echotexture. No focal hepatic lesion is demonstrated. Right lobe of the liver measures 13.7 cm longitudinal. No free fluid is demonstrated. There is segmental visualization of the inferior vena cava. Right kidney measured 10.4 x 5.2 x 5.2 cm, no hydronephrosis. Common bile duct is within normal limits at 0.4 cm. Impression: 1. Pancreas is poorly visualized due to bowel gas, may be somewhat enlarged and heterogeneous as can be seen with pancreatitis, no focal fluid collection. 2. There is probable hepatic steatosis. Electronically signed by: Gaston Tenorio MD (03/02/2018 7:27 PM) [facility]
[2018-03-02 19:33] LABS: BARBITURATES NEG (NEG); BENZODIAZEPINES NEG (NEG); CANNABINOIDS NEG (NEG); COCAINE NEG (NEG); METHADONE NEG (NEG); OPIATES NEG (NEG); PHENCYCLIDINE NEG (NEG)
[2018-03-02 19:35] LABS: AMPHETAMINE/METHAMPHETAMINE NEG (NEG)
[2018-03-02 20:30] VITALS: BP 156/110
[2018-03-02] MEDS ORDERED: MORPHINE SULFATE 4 MG/ML VIAL. IV PRN (20:45)
[2018-03-02] MEDS ORDERED: ENALAPRILAT 1.25 MG/ML VIAL. IVP PRN (21:00)
[2018-03-02] MEDS: IV NORMAL SALINE 1000ML BAG 1,000 ML IV SCH (21:01)
[2018-03-02] MEDS: fentaNYL PF VIAL 100 MCG/2 ML VIAL IV PRN ×2 (21:35→23:39)
[2018-03-02] MEDS ORDERED: IBUP200C9 PO (21:58)
[2018-03-02 23:00] VITALS: BP 147/96
[2018-03-03] MEDS ORDERED: ENALAPRILAT 1.25 MG/ML VIAL. IVP SCH
[2018-03-03] MEDS: IV NORMAL SALINE 1000ML BAG 1,000 ML IV SCH ×6 (00:47→20:26)
[2018-03-03] MEDS: fentaNYL PF VIAL 100 MCG/2 ML VIAL IV PRN ×11 (01:40→22:42)
[2018-03-03 03:00] VITALS: BP 139/96
[2018-03-03 07:00] VITALS: BP 148/90
[2018-03-03] MEDS ORDERED: DOCUSATE SODIUM 100 MG CAPSULE. PO PRN (09:00)
[2018-03-03] MEDS ORDERED: MORPHINE SULFATE 2 MG/ML VIAL. IV PRN (09:00)
[2018-03-03] MEDS ORDERED: ONDANSETRON PF 4 MG/2 ML VIAL. IV PRN (09:00)
[2018-03-03] MEDS ORDERED: ACETAMINOPHEN 325 MG TABLET. PO PRN (09:00)
--- NOTE | 2018-03-03 09:16 | PDOC2 ---
GI CONSULT Reason For Consult: Acute pancreatitis HPI: HPI: 27 y/o male who we saw twice last year. H/o recurrent pancreatitis and binge drinking. On past imaging: normal gallbladder, pseudocysts, and hepatic steatosis. Came to ER this time w/ sharp epigastric pain radiating through to mid/upper back. Pain began yesterday morning- he feels precipitated by eating spicy noodles the night before. Pain is the same as previous episodes of pancreatitis but less severe. He thinks he last drank alcohol sometime last week - says less than before, just "here and there." Does have h/o heartburn "off and on," maybe twice weekly after eating foods like pizza. This has not worsened recently and is not associated w/ current pain. No n/v. No change in appetite or weight. No diarrhea or constipation. No hematochezia or melena. No previous EGD or colonoscopy. Occasional NSAIDs. This time, labs include lipase 658, AST 48, ALT 91, and negative tox screen. US noted hepatic steatosis and possibly enlarged heterogeneous pancreas. PMH: PMH: HTN, GERD, pancreatitis, alcohol abuse, hepatic steatosis, ?exploratory surgery (retroperitoneal approach) for "cyst" (though apparently not found) FH: Family History: Cancer (breast - MGM, stomach and bone - MGF, esophageal - maternal great uncle), Other (mother - cholecystectomy) Social History: Smoke: <1 pack per day ALCOHOL: heavy Drugs: None ROS: GEN: Denies fevers, chills, sweats HEENT: Denies blurred vision, sore throat CV: Denies chest pain RESP: Denies shortness of air, cough GI: Per HPI : Denies hematuria, dysuria ENDO: Denies weight changes NEURO: Denies confusion, dizziness MSK: Denies weakness, joint pain/swelling SKIN: Denies jaundice, pruritus Vitals: Vitals: Vital Signs Date Time Temp Pulse Resp B/P (MAP) Pulse Ox O2 Delivery O2 Flow Rate FiO2 03/03/18 08:33 18 95 Room Air 03/03/18 07:00 97.7 63 148/90 (109) 97.7 Labs: Labs: Laboratory Tests Test 03/02/18 18:20 03/02/18 19:18 03/02/18 19:40 White Blood Count 8.3 x10^3/uL (4.0-11.0) Red Blood Count 4.77 x10^6/uL (4.30-5.70) Hemoglobin 15.1 g/dL (13.0-17.5) Hematocrit 41.6 % (39.0-53.0) Mean Corpuscular Volume 87 fL (79-100) Mean Corpuscular Hemoglobin 32 pg (25-35) Mean Corpuscular Hemoglobin Concent 36 g/dL (31-37) Red Cell Distribution Width 13.9 % (11.5-14.5) Platelet Count 179 x10^3/uL (140-400) Neutrophils (%) (Auto) 77 % (31-73) Lymphocytes (%) (Auto) 14 % (24-48) Monocytes (%) (Auto) 7 % (0-9) Eosinophils (%) (Auto) 2 % (0-3) Basophils (%) (Auto) 1 % (0-3) Neutrophils # (Auto) 6.4 x10^3uL (1.8-7.7) Lymphocytes # (Auto) 1.2 x10^3/uL (1.0-4.8) Monocytes # (Auto) 0.5 x10^3/uL (0.0-1.1) Eosinophils # (Auto) 0.2 x10^3/uL (0.0-0.7) Basophils # (Auto) 0.1 x10^3/uL (0.0-0.2) Sodium Level 144 mmol/L (136-145) Potassium Level 3.8 mmol/L (3.5-5.1) Chloride Level 104 mmol/L (98-107) Carbon Dioxide Level 26 mmol/L (21-32) Anion Gap 14 (6-14) Blood Urea Nitrogen 13 mg/dL (8-26) Creatinine 0.8 mg/dL (0.7-1.3) Estimated GFR (Cockcroft-Gault) 117.8 BUN/Creatinine Ratio 16 (6-20) Glucose Level 98 mg/dL (70-99) Calcium Level 9.2 mg/dL (8.5-10.1) Total Bilirubin 0.7 mg/dL (0.2-1.0) Aspartate Amino Transf (AST/SGOT) 48 U/L (15-37) Alanine Aminotransferase (ALT/SGPT) 91 U/L (16-63) Alkaline Phosphatase 86 U/L (46-116) Total Protein 7.8 g/dL (6.4-8.2) Albumin 4.0 g/dL (3.4-5.0) Albumin/Globulin Ratio 1.1 (1.0-1.7) Lipase 658 U/L (73-393) Ethyl Alcohol Level < 10 mg/dL (0-10) Urine Collection Type Unknown Urine Color Yellow Urine Clarity Clear Urine pH 6.5 Urine Specific [place] 1.025 Urine Protein Negative mg/dL (NEG-TRACE) Urine Glucose (UA) Negative mg/dL (NEG) Urine Ketones (Stick) Negative mg/dL (NEG) Urine Blood Negative (NEG) Urine Nitrite Negative (NEG) Urine Bilirubin Negative (NEG) Urine Urobilinogen Dipstick 0.2 mg/dL (0.2 mg/dL) Urine Leukocyte Esterase Negative (NEG) Urine RBC Occ /HPF (0-2) Urine WBC 0 /HPF (0-4) Urine Squamous Epithelial Cells Few /LPF Urine Bacteria 0 /HPF (0-FEW) Urine Mucus Marked /LPF Urine Opiates Screen Neg (NEG) Urine Methadone Screen Neg (NEG) Urine Barbiturates Neg (NEG) Urine Phencyclidine Screen Neg (NEG) Urine Amphetamine/Methamphetamine Neg (NEG) Urine Benzodiazepines Screen Neg (NEG) Urine Cocaine Screen Neg (NEG) Urine Cannabinoids Screen Neg (NEG) Urine Ethyl Alcohol Neg (NEG) Lactic Acid Level 0.6 mmol/L (0.4-2.0) Allergies: Coded Allergies: No Known Drug Allergies (Unverified , 04/17/17) Medications: Current Medications Medications (Trade) Dose Ordered Sig/Barb Route PRN Reason Start Time Stop Time Status Last Admin Dose Admin Multi-Ingredient Mouthwash/Gargle (Gi Cocktail) 20 ml 1X ONCE SWSW 03/02/18 18:00 03/02/18 18:10 DC 03/02/18 18:00 Sodium Chloride 1,000 ml @ 1,000 mls/hr 1X ONCE IV 03/02/18 19:00 03/02/18 19:59 DC 03/02/18 19:12 Fentanyl Citrate (Fentanyl 2ml Vial) 50 mcg 1X ONCE IV 03/02/18 19:00 03/02/18 19:01 DC 03/02/18 19:11 Fentanyl Citrate (Fentanyl 2ml Vial) 50 mcg PRN Q2HR PRN IV PAIN 03/02/18 19:30 03/02/18 20:46 DC 03/02/18 20:00 Sodium Chloride 1,000 ml @ 200 mls/hr Q5H IV 03/02/18 19:30 03/03/18 19:29 03/03/18 05:42 Morphine Sulfate (Morphine Sulfate) 4 mg PRN Q2HR PRN IV PAIN 03/02/18 20:45 03/02/18 20:56 Enalaprilat (Vasotec Inj) 1.25 mg PRN Q6HRS PRN IVP ELEVATED BP, SEE COMMENTS 03/02/18 21:00 03/02/18 20:59 Fentanyl Citrate (Fentanyl 2ml Vial) 50 mcg PRN Q2HR PRN IV SEVERE PAIN 03/02/18 21:15 03/03/18 07:51 Imaging: Imaging: RUQ US Impression: 1. Pancreas is poorly visualized due to bowel gas, may be somewhat enlarged and heterogeneous as can be seen with pancreatitis, no focal fluid collection. 2. There is probable hepatic steatosis. PE: GEN: NAD HEENT: Atraumatic, PERRL LUNGS: CTAB HEART: RRR ABD: NABS, S/ND, epigastric discomfort EXTREMITY: No edema SKIN: No rashes, no jaundice NEURO/PSYCH: A & O 3 A/P: A/P: Epigastric pain H/o pancreatitis related to alcohol, h/o pseudocysts GERD Hepatic steatosis CRC screen - average risk HTN -- Still drinking some - unclear what precipitated this episode of pain. Considering recurrent pancreatitis and h/o pseudocysts, check CT A/P. When completed, can try clear liquids. Also add PPI w/ GERD and NSAID history. Could also try GI cocktail PRN. Would do better avoiding alcohol. NHUNG CHURCHILL Mar 03, 2018 09:16
[2018-03-03] MEDS ORDERED: LIDO:MAALOX 1:1 20 ML SINGLE DOSE. PO PRN (09:30)
[2018-03-03] MEDS ORDERED: IOHEXOL 240 MG/ML 50ML VIAL. PO ONE (10:30)
[2018-03-03] MEDS ORDERED: CONTRAST GIVEN. MC PRN (10:30)
[2018-03-03] MEDS ORDERED: IOHEXOL 300 MG/ML 100ML VIAL. IV ONE (10:30)
[2018-03-03 10:55] LABS: ALBUMIN 3.6 g/dL (3.4-5.0); DIRECT BILIRUBIN 0.2 mg/dL (0.0-0.2); TOTAL BILIRUBIN 0.7 mg/dL (0.2-1.0)
[2018-03-03 11:00] VITALS: BP 154/90
[2018-03-03] MEDS: PANTOPRAZOLE 40 MG TABLET.DR. PO SCH (12:09)
--- NOTE | 2018-03-03 13:46 | PDOC1 ---
History and Physical Date of Admission Date of Admission 03/03/18 Identification/Chief Complaint Chief Complaint abd pain Source Source: Chart review, Patient History of Present Illness History of Present Illness Patient is a 27 year old male with h/o alcoholic pancreatitis, came for abd pain from Saturday. Pt denies heavy drinking now, but still drinks sometimes. He also takes advil twice a week for chronic back pain. He said he ate some spicy food on Saturday, yesterday started to have epigastric abd pain, 8/10, radiating to back, constant, without N/V, fever, chills, constipation or diarrhea. lipase 668. Past Medical History Cardiovascular: No pertinent hx Pulmonary: No pertinent hx GI: No pertinent hx Heme/Onc: No pertinent hx Hepatobiliary: No pertinent hx Psych: Addictions Rheumatologic: No pertinent hx Infectious disease: No pertinent hx Renal/: No pertinent hx Endocrine: No pertinent hx Past Surgical History Past Surgical History: No pertinent history Family History Family History: Alcohol Abuse Social History Smoke: <1 pack per day ALCOHOL: heavy Drugs: None Current Problem List Problem List Problems Medical Problems: (1) Acute pancreatitis Status: Acute Current Medications Current Medications Current Medications Medications (Trade) Dose Ordered Sig/Barb Start Time Stop Time Status Last Admin Dose Admin Acetaminophen (Tylenol) 650 mg PRN Q6HRS PRN 03/03/18 09:00 Docusate Sodium (Colace) 100 mg PRN DAILY PRN 03/03/18 09:00 Enalaprilat (Vasotec Inj) 1.25 mg PRN Q6HRS PRN 03/02/18 21:00 03/02/18 20:59 1.25 MG Fentanyl Citrate (Fentanyl 2ml Vial) 50 mcg PRN Q2HR PRN 03/02/18 21:15 03/03/18 12:10 50 MCG Info (CONTRAST GIVEN -- Rx MONITORING) 1 each PRN DAILY PRN 03/03/18 10:30 03/05/18 10:29 Iohexol (Omnipaque 240 Mg/ml) 30 ml 1X ONCE 03/03/18 10:30 03/03/18 10:31 DC 03/03/18 11:30 30 ML Iohexol (Omnipaque 300 Mg/ml) 75 ml 1X ONCE 03/03/18 10:30 03/03/18 10:31 DC 03/03/18 11:30 75 ML Morphine Sulfate (Morphine Sulfate) 2 mg PRN Q2HR PRN 03/03/18 09:00 Multi-Ingredient Mouthwash/Gargle (Gi Cocktail) 20 ml PRN QID PRN 03/03/18 09:30 Ondansetron HCl (Zofran) 4 mg PRN Q6HRS PRN 03/03/18 09:00 Pantoprazole Sodium (Protonix) 40 mg DAILYAC 03/03/18 09:30 03/03/18 12:09 40 MG Sodium Chloride 1,000 ml @ 150 mls/hr Q6H40M 03/03/18 11:30 Tramadol HCl (Ultram) 50 mg PRN Q6HRS PRN 03/03/18 09:00 Allergies Allergies Allergies Coded Allergies Type Severity Reaction Last Updated Verified No Known Drug Allergies 04/17/17 No ROS Review of System CONSTITUTIONAL: No fever or chills EYES: No recent changes SKIN: No rash or itching CARDIOVASCULAR: No chest pain, syncope, palpitations, or edema RESPIRATORY: No SOB or cough GASTROINTESTINAL: No nausea, vomiting or abdominal pain NEUROLOGICAL: No headaches or weakness ENDOCRINE: No cold or heat intolerance GENITOURINARY: No urgency or frequency of urination MUSCULOSKELETAL: No back pain or joint pain LYMPHATICS: No enlarged lymph nodes PSYCHIATRIC: No anxiety or depression Physical Exam Physical Exam GEN.: No apparent distress. Alert and oriented. HEENT: Head is normocephalic, atraumatic NECK: Supple. LUNGS: Clear to auscultation. HEART: RRR, S1, S2 present. Peripheral pulses intact ABDOMEN: Soft Positive bowel sounds. mild epigastric abd tenderness, no guarding or rebound. EXTREMITIES: Without any cyanosis. NEUROLOGIC: Normal speech, normal tone PSYCHIATRIC: Normal affect, normal mood. SKIN: No ulcerations Vitals Vitals Vital Signs Date Time Temp Pulse Resp B/P (MAP) Pulse Ox O2 Delivery O2 Flow Rate FiO2 03/03/18 12:10 18 93 Room Air 03/03/18 11:00 97.7 65 154/90 (111) 97.7 Labs Labs Laboratory Tests Test 03/02/18 18:20 03/02/18 19:18 03/02/18 19:40 03/03/18 10:10 White Blood Count 8.3 x10^3/uL (4.0-11.0) Red Blood Count 4.77 x10^6/uL (4.30-5.70) Hemoglobin 15.1 g/dL (13.0-17.5) Hematocrit 41.6 % (39.0-53.0) Mean Corpuscular Volume 87 fL (79-100) Mean Corpuscular Hemoglobin 32 pg (25-35) Mean Corpuscular Hemoglobin Concent 36 g/dL (31-37) Red Cell Distribution Width 13.9 % (11.5-14.5) Platelet Count 179 x10^3/uL (140-400) Neutrophils (%) (Auto) 77 % (31-73) Lymphocytes (%) (Auto) 14 % (24-48) Monocytes (%) (Auto) 7 % (0-9) Eosinophils (%) (Auto) 2 % (0-3) Basophils (%) (Auto) 1 % (0-3) Neutrophils # (Auto) 6.4 x10^3uL (1.8-7.7) Lymphocytes # (Auto) 1.2 x10^3/uL (1.0-4.8) Monocytes # (Auto) 0.5 x10^3/uL (0.0-1.1) Eosinophils # (Auto) 0.2 x10^3/uL (0.0-0.7) Basophils # (Auto) 0.1 x10^3/uL (0.0-0.2) Sodium Level 144 mmol/L (136-145) Potassium Level 3.8 mmol/L (3.5-5.1) Chloride Level 104 mmol/L (98-107) Carbon Dioxide Level 26 mmol/L (21-32) Anion Gap 14 (6-14) Blood Urea Nitrogen 13 mg/dL (8-26) Creatinine 0.8 mg/dL (0.7-1.3) Estimated GFR (Cockcroft-Gault) 117.8 BUN/Creatinine Ratio 16 (6-20) Glucose Level 98 mg/dL (70-99) Calcium Level 9.2 mg/dL (8.5-10.1) Total Bilirubin 0.7 mg/dL (0.2-1.0) 0.7 mg/dL (0.2-1.0) Aspartate Amino Transf (AST/SGOT) 48 U/L (15-37) 34 U/L (15-37) Alanine Aminotransferase (ALT/SGPT) 91 U/L (16-63) 74 U/L (16-63) Alkaline Phosphatase 86 U/L (46-116) 70 U/L (46-116) Total Protein 7.8 g/dL (6.4-8.2) 7.0 g/dL (6.4-8.2) Albumin 4.0 g/dL (3.4-5.0) 3.6 g/dL (3.4-5.0) Albumin/Globulin Ratio 1.1 (1.0-1.7) Lipase 658 U/L (73-393) 500 U/L (73-393) Ethyl Alcohol Level < 10 mg/dL (0-10) Urine Collection Type Unknown Urine Color Yellow Urine Clarity Clear Urine pH 6.5 Urine Specific [place] 1.025 Urine Protein Negative mg/dL (NEG-TRACE) Urine Glucose (UA) Negative mg/dL (NEG) Urine Ketones (Stick) Negative mg/dL (NEG) Urine Blood Negative (NEG) Urine Nitrite Negative (NEG) Urine Bilirubin Negative (NEG) Urine Urobilinogen Dipstick 0.2 mg/dL (0.2 mg/dL) Urine Leukocyte Esterase Negative (NEG) Urine RBC Occ /HPF (0-2) Urine WBC 0 /HPF (0-4) Urine Squamous Epithelial Cells Few /LPF Urine Bacteria 0 /HPF (0-FEW) Urine Mucus Marked /LPF Urine Opiates Screen Neg (NEG) Urine Methadone Screen Neg (NEG) Urine Barbiturates Neg (NEG) Urine Phencyclidine Screen Neg (NEG) Urine Amphetamine/Methamphetamine Neg (NEG) Urine Benzodiazepines Screen Neg (NEG) Urine Cocaine Screen Neg (NEG) Urine Cannabinoids Screen Neg (NEG) Urine Ethyl Alcohol Neg (NEG) Lactic Acid Level 0.6 mmol/L (0.4-2.0) Direct Bilirubin 0.2 mg/dL (0.0-0.2) Laboratory Tests Test 03/02/18 18:20 03/02/18 19:18 03/02/18 19:40 03/03/18 10:10 White Blood Count 8.3 x10^3/uL (4.0-11.0) Red Blood Count 4.77 x10^6/uL (4.30-5.70) Hemoglobin 15.1 g/dL (13.0-17.5) Hematocrit 41.6 % (39.0-53.0) Mean Corpuscular Volume 87 fL (79-100) Mean Corpuscular Hemoglobin 32 pg (25-35) Mean Corpuscular Hemoglobin Concent 36 g/dL (31-37) Red Cell Distribution Width 13.9 % (11.5-14.5) Platelet Count 179 x10^3/uL (140-400) Neutrophils (%) (Auto) 77 % (31-73) Lymphocytes (%) (Auto) 14 % (24-48) Monocytes (%) (Auto) 7 % (0-9) Eosinophils (%) (Auto) 2 % (0-3) Basophils (%) (Auto) 1 % (0-3) Neutrophils # (Auto) 6.4 x10^3uL (1.8-7.7) Lymphocytes # (Auto) 1.2 x10^3/uL (1.0-4.8) Monocytes # (Auto) 0.5 x10^3/uL (0.0-1.1) Eosinophils # (Auto) 0.2 x10^3/uL (0.0-0.7) Basophils # (Auto) 0.1 x10^3/uL (0.0-0.2) Sodium Level 144 mmol/L (136-145) Potassium Level 3.8 mmol/L (3.5-5.1) Chloride Level 104 mmol/L (98-107) Carbon Dioxide Level 26 mmol/L (21-32) Anion Gap 14 (6-14) Blood Urea Nitrogen 13 mg/dL (8-26) Creatinine 0.8 mg/dL (0.7-1.3) Estimated GFR (Cockcroft-Gault) 117.8 BUN/Creatinine Ratio 16 (6-20) Glucose Level 98 mg/dL (70-99) Calcium Level 9.2 mg/dL (8.5-10.1) Total Bilirubin 0.7 mg/dL (0.2-1.0) 0.7 mg/dL (0.2-1.0) Aspartate Amino Transf (AST/SGOT) 48 U/L (15-37) 34 U/L (15-37) Alanine Aminotransferase (ALT/SGPT) 91 U/L (16-63) 74 U/L (16-63) Alkaline Phosphatase 86 U/L (46-116) 70 U/L (46-116) Total Protein 7.8 g/dL (6.4-8.2) 7.0 g/dL (6.4-8.2) Albumin 4.0 g/dL (3.4-5.0) 3.6 g/dL (3.4-5.0) Albumin/Globulin Ratio 1.1 (1.0-1.7) Lipase 658 U/L (73-393) 500 U/L (73-393) Ethyl Alcohol Level < 10 mg/dL (0-10) Urine Collection Type Unknown Urine Color Yellow Urine Clarity Clear Urine pH 6.5 Urine Specific [place] 1.025 Urine Protein Negative mg/dL (NEG-TRACE) Urine Glucose (UA) Negative mg/dL (NEG) Urine Ketones (Stick) Negative mg/dL (NEG) Urine Blood Negative (NEG) Urine Nitrite Negative (NEG) Urine Bilirubin Negative (NEG) Urine Urobilinogen Dipstick 0.2 mg/dL (0.2 mg/dL) Urine Leukocyte Esterase Negative (NEG) Urine RBC Occ /HPF (0-2) Urine WBC 0 /HPF (0-4) Urine Squamous Epithelial Cells Few /LPF Urine Bacteria 0 /HPF (0-FEW) Urine Mucus Marked /LPF Urine Opiates Screen Neg (NEG) Urine Methadone Screen Neg (NEG) Urine Barbiturates Neg (NEG) Urine Phencyclidine Screen Neg (NEG) Urine Amphetamine/Methamphetamine Neg (NEG) Urine Benzodiazepines Screen Neg (NEG) Urine Cocaine Screen Neg (NEG) Urine Cannabinoids Screen Neg (NEG) Urine Ethyl Alcohol Neg (NEG) Lactic Acid Level 0.6 mmol/L (0.4-2.0) Direct Bilirubin 0.2 mg/dL (0.0-0.2) VTE Prophylaxis Ordered VTE Prophylaxis Devices: Yes VTE Pharmacological Prophylaxi: Yes Assessment/Plan Assessment/Plan abd pain with acute recurrent alcoholic pancreatitis, plus gastritis possibly given taking NSAIDS htn accelerated heavy drinker plan: gi consulted, will do abd ct to rule out pseudocyst clear liquid diet as per GI cont IV NS, 150cc/h labs daily add lisinopril 40mg daily gi, dvt ppx avoid NSAIDS, educated pt JULISSA SOLANO MD Mar 03, 2018 13:46
[2018-03-03] MEDS: LISINOPRIL 20 MG TABLET PO SCH (14:10)
[2018-03-03] MEDS: ENOXAPARIN 40 MG/0.4 ML SYRINGE. SQ SCH (14:11)
[2018-03-03 15:00] VITALS: BP 146/93
--- NOTE | 2018-03-03 15:51 | RAD ---
CT abdomen and pelvis with contrast History: Abdominal pain, history of pancreatitis and pseudocyst Technique: After the administration of oral and intravenous contrast, CT imaging was performed of the abdomen and pelvis. Multiplanar images are reviewed. Exposure: One or more of the following individualized dose reduction techniques were utilized for this examination: 1. Automated exposure control 2. Adjustment of the mA and/or kV according to patient size 3. Use of iterative reconstruction technique. Comparison: May 15, 2017 Findings: There is no pleural fluid. There is a persistent fluid collection at the pancreatic tail, overall slightly larger up to about 6.4 cm transverse by 5.4 cm AP by 11.5 cm CC versus previously 5.2 cm transverse by 4.7 cm AP by 11.8 cm cc. This extends to the splenic hilum as seen previously. There is also more inferior extent as seen previously with nonspecific mild hyperdensity at the inferior margin unchanged. There is persistent small peripancreatic fluid collection along the inferior, anterior margin of the pancreatic body axial image 36 about 2.5 cm x 0.9 cm axial oblique dimensions by about 1.1 cm CC which is overall smaller, previously 3.4 x 1.4 x 1.5 cm. Previously seen inflammatory change and nonorganized fluid about the pancreas has resolved. Overall size of the pancreas has also decreased. No new peripancreatic fluid collection is identified. Gallbladder is present without obvious intraluminal abnormality by CT. There is no adrenal nodularity. Both kidneys enhance without hydronephrosis. No new focal abnormality of the spleen or liver. Bowel is not dilated. There is no new significant inflammatory change about the bowel. There is no new free fluid or free air. There is mild distention of the urinary bladder. Impression: 1. There is persistent pancreatic/peripancreatic fluid collection involving the tail of pancreas extending to the splenic hilum as well as more inferiorly which is somewhat larger than April 2017 exam. However other previously seen inflammatory change of the pancreas has resolved. Another small peripancreatic fluid collection along the inferior, anterior margin of the body of pancreas is smaller. No new fluid collection is identified. Electronically signed by: Gaston Tenorio MD (03/03/2018 3:48 PM) [id number]
[2018-03-03 19:00] VITALS: BP 132/80
[2018-03-03 22:54] VITALS: BP 134/75
[2018-03-04] MEDS: fentaNYL PF VIAL 100 MCG/2 ML VIAL IV PRN ×8 (00:44→23:11)
[2018-03-04] MEDS: traMADol 50 MG TABLET PO PRN ×2 (02:08→09:48)
[2018-03-04] MEDS: IV NORMAL SALINE 1000ML BAG 1,000 ML IV SCH ×4 (02:59→16:13)
[2018-03-04 03:00] VITALS: BP 137/93
[2018-03-04 05:37] LABS: BASO % 1 % (0-3); EOS # 0.1 x10^3/uL (0.0-0.7); EOS % 2 % (0-3); HEMATOCRIT 36.9 % (39.0-53.0); HEMOGLOBIN 13.2 g/dL (13.0-17.5); LYMPH # 1.3 x10^3/uL (1.0-4.8); LYMPH % 32 % (24-48); MEAN CORPUSCULAR HEMOGLOBIN 32 pg (25-35); MEAN CORPUSCULAR HGB CONC 36 g/dL (31-37); MEAN CORPUSCULAR VOLUME 88 fL (79-100); MONO # 0.3 x10^3/uL (0.0-1.1); MONO % 8 % (0-9); NEUT # 2.4 x10^3uL (1.8-7.7); NEUT % 57 % (31-73); PLATELET COUNT 129 x10^3/uL (140-400); RED BLOOD COUNT 4.17 x10^6/uL (4.30-5.70); WHITE BLOOD COUNT 4.2 x10^3/uL (4.0-11.0)
[2018-03-04 05:45] LABS: CALCIUM 8.9 mg/dL (8.5-10.1); CREATININE 0.7 mg/dL (0.7-1.3); GFR 137.4; POTASSIUM 3.7 mmol/L (3.5-5.1)
[2018-03-04 07:00] VITALS: BP 131/90
[2018-03-04] MEDS: PANTOPRAZOLE 40 MG TABLET.DR. PO SCH (07:39)
[2018-03-04] MEDS: LISINOPRIL 20 MG TABLET PO SCH (07:40)
--- NOTE | 2018-03-04 09:27 | PDOC ---
Subjective: Subjective: Better overall. Mostly tolerating liquids - did have some increased pain after eating last night. Objective: Objective: Getting Tramadol and Fentanyl. Vital Signs: Vital Signs Date Time Temp Pulse Resp B/P (MAP) Pulse Ox O2 Delivery O2 Flow Rate FiO2 03/04/18 07:41 20 93 Room Air 03/04/18 07:40 63 137/93 03/04/18 07:00 97.7 97.7 Labs: Laboratory Tests Test 03/03/18 10:10 03/04/18 05:15 Total Bilirubin 0.7 mg/dL Direct Bilirubin 0.2 mg/dL Aspartate Amino Transf (AST/SGOT) 34 U/L Alanine Aminotransferase (ALT/SGPT) 74 U/L Alkaline Phosphatase 70 U/L Total Protein 7.0 g/dL Albumin 3.6 g/dL Lipase 500 U/L 153 U/L White Blood Count 4.2 x10^3/uL Red Blood Count 4.17 x10^6/uL Hemoglobin 13.2 g/dL Hematocrit 36.9 % Mean Corpuscular Volume 88 fL Mean Corpuscular Hemoglobin 32 pg Mean Corpuscular Hemoglobin Concent 36 g/dL Red Cell Distribution Width 14.0 % Platelet Count 129 x10^3/uL Neutrophils (%) (Auto) 57 % Lymphocytes (%) (Auto) 32 % Monocytes (%) (Auto) 8 % Eosinophils (%) (Auto) 2 % Basophils (%) (Auto) 1 % Neutrophils # (Auto) 2.4 x10^3uL Lymphocytes # (Auto) 1.3 x10^3/uL Monocytes # (Auto) 0.3 x10^3/uL Eosinophils # (Auto) 0.1 x10^3/uL Basophils # (Auto) 0.0 x10^3/uL Sodium Level 142 mmol/L Potassium Level 3.7 mmol/L Chloride Level 106 mmol/L Carbon Dioxide Level 25 mmol/L Anion Gap 11 Blood Urea Nitrogen 5 mg/dL Creatinine 0.7 mg/dL Estimated GFR (Cockcroft-Gault) 137.4 Glucose Level 87 mg/dL Calcium Level 8.9 mg/dL Imaging: CT A/P Impression: 1. There is persistent pancreatic/peripancreatic fluid collection involving the tail of pancreas extending to the splenic hilum as well as more inferiorly which is somewhat larger than April 2017 exam. However other previously seen inflammatory change of the pancreas has resolved. Another small peripancreatic fluid collection along the inferior, anterior margin of the body of pancreas is smaller. No new fluid collection is identified. PE: GEN: NAD LUNGS: CTAB HEART: RRR ABD: epigastric discomfort, soft NEURO/PSYCH: A & O 3 A/P: Alcoholic pancreatitis and pseudocysts - CT as above w/ persistent fluid collection compared to 04/2017 GERD - on PPI Epigastric pain - better, related to above -- Pain is better, some bothersome w/ clears. Supportive care, advance diet slowly when ready. Avoid alcohol. Will review any recs: for monitoring/draining fluid collections w/ Dr. Morales - suspect compliance/follow-up would be an issue - he also reports a vague h/o "exploratory surgery for a cyst they couldn't find." NHUNG CHURCHILL Mar 04, 2018 09:27
[2018-03-04 10:40] VITALS: BP 132/85
--- NOTE | 2018-03-04 12:10 | PDOC ---
PROGRESS NOTES Chief Complaint Chief Complaint abd pain with acute recurrent alcoholic pancreatitis, plus gastritis possibly given taking NSAIDS htn accelerated heavy drinker peripancreas fluid collection plan: gi consulted advance diet to full liquid cont IV NS, 100cc/h labs daily add lisinopril 40mg daily gi, dvt ppx avoid NSAIDS, educated pt talked to GI, cont fu as outpt for the fluid collection. plan dc tmr add lortab prn, ask pt to try not take fetanyl much History of Present Illness History of Present Illness ROS: no fever, chills, sob or chest pain still epigastric abd pain, required fentanyl q2h lipase 153 from 600 Vitals Vitals Vital Signs Date Time Temp Pulse Resp B/P (MAP) Pulse Ox O2 Delivery O2 Flow Rate FiO2 03/04/18 10:50 20 94 Room Air 03/04/18 10:40 97.7 58 132/85 (101) 97.7 Physical Exam General: Alert, Cooperative Heart: Regular rate, Normal S1, Normal S2 Lungs: Clear Abdomen: Normal bowel sounds, Soft, Other (episgastric area mild tenderness) Extremities: No clubbing, No cyanosis Skin: No rashes Labs LABS Laboratory Tests Test 03/04/18 05:15 White Blood Count 4.2 x10^3/uL (4.0-11.0) Red Blood Count 4.17 x10^6/uL (4.30-5.70) Hemoglobin 13.2 g/dL (13.0-17.5) Hematocrit 36.9 % (39.0-53.0) Mean Corpuscular Volume 88 fL (79-100) Mean Corpuscular Hemoglobin 32 pg (25-35) Mean Corpuscular Hemoglobin Concent 36 g/dL (31-37) Red Cell Distribution Width 14.0 % (11.5-14.5) Platelet Count 129 x10^3/uL (140-400) Neutrophils (%) (Auto) 57 % (31-73) Lymphocytes (%) (Auto) 32 % (24-48) Monocytes (%) (Auto) 8 % (0-9) Eosinophils (%) (Auto) 2 % (0-3) Basophils (%) (Auto) 1 % (0-3) Neutrophils # (Auto) 2.4 x10^3uL (1.8-7.7) Lymphocytes # (Auto) 1.3 x10^3/uL (1.0-4.8) Monocytes # (Auto) 0.3 x10^3/uL (0.0-1.1) Eosinophils # (Auto) 0.1 x10^3/uL (0.0-0.7) Basophils # (Auto) 0.0 x10^3/uL (0.0-0.2) Sodium Level 142 mmol/L (136-145) Potassium Level 3.7 mmol/L (3.5-5.1) Chloride Level 106 mmol/L (98-107) Carbon Dioxide Level 25 mmol/L (21-32) Anion Gap 11 (6-14) Blood Urea Nitrogen 5 mg/dL (8-26) Creatinine 0.7 mg/dL (0.7-1.3) Estimated GFR (Cockcroft-Gault) 137.4 Glucose Level 87 mg/dL (70-99) Calcium Level 8.9 mg/dL (8.5-10.1) Lipase 153 U/L (73-393) Assessment and Plan Assessmemt and Plan Problems Medical Problems: (1) Acute pancreatitis Status: Acute Comment Review of Relevant I have reviewed the following items zain (where applicable) has been applied. Labs Laboratory Tests Test 03/02/18 18:20 03/02/18 19:18 03/02/18 19:40 03/03/18 10:10 White Blood Count 8.3 x10^3/uL (4.0-11.0) Red Blood Count 4.77 x10^6/uL (4.30-5.70) Hemoglobin 15.1 g/dL (13.0-17.5) Hematocrit 41.6 % (39.0-53.0) Mean Corpuscular Volume 87 fL (79-100) Mean Corpuscular Hemoglobin 32 pg (25-35) Mean Corpuscular Hemoglobin Concent 36 g/dL (31-37) Red Cell Distribution Width 13.9 % (11.5-14.5) Platelet Count 179 x10^3/uL (140-400) Neutrophils (%) (Auto) 77 % (31-73) Lymphocytes (%) (Auto) 14 % (24-48) Monocytes (%) (Auto) 7 % (0-9) Eosinophils (%) (Auto) 2 % (0-3) Basophils (%) (Auto) 1 % (0-3) Neutrophils # (Auto) 6.4 x10^3uL (1.8-7.7) Lymphocytes # (Auto) 1.2 x10^3/uL (1.0-4.8) Monocytes # (Auto) 0.5 x10^3/uL (0.0-1.1) Eosinophils # (Auto) 0.2 x10^3/uL (0.0-0.7) Basophils # (Auto) 0.1 x10^3/uL (0.0-0.2) Sodium Level 144 mmol/L (136-145) Potassium Level 3.8 mmol/L (3.5-5.1) Chloride Level 104 mmol/L (98-107) Carbon Dioxide Level 26 mmol/L (21-32) Anion Gap 14 (6-14) Blood Urea Nitrogen 13 mg/dL (8-26) Creatinine 0.8 mg/dL (0.7-1.3) Estimated GFR (Cockcroft-Gault) 117.8 BUN/Creatinine Ratio 16 (6-20) Glucose Level 98 mg/dL (70-99) Calcium Level 9.2 mg/dL (8.5-10.1) Total Bilirubin 0.7 mg/dL (0.2-1.0) 0.7 mg/dL (0.2-1.0) Aspartate Amino Transf (AST/SGOT) 48 U/L (15-37) 34 U/L (15-37) Alanine Aminotransferase (ALT/SGPT) 91 U/L (16-63) 74 U/L (16-63) Alkaline Phosphatase 86 U/L (46-116) 70 U/L (46-116) Total Protein 7.8 g/dL (6.4-8.2) 7.0 g/dL (6.4-8.2) Albumin 4.0 g/dL (3.4-5.0) 3.6 g/dL (3.4-5.0) Albumin/Globulin Ratio 1.1 (1.0-1.7) Lipase 658 U/L (73-393) 500 U/L (73-393) Ethyl Alcohol Level < 10 mg/dL (0-10) Urine Collection Type Unknown Urine Color Yellow Urine Clarity Clear Urine pH 6.5 Urine Specific [place] 1.025 Urine Protein Negative mg/dL (NEG-TRACE) Urine Glucose (UA) Negative mg/dL (NEG) Urine Ketones (Stick) Negative mg/dL (NEG) Urine Blood Negative (NEG) Urine Nitrite Negative (NEG) Urine Bilirubin Negative (NEG) Urine Urobilinogen Dipstick 0.2 mg/dL (0.2 mg/dL) Urine Leukocyte Esterase Negative (NEG) Urine RBC Occ /HPF (0-2) Urine WBC 0 /HPF (0-4) Urine Squamous Epithelial Cells Few /LPF Urine Bacteria 0 /HPF (0-FEW) Urine Mucus Marked /LPF Urine Opiates Screen Neg (NEG) Urine Methadone Screen Neg (NEG) Urine Barbiturates Neg (NEG) Urine Phencyclidine Screen Neg (NEG) Urine Amphetamine/Methamphetamine Neg (NEG) Urine Benzodiazepines Screen Neg (NEG) Urine Cocaine Screen Neg (NEG) Urine Cannabinoids Screen Neg (NEG) Urine Ethyl Alcohol Neg (NEG) Lactic Acid Level 0.6 mmol/L (0.4-2.0) Direct Bilirubin 0.2 mg/dL (0.0-0.2) Test 03/04/18 05:15 White Blood Count 4.2 x10^3/uL (4.0-11.0) Red Blood Count 4.17 x10^6/uL (4.30-5.70) Hemoglobin 13.2 g/dL (13.0-17.5) Hematocrit 36.9 % (39.0-53.0) Mean Corpuscular Volume 88 fL (79-100) Mean Corpuscular Hemoglobin 32 pg (25-35) Mean Corpuscular Hemoglobin Concent 36 g/dL (31-37) Red Cell Distribution Width 14.0 % (11.5-14.5) Platelet Count 129 x10^3/uL (140-400) Neutrophils (%) (Auto) 57 % (31-73) Lymphocytes (%) (Auto) 32 % (24-48) Monocytes (%) (Auto) 8 % (0-9) Eosinophils (%) (Auto) 2 % (0-3) Basophils (%) (Auto) 1 % (0-3) Neutrophils # (Auto) 2.4 x10^3uL (1.8-7.7) Lymphocytes # (Auto) 1.3 x10^3/uL (1.0-4.8) Monocytes # (Auto) 0.3 x10^3/uL (0.0-1.1) Eosinophils # (Auto) 0.1 x10^3/uL (0.0-0.7) Basophils # (Auto) 0.0 x10^3/uL (0.0-0.2) Sodium Level 142 mmol/L (136-145) Potassium Level 3.7 mmol/L (3.5-5.1) Chloride Level 106 mmol/L (98-107) Carbon Dioxide Level 25 mmol/L (21-32) Anion Gap 11 (6-14) Blood Urea Nitrogen 5 mg/dL (8-26) Creatinine 0.7 mg/dL (0.7-1.3) Estimated GFR (Cockcroft-Gault) 137.4 Glucose Level 87 mg/dL (70-99) Calcium Level 8.9 mg/dL (8.5-10.1) Lipase 153 U/L (73-393) Laboratory Tests Test 03/04/18 05:15 White Blood Count 4.2 x10^3/uL (4.0-11.0) Red Blood Count 4.17 x10^6/uL (4.30-5.70) Hemoglobin 13.2 g/dL (13.0-17.5) Hematocrit 36.9 % (39.0-53.0) Mean Corpuscular Volume 88 fL (79-100) Mean Corpuscular Hemoglobin 32 pg (25-35) Mean Corpuscular Hemoglobin Concent 36 g/dL (31-37) Red Cell Distribution Width 14.0 % (11.5-14.5) Platelet Count 129 x10^3/uL (140-400) Neutrophils (%) (Auto) 57 % (31-73) Lymphocytes (%) (Auto) 32 % (24-48) Monocytes (%) (Auto) 8 % (0-9) Eosinophils (%) (Auto) 2 % (0-3) Basophils (%) (Auto) 1 % (0-3) Neutrophils # (Auto) 2.4 x10^3uL (1.8-7.7) Lymphocytes # (Auto) 1.3 x10^3/uL (1.0-4.8) Monocytes # (Auto) 0.3 x10^3/uL (0.0-1.1) Eosinophils # (Auto) 0.1 x10^3/uL (0.0-0.7) Basophils # (Auto) 0.0 x10^3/uL (0.0-0.2) Sodium Level 142 mmol/L (136-145) Potassium Level 3.7 mmol/L (3.5-5.1) Chloride Level 106 mmol/L (98-107) Carbon Dioxide Level 25 mmol/L (21-32) Anion Gap 11 (6-14) Blood Urea Nitrogen 5 mg/dL (8-26) Creatinine 0.7 mg/dL (0.7-1.3) Estimated GFR (Cockcroft-Gault) 137.4 Glucose Level 87 mg/dL (70-99) Calcium Level 8.9 mg/dL (8.5-10.1) Lipase 153 U/L (73-393) Medications Current Medications Multi-Ingredient Mouthwash/Gargle (Gi Cocktail) 20 ml 1X ONCE SWSW Last administered on 03/02/18at 18:00; Start 03/02/18 at 18:00; Stop 03/02/18 at 18 :10; Status DC Sodium Chloride 1,000 ml @ 1,000 mls/hr 1X ONCE IV Last administered on 03/02at 19:12; Start 03/02/18 at 19:00; Stop 03/02/18 at 19:59; Status DC Fentanyl Citrate (Fentanyl 2ml Vial) 50 mcg 1X ONCE IV Last administered on at 19:11; Start 03/02/18 at 19:00; Stop 03/02/18 at 19:01; Status DC Ondansetron HCl (Zofran) 4 mg PRN Q8HRS PRN IV NAUSEA/VOMITING; Start at 19:30; Stop 03/03/18 at 19:29; Status DC Fentanyl Citrate (Fentanyl 2ml Vial) 50 mcg PRN Q2HR PRN IV PAIN Last administered on 03/02/18at 20:00; Start 03/02/18 at 19:30; Stop 03/02/18 at 20 :46; Status DC Sodium Chloride 1,000 ml @ 200 mls/hr Q5H IV Last administered on 03/03/18at 05:42; Start 03/02/18 at 19:30; Stop 03/03/18 at 15:33; Status DC Morphine Sulfate (Morphine Sulfate) 4 mg PRN Q2HR PRN IV PAIN Last administered on 03/02/18at 20:56; Start 03/02/18 at 20:45 Enalaprilat (Vasotec Inj) 1.25 mg Q6HRS IVP ; Start 03/03/18 at 00:00; Stop at 00:00; Status DC Enalaprilat (Vasotec Inj) 1.25 mg PRN Q6HRS PRN IVP ELEVATED BP, SEE COMMENTS Last administered on 03/02/18at 20:59; Start 03/02/18 at 21:00 Fentanyl Citrate (Fentanyl 2ml Vial) 50 mcg PRN Q2HR PRN IV SEVERE PAIN Last administered on 03/04/18at 10:26; Start 03/02/18 at 21:15 Acetaminophen (Tylenol) 650 mg PRN Q6HRS PRN PO FEVER; Start 03/03/18 at 09:00 Ondansetron HCl (Zofran) 4 mg PRN Q6HRS PRN IV NAUSEA/VOMITING; Start at 09:00 Morphine Sulfate (Morphine Sulfate) 2 mg PRN Q2HR PRN IV MODERATE TO SEVERE PAIN; Start 03/03/18 at 09:00 Tramadol HCl (Ultram) 50 mg PRN Q6HRS PRN PO MILD TO MODERATE PAIN Last administered on 03/04/18at 09:48; Start 03/03/18 at 09:00 Docusate Sodium (Colace) 100 mg PRN DAILY PRN PO CONSTIPATION; Start 03/03/18 at 09:00 Pantoprazole Sodium (Protonix) 40 mg DAILYAC PO Last administered on at 07:39; Start 03/03/18 at 09:30 Multi-Ingredient Mouthwash/Gargle (Gi Cocktail) 20 ml PRN QID PRN PO abd pain; Start 03/03/18 at 09:30 Iohexol (Omnipaque 240 Mg/ml) 30 ml 1X ONCE PO Last administered on at 11:30; Start 03/03/18 at 10:30; Stop 03/03/18 at 10:31; Status DC Iohexol (Omnipaque 300 Mg/ml) 75 ml 1X ONCE IV Last administered on at 11:30; Start 03/03/18 at 10:30; Stop 03/03/18 at 10:31; Status DC Info (CONTRAST GIVEN -- Rx MONITORING) 1 each PRN DAILY PRN MC SEE COMMENTS; Start 03/03/18 at 10:30; Stop 03/05/18 at 10:29 Sodium Chloride 1,000 ml @ 150 mls/hr Q6H40M IV Last administered on at 09:49; Start 03/03/18 at 11:30 Enoxaparin Sodium (Lovenox 40mg Syringe) 40 mg Q24H SQ Last administered on at 14:11; Start 03/03/18 at 14:00 Lisinopril (Prinivil) 40 mg DAILY PO Last administered on 03/04/18at 07:40; Start 03/03/18 at 14:00 Acetaminophen/ Hydrocodone Bitart (Lortab 5/325) 1 tab PRN Q4HRS PRN PO PAIN MILD; Start 03/04/18 at 10:45 Active Scripts Active Reported Advil (Ibuprofen) 200 Mg Capsule 200 Mg PO PRN Q6HRS PRN Vitals/I & O Vital Sign - Last 24 Hours 03/03/18 03/03/18 03/03/18 03/03/18 12:10 13:49 14:10 15:00 Temp 97.6 97.6 Pulse 65 63 Resp 18 18 20 B/P (MAP) 154/90 146/93 (110) Pulse Ox 93 93 96 O2 Delivery Room Air Room Air Room Air 03/03/18 03/03/18 03/03/18 03/03/18 16:09 18:24 19:00 20:00 Temp 97.7 97.7 Pulse 60 Resp 18 18 18 B/P (MAP) 132/80 (97) Pulse Ox 96 96 98 O2 Delivery Room Air Room Air Room Air Room Air 03/03/18 03/04/18 03/04/18 03/04/18 22:54 03:00 07:00 07:40 Temp 97.8 98.0 97.7 97.8 98.0 97.7 Pulse 68 63 63 63 Resp 18 18 18 B/P (MAP) 134/75 (94) 137/93 (108) 131/90 (104) 137/93 Pulse Ox 97 97 98 O2 Delivery Room Air Room Air Room Air 03/04/18 03/04/18 03/04/18 03/04/18 07:41 08:00 09:48 10:26 Resp 20 20 20 Pulse Ox 93 94 94 O2 Delivery Room Air Room Air Room Air Room Air 03/04/18 03/04/18 03/04/18 10:40 10:50 10:50 Temp 97.7 97.7 Pulse 58 Resp 18 20 20 B/P (MAP) 132/85 (101) Pulse Ox 97 94 94 O2 Delivery Room Air Room Air Room Air Intake and Output 03/03/18 03/03/18 03/04/18 15:00 23:00 07:00 Intake Total 600 ml 1300 ml 100 ml Balance 600 ml 1300 ml 100 ml JULISSA SOLANO MD Mar 04, 2018 12:10
[2018-03-04] MEDS: HYDROcodone/APAP 5/325MG 1 TAB TABLET PO PRN ×3 (12:41→22:03)
[2018-03-04 15:00] VITALS: BP 130/84
[2018-03-04] MEDS: ENOXAPARIN 40 MG/0.4 ML SYRINGE. SQ SCH (15:30)
[2018-03-04 19:00] VITALS: BP 135/82
[2018-03-04 23:00] VITALS: BP 136/81
[2018-03-05] MEDS: IV NORMAL SALINE 1000ML BAG 1,000 ML IV SCH (01:23)
[2018-03-05] MEDS: fentaNYL PF VIAL 100 MCG/2 ML VIAL IV PRN ×4 (01:24→10:46)
[2018-03-05] MEDS: HYDROcodone/APAP 5/325MG 1 TAB TABLET PO PRN ×2 (02:37→07:00)
[2018-03-05 03:00] VITALS: BP 134/89
[2018-03-05 05:27] LABS: BASO % 1 % (0-3); EOS # 0.1 x10^3/uL (0.0-0.7); EOS % 1 % (0-3); HEMATOCRIT 37.7 % (39.0-53.0); HEMOGLOBIN 13.2 g/dL (13.0-17.5); LYMPH # 1.1 x10^3/uL (1.0-4.8); LYMPH % 29 % (24-48); MEAN CORPUSCULAR HEMOGLOBIN 31 pg (25-35); MEAN CORPUSCULAR HGB CONC 35 g/dL (31-37); MEAN CORPUSCULAR VOLUME 88 fL (79-100); MONO # 0.4 x10^3/uL (0.0-1.1); MONO % 11 % (0-9); NEUT # 2.3 x10^3uL (1.8-7.7); NEUT % 59 % (31-73); PLATELET COUNT 127 x10^3/uL (140-400); RED BLOOD COUNT 4.26 x10^6/uL (4.30-5.70)
[2018-03-05 05:40] LABS: CALCIUM 9.2 mg/dL (8.5-10.1); CREATININE 0.8 mg/dL (0.7-1.3); GFR 117.8; POTASSIUM 3.6 mmol/L (3.5-5.1)
[2018-03-05 07:00] VITALS: BP 141/93
[2018-03-05] MEDS: LISINOPRIL 20 MG TABLET PO SCH (08:30)
[2018-03-05] MEDS: PANTOPRAZOLE 40 MG TABLET.DR. PO SCH (08:30)
[2018-03-05] MEDS ORDERED: Pantoprazole PO (09:59)
[2018-03-05] MEDS ORDERED: LISI-130 PO (09:59)
[2018-03-05] MEDS ORDERED: HYDR-2758 PO (09:59)
--- NOTE | 2018-03-05 10:50 | PDOC ---
Subjective: Subjective: Pain is better - tolerating full liquids w/ plans to increase to GI soft and possibly discharge home. Tired. Objective: Vital Signs: Vital Signs Date Time Temp Pulse Resp B/P (MAP) Pulse Ox O2 Delivery O2 Flow Rate FiO2 03/05/18 10:46 Room Air 03/05/18 08:30 55 141/93 03/05/18 08:30 20 94 03/05/18 07:00 98.1 98.1 Labs: Laboratory Tests Test 03/05/18 04:00 White Blood Count 4.0 x10^3/uL Red Blood Count 4.26 x10^6/uL Hemoglobin 13.2 g/dL Hematocrit 37.7 % Mean Corpuscular Volume 88 fL Mean Corpuscular Hemoglobin 31 pg Mean Corpuscular Hemoglobin Concent 35 g/dL Red Cell Distribution Width 14.0 % Platelet Count 127 x10^3/uL Neutrophils (%) (Auto) 59 % Lymphocytes (%) (Auto) 29 % Monocytes (%) (Auto) 11 % Eosinophils (%) (Auto) 1 % Basophils (%) (Auto) 1 % Neutrophils # (Auto) 2.3 x10^3uL Lymphocytes # (Auto) 1.1 x10^3/uL Monocytes # (Auto) 0.4 x10^3/uL Eosinophils # (Auto) 0.1 x10^3/uL Basophils # (Auto) 0.0 x10^3/uL Sodium Level 141 mmol/L Potassium Level 3.6 mmol/L Chloride Level 105 mmol/L Carbon Dioxide Level 26 mmol/L Anion Gap 10 Blood Urea Nitrogen 5 mg/dL Creatinine 0.8 mg/dL Estimated GFR (Cockcroft-Gault) 117.8 Glucose Level 85 mg/dL Calcium Level 9.2 mg/dL Lipase 107 U/L PE: GEN: NAD LUNGS: CTAB HEART: RRR ABD: less tender epigastrium NEURO/PSYCH: A & O 3 A/P: Alcoholic pancreatitis and pseudocysts GERD -- Possible DC today if tolerates advanced diet. Encouraged abstinence from alcohol. He says he will have health insurance soon - encouraged follow-up for repeat imaging re: pseudocysts. Would also continue PPI - he asked what he could take OTC, discussed omeprazole 20mg - 40mg QD. Consider EGD later on. NHUNG CHURCHILL Mar 05, 2018 10:50
[2018-03-05 11:00] VITALS: BP 131/84
--- NOTE | 2018-03-05 11:29 | PDOC3 ---
Discharge Summary [facility] Date of Admission: Mar 02, 2018 Discharge Date: Mar 05, 2018 Admitting Diagnosis abd pain with acute recurrent alcoholic pancreatitis, plus gastritis possibly given taking NSAIDS htn accelerated heavy drinker peripancreas fluid collection , pseudocyst Final Diagnosis CONSULTS gi Brief Hospital Course Patient is a 27 year old male with h/o alcoholic pancreatitis, came for abd pain from Saturday. Pt denies heavy drinking now, but still drinks sometimes. He also takes advil twice a week for chronic back pain. He said he ate some spicy food on Saturday, yesterday started to have epigastric abd pain, 8/10, radiating to back, constant, without N/V, fever, chills, constipation or diarrhea. lipase 668. pt improved with ivf, protonix , pain control. advance diet today to gi soft, dc home if eats fine. lipase back to normal x2ds. CT showed cont 6x5x11 fluid collection. i talked to gi, can outpt fu. educated pt to stop drinking, avoid NSAIDS. lisinopril , lortab, protonix given , asked him to take over the counter nexium if need. dc time 35min. General: Alert, Cooperative Heart: Regular rate, Normal S1, Normal S2 Lungs: Clear Abdomen: Normal bowel sounds, Soft, Other (episgastric area mild tenderness) Extremities: No clubbing, No cyanosis Skin: No rashes Disposition home CONDITION AT DISCHARGE: Improved, Stable Scheduled Lisinopril (Lisinopril), 40 MG PO DAILY [Pantoprazole], 40 MG PO DAILYAC Scheduled PRN Hydrocodone Bit/Acetaminophen (Hydrocodone-Apap 5-325 ), 1 TAB PO PRN Q4HRS PRN for PAIN MILD Discontinued Medications Ibuprofen (Advil), 200 MG PO PRN Q6HRS PRN for PAIN, (Reported) JULISSA SOLANO MD Mar 05, 2018 11:29
== END 2018-03-05 11:18 | disposition home or self-care (01) | DRG 439 ==
LOC: ER 17:51 → 5 SOUTH 19:18
PROVIDERS: ADMIT Internal Medicine; ATTEND Internal Medicine
DX: K85.20 Alcohol induced acute pancreatitis without necrosis or infection (principal); K86.3 Pseudocyst of pancreas; G89.29 Other chronic pain; K86.1 Other chronic pancreatitis; K29.70 Gastritis, unspecified, without bleeding; F17.210 Nicotine dependence, cigarettes, uncomplicated; I10 Essential (primary) hypertension; K21.9 Gastro-esophageal reflux disease without esophagitis; K76.0 Fatty (change of) liver, not elsewhere classified; T39.395A Adverse effect of other nonsteroidal anti-inflammatory drugs [NSAID], initial encounter; Y92.89 Other specified places as the place of occurrence of the external cause; Z80.3 Family history of malignant neoplasm of breast; Z79.899 Other long term (current) drug therapy
CPT/HCPCS: 36415; 74177; 76705; 80048; 80053; 80076; 80307; 81001; 83605; 83690; 85025; 93005; 96361; 96374; G0480; J1650; J2270; J3010; J7030; Q9966; Q9967; 99285-25; G0479

== ENCOUNTER 2018-04-14 07:52 | Emergency (ER) | payer SELFPAY ==
[~2018-04-14] VITALS: Ht 193 cm; Wt 106.6 kg
[~2018-04-14 07:52] MED LIST changes: +HYDR-2761 PO; +IBUP200C9 PO; +LISI-130 PO; +OXYC5TAB4 PO; -OXYC5TAB95 PO; +Pantoprazole PO
[2018-04-14] MEDS ORDERED: IV NORMAL SALINE 1000ML BAG 1,000 ML IV SCH (08:12)
[2018-04-14] MEDS ORDERED: LIDO:MAALOX 1:1 20 ML SINGLE DOSE. SWSW ONE (08:15)
[2018-04-14] MEDS ORDERED: ONDANSETRON PF 4 MG/2 ML VIAL. IV ONE (08:15)
[2018-04-14] MEDS ORDERED: FAMOTIDINE 20 MG/2 ML VIAL IVP ONE (08:15)
--- NOTE | 2018-04-14 08:19 | PHYS DOC ---
Past Medical History Past Medical History: Hypertension, Pancreatitis Past Surgical History: No Surgical History Alcohol Use: Occasionally Drug Use: Marijuana Adult General Chief Complaint Chief Complaint: ABDOMINAL PAIN HPI HPI Patient is a 27-year-old male who presents to the emergency department for evaluation. He states that he drinks heavily on Saturday and yesterday, and awoke this morning with epigastric pain. He has a history of alcoholic pancreatitis in the past. He states this has caused him to significantly curtail his alcohol use but he did drink this weekend. He denies any vomiting but has had some nausea. He denies any black or bloody stools, chest pain, shortness of breath, dizziness or lightheadedness. There are no alleviating, or exacerbating factors to his symptoms otherwise. Review of Systems Review of Systems Constitutional: Denies fever or chills [] Eyes: Denies change in visual acuity, redness, or eye pain [] HENT: Denies nasal congestion or sore throat [] Respiratory: Denies cough or shortness of breath [] Cardiovascular:The patient denies any shortness of breath, chest pain, palpitations, or orthopnea [] GI: Denies vomiting, bloody stools or diarrhea [] : Denies dysuria or hematuria [] Musculoskeletal: Denies back pain or joint pain [] Integument: Denies rash or skin lesions [] Neurologic: Denies headache, focal weakness or sensory changes [] Endocrine: Denies polyuria or polydipsia [] All other systems were reviewed and found to be within normal limits, except as documented in this note. Current Medications Current Medications Current Medications Medications (Trade) Dose Ordered Sig/[facility] Start Time Stop Time Status Last Admin Dose Admin Famotidine (Pepcid Vial) 20 mg 1X ONCE 04/14/18 08:15 04/14/18 08:18 DC 04/14/18 08:32 20 MG Morphine Sulfate (Morphine Sulfate) 4 mg 1X ONCE 04/14/18 09:30 04/14/18 09:31 DC 04/14/18 09:39 4 MG Multi-Ingredient Mouthwash/Gargle (Gi Cocktail) 20 ml 1X ONCE 04/14/18 08:15 04/14/18 08:17 DC 04/14/18 08:32 20 ML Ondansetron HCl (Zofran) 4 mg 1X ONCE 04/14/18 08:15 04/14/18 08:18 DC 04/14/18 08:32 4 MG Sodium Chloride 1,000 ml @ 1,000 mls/hr Q1H 04/14/18 08:12 04/14/18 09:11 DC 04/14/18 08:32 1,000 MLS/HR Allergies Allergies Allergies Coded Allergies Type Severity Reaction Last Updated Verified No Known Drug Allergies 04/17/17 No Physical Exam Physical Exam PHYSICAL EXAM: CONSTITUTIONAL: Well developed, well nourished HEAD: normocephalic, atraumatic EENT: PERRL, EOMI. Conjunctivae normal color, sclerae non-icteric; moist mucous membranes. NECK: Supple, non-tender; no meningismus. LUNGS: Lungs CTA, breathing even and unlabored. Normal air movement. HEART: Regular rate and rhythm, no murmur CHEST: No deformity; non-tender ABDOMEN: The abdomen is soft, there is focal epigastric tenderness to palpation , the right upper quadrant itself is relatively nontender, Sarabia sign is absent. The remainder the abdomen, including the right lower quadrant, is soft and non-tender, no masses or bruits. EXTREM: Normal ROM; no deformity, no calf tenderness. Normal pulses palpable in all extremities. There is no pedal edema. SKIN: No rash; no diaphoresis NEURO: Alert; normal speech and cognition; CN's grossly intact; strength grossly intact without focal deficit. BACK: No CVA TTP. Current Patient Data Vital Signs Vital Signs Date Time Temp Pulse Resp B/P (MAP) Pulse Ox O2 Delivery O2 Flow Rate FiO2 04/14/18 08:58 94 18 156/104 (121) 100 Room Air 04/14/18 08:02 98.2 98.2 Lab Values Laboratory Tests Test 04/14/18 08:25 04/14/18 09:02 White Blood Count 8.5 x10^3/uL (4.0-11.0) Red Blood Count 5.07 x10^6/uL (4.30-5.70) Hemoglobin 15.7 g/dL (13.0-17.5) Hematocrit 43.7 % (39.0-53.0) Mean Corpuscular Volume 86 fL (79-100) Mean Corpuscular Hemoglobin 31 pg (25-35) Mean Corpuscular Hemoglobin Concent 36 g/dL (31-37) Red Cell Distribution Width 14.0 % (11.5-14.5) Platelet Count 308 x10^3/uL (140-400) Neutrophils (%) (Auto) 72 % (31-73) Lymphocytes (%) (Auto) 19 % (24-48) L Monocytes (%) (Auto) 7 % (0-9) Eosinophils (%) (Auto) 1 % (0-3) Basophils (%) (Auto) 1 % (0-3) Neutrophils # (Auto) 6.2 x10^3uL (1.8-7.7) Lymphocytes # (Auto) 1.6 x10^3/uL (1.0-4.8) Monocytes # (Auto) 0.6 x10^3/uL (0.0-1.1) Eosinophils # (Auto) 0.1 x10^3/uL (0.0-0.7) Basophils # (Auto) 0.1 x10^3/uL (0.0-0.2) Sodium Level 137 mmol/L (136-145) Potassium Level 3.9 mmol/L (3.5-5.1) Chloride Level 100 mmol/L (98-107) Carbon Dioxide Level 22 mmol/L (21-32) Anion Gap 15 (6-14) H Blood Urea Nitrogen 8 mg/dL (8-26) Creatinine 0.9 mg/dL (0.7-1.3) Estimated GFR (Cockcroft-Gault) 102.8 BUN/Creatinine Ratio 9 (6-20) Glucose Level 100 mg/dL (70-99) H Calcium Level 9.6 mg/dL (8.5-10.1) Total Bilirubin 0.8 mg/dL (0.2-1.0) Aspartate Amino Transferase (AST) 90 U/L (15-37) H Alanine Aminotransferase (ALT) 134 U/L (16-63) H Alkaline Phosphatase 102 U/L (46-116) Total Protein 8.4 g/dL (6.4-8.2) H Albumin 4.1 g/dL (3.4-5.0) Albumin/Globulin Ratio 1.0 (1.0-1.7) Lipase 238 U/L (73-393) Urine Collection Type Unknown Urine Color Yellow Urine Clarity Clear Urine pH 5.5 Urine Specific [place] 1.020 Urine Protein Negative mg/dL (NEG-TRACE) Urine Glucose (UA) Negative mg/dL (NEG) Urine Ketones (Stick) Trace mg/dL (NEG) Urine Blood Negative (NEG) Urine Nitrite Negative (NEG) Urine Bilirubin Negative (NEG) Urine Urobilinogen Dipstick 0.2 mg/dL (0.2 mg/dL) Urine Leukocyte Esterase Negative (NEG) Urine RBC 0 /HPF (0-2) Urine WBC 1-4 /HPF (0-4) Urine Squamous Epithelial Cells Occ /LPF Urine Bacteria Few /HPF (0-FEW) Urine Hyaline Casts Few /HPF Urine Mucus Marked /LPF Laboratory Tests 04/14/18 08:25 Laboratory Tests 04/14/18 08:25 EKG EKG [] Radiology/Procedures Radiology/Procedures [] Course & Med Decision Making Course & Med Decision Making Pertinent Lab studies reviewed. (See chart for details) [9:55 AM: The patient's condition remains stable. I discussed test results with the patient including is mildly elevated LFTs (they have been elevated in the past as well), the importance of obtaining help with his repeated alcohol use, despite history of recurrent pancreatitis, the need for close PCP follow-up, and return precautions in detail. The patient states he takes medication for blood pressure, although he has not taken any today, but he does have a supply of medication home. He states, however that he received this from the hospital last time he was here does not have a primary care provider. He'll be given resources to help him establish a local primary care provider.] Dragon Disclaimer Dragon Disclaimer This electronic medical record was generated, in whole or in part, using a voice recognition dictation system. Departure Departure Impression: Primary Impression: Alcoholic gastritis Additional Impressions: Alcohol abuse Abdominal pain Disposition: HOME, SELF-CARE Condition: STABLE Referrals: NO PCP (PCP) Patient Instructions: Abdominal Pain, Alcohol Problems, Alcoholic Gastritis- Brief, Gastritis, Adult Scripts Omeprazole (OMEPRAZOLE) 20 Mg Capsule. 20 MG PO DAILY for 30 Days, #30 CAP Prov: COLIN CLEMENTS MD 04/14/18 Problem Qualifiers COLIN CLEMENTS MD Apr 14, 2018 08:19
[2018-04-14 08:41] LABS: BASO # 0.1 x10^3/uL (0.0-0.2); BASO % 1 % (0-3); EOS # 0.1 x10^3/uL (0.0-0.7); EOS % 1 % (0-3); HEMATOCRIT 43.7 % (39.0-53.0); HEMOGLOBIN 15.7 g/dL (13.0-17.5); LYMPH # 1.6 x10^3/uL (1.0-4.8); LYMPH % 19 % (24-48); MEAN CORPUSCULAR HEMOGLOBIN 31 pg (25-35); MEAN CORPUSCULAR HGB CONC 36 g/dL (31-37); MEAN CORPUSCULAR VOLUME 86 fL (79-100); MONO # 0.6 x10^3/uL (0.0-1.1); MONO % 7 % (0-9); NEUT # 6.2 x10^3uL (1.8-7.7); NEUT % 72 % (31-73); PLATELET COUNT 308 x10^3/uL (140-400); RED BLOOD COUNT 5.07 x10^6/uL (4.30-5.70); WHITE BLOOD COUNT 8.5 x10^3/uL (4.0-11.0)
[2018-04-14 08:51] LABS: CALCIUM 9.6 mg/dL (8.5-10.1); CREATININE 0.9 mg/dL (0.7-1.3); GFR 102.8; POTASSIUM 3.9 mmol/L (3.5-5.1)
[2018-04-14 08:57] LABS: ALBUMIN 4.1 g/dL (3.4-5.0); TOTAL BILIRUBIN 0.8 mg/dL (0.2-1.0); TOTAL PROTEIN 8.4 g/dL (6.4-8.2)
[2018-04-14 09:22] LABS: BILIRUBIN,URINE NEGATIVE (NEG); CLARITY,URINE CLEAR; COLOR,URINE YELLOW; NITRITE,URINE NEGATIVE (NEG); PH,URINE 5.5; PROTEIN,URINE NEGATIVE (NEG-TRACE); UROBILINOGEN,URINE 0.2 mg/dL (0.2 mg/dL)
[2018-04-14 09:25] LABS: HYALINE CASTS, URINE FEW /HPF
[2018-04-14 09:26] LABS: BACTERIA,URINE FEW /HPF (0-FEW); RBC,URINE 0 /HPF (0-2); SQUAMOUS EPITHELIAL CELL,UR OCC /LPF
[2018-04-14] MEDS ORDERED: MORPHINE SULFATE 4 MG/ML VIAL. IV ONE (09:30)
[2018-04-14] MEDS ORDERED: OMEP20CA9 PO (10:06)
[2018-04-14 10:28] VITALS: BP 158/110
== END 2018-04-14 10:46 | disposition home or self-care (01) ==
LOC: ER 07:52
DX: K29.20 Alcoholic gastritis without bleeding (principal); F10.20 Alcohol dependence, uncomplicated; Y90.9 Presence of alcohol in blood, level not specified; I10 Essential (primary) hypertension
CPT/HCPCS: 36415; 80053; 81001; 83690; 85025; 96361; 96374; 96375; 99283; J2270; J2405; J3490; J7030

== ENCOUNTER 2019-05-07 05:23 | Emergency (ER) | payer SELFPAY ==
[~2019-05-07] VITALS: Ht 193 cm; Wt 102.1 kg
[~2019-05-07 05:23] MED LIST changes: +CLON0.1T12 PO; +FLUO20CA19 PO; +OMEP-229 PO; +TRAM50TA PO
[2019-05-07 05:45] VITALS: BP 163/91
[2019-05-07] MEDS ORDERED: CLIN300C8 PO (06:35)
[2019-05-07] MEDS: CLINDAMYCIN HCL 150 MG CAPSULE. PO ONE (06:45)
--- NOTE | 2019-05-07 07:13 | PHYS DOC ---
Past Medical History Past Medical History: Hypertension, Pancreatitis Past Surgical History: No Surgical History Alcohol Use: Heavy Drug Use: Marijuana Adult General Chief Complaint Chief Complaint: ABSCESS HPI HPI Patient is a 28 year old male with history of IV drug abuse and MRSA who presents with soft tissue swelling over left elbow ante-cubital crease. 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 Symptom onset was 2 days ago. No fever chills nausea vomiting sweats. No other acute symptoms or complaints. [] Review of Systems Review of Systems Review of symptoms as per history of present illness. All other review symptoms are negative. All other systems were reviewed and found to be within normal limits, except as documented in this note. Current Medications Current Medications Current Medications Medications (Trade) Dose Ordered Sig/Barb Start Time Stop Time Status Last Admin Dose Admin Clindamycin HCl (Cleocin) 300 mg 1X ONCE 05/07/19 07:00 05/07/19 06:56 DC Allergies Allergies Allergies Coded Allergies Type Severity Reaction Last Updated Verified No Known Drug Allergies 04/17/17 No Physical Exam Physical Exam Constitutional: Well developed, well nourished, no acute distress, non-toxic appearance. [] HENT: Normocephalic, atraumatic, bilateral external ears normal, oropharynx moist, no oral exudates, nose normal. [] Eyes: PERRLA, EOMI, conjunctiva normal, no discharge. [] Neck: Normal range of motion, no tenderness, supple, no stridor. [] Cardiovascular:Heart rate regular rhythm, no murmur [] Lungs & Thorax: Bilateral breath sounds clear to auscultation [] Extremities: Left upper extremity, 5 x 1 cm patch of cellulitis overlying left elbow decubital crease, IV track galo noted. Induration without fluctuance. No streaking drainage or pain[] Neurologic: Alert and oriented X 3, normal motor function, normal sensory function, no focal deficits noted. [] Psychologic: Affect normal, judgement normal, mood normal. [] Current Patient Data Vital Signs Vital Signs Date Time Temp Pulse Resp B/P (MAP) Pulse Ox O2 Delivery O2 Flow Rate FiO2 05/07/19 05:45 97.9 129 19 163/91 (115) 100 Room Air 97.9 EKG EKG [] Radiology/Procedures Radiology/Procedures [] Course & Med Decision Making Course & Med Decision Making Pertinent Labs and Imaging studies reviewed. (See chart for details) [Exam consistent with IV amphetamine use with early soft tissue abscess. Antibiotics given. Patient instructed to fill antibiotics complete full course and follow-up with PCP tomorrow or return to the ED if symptoms worsen or difficulty obtaining follow-up. He is further instructed to follow-up with outpatient drug rehabilitation. Patient verbalizes understanding and agreement with treatment plan] Dragon Disclaimer Dragon Disclaimer This electronic medical record was generated, in whole or in part, using a voice recognition dictation system. Departure Departure Impression: Primary Impression: Soft tissue infection Additional Impression: IV drug abuse Disposition: HOME, SELF-CARE Condition: STABLE Patient Instructions: Cellulitis, [id number] Additional Instructions: Take newly prescribed antibiotics as directed and apply warm compresses. Follow up with your PCP tomorrow and outpatient rehab. Return to the ED if difficulty obtaining follow up or symptoms worsen. Scripts Clindamycin Hcl (CLINDAMYCIN HCL) 300 Mg Capsule 1 CAP PO TID, #30 CAP Prov: CHARBEL ALBERTS DO 05/07/19 Problem Qualifiers CHARBEL ALBERTS DO May 07, 2019 07:13
== END 2019-05-07 06:45 | disposition home or self-care (01) ==
LOC: ER 05:23
DX: B99.8 Other infectious disease (principal); I10 Essential (primary) hypertension; K86.1 Other chronic pancreatitis; F10.10 Alcohol abuse, uncomplicated; F12.90 Cannabis use, unspecified, uncomplicated
CPT/HCPCS: 99283